=== PATIENT | male | born 1940 | race Caucasian/White ===

== ENCOUNTER 2017-12-23 20:45 | Inpatient (IN) | payer OTHER, MEDICARE ==
[~2017-12-23] VITALS: Ht 177.8 cm; Wt 87.2 kg
[~2017-12-23 20:45] MED LIST: ALL300 PO; ASPCH81X PO; LISI-461 PO; MULTCHW PO; OMEGCAP2 PO; PRLSR20 PO; TERA5CAP PO; TRAM-10 PO; [UNRECOGNIZED DRUG - CODE] PO
[2017-12-23] MEDS ORDERED: SODIUM CHLORIDE 0.9% 1000ML 1,000 ML IV STA ×2 (21:15→22:52)
[2017-12-23] MEDS ORDERED: ONDANSETRON INJ 2 MG/ML 2 ML VIAL IV STA (21:15)
[2017-12-23] MEDS ORDERED: ACETAMINOPHEN 500 MG TAB PO STA (21:15)
--- NOTE | 2017-12-23 21:26 | EMERGENCY ROOM VISIT NOTE ---
History Report prepared by Kalpana: Radha Berrios Under the Supervision of: Dr. Familia Giron M.D. First contact with patient: 21:09 Chief Complaint: ILLNESS Stated Complaint: LOSS OF APPETITE, EXTREME MUSCLE PAIN, JOINT PAIN History of Present Illness The patient is a 77 year old male who presents to the Emergency Room with complaints of constant generalized illness beginning six days ago. The patient reports muscle pain, fatigue, joint pain, decreased appetite, sorethroat, and diarrhea. The patient went to a walk in clinic and to Dr. Powers's office where he had a strep test which was negative. He denies having a flu swab. The patient did not get a flu shot this year. He denies any cough, shortness of breath, fever, nasal congestion, or abdominal pain. The patient states he has urinated on himself and lost control of his bowels yesterday. The patient states he has had no sick contacts. The patient states he had a dentist appointment two days before he got sick. He denies any cardiac history. Source of History: patient Onset: six days ago Position: other (generalized) Quality: other (illness) Timing: constant Associated Symptoms: + sorethroat, + diarrhea, No fevers, No cough, No SOB Review of Systems See HPI for pertinent positives & negatives. A total of 10 systems reviewed and were otherwise negative. Past Medical & Surgical Medical Problems: (1) GRISELDA (acute kidney injury) (2) Hyperkalemia (3) No Known Active Medical Problems Family History Patient reports no known family medical history. Social History Smoking Status: Never Smoker Marital Status: Housing Status: lives with significant other Occupation Status: employed Current/Historical Medications Scheduled Allopurinol (Allopurinol), 300 MG PO QAM Aspirin (Aspirin Chewable), 81 MG PO QAM Calcium Carbonate-Cholecalcife (Calcium 500-100 mg-Unit), 1 TAB PO QAM Krill Oil (Krill Oil), 1 CAP DAILY Lisinopril (Zestril), 20 MG PO DAILY Multiple Vitamins W/ Minerals (Centrum Silver), 1 TAB PO QAM Naproxen (Aleve), 440 MG PO prn ud Omeprazole (Prilosec), 20 MG PO QAM Terazosin Hcl (Hytrin), 5 MG PO HS Allergies Coded Allergies: No Known Allergies (Verified , 11/30/15) Physical Exam Vital Signs Date Time Temp Pulse Resp B/P (MAP) Pulse Ox O2 Delivery O2 Flow Rate FiO2 12/23/17 23:01 90 12/23/17 22:59 90 16 125/61 95 Room Air 12/23/17 20:49 36.9 87 20 127/67 93 Room Air Physical Exam GENERAL: Patient is in no acute distress. HEENT: No acute trauma, normocephalic atraumatic, mucous membranes dry, no nasal congestion, no scleral icterus, thrush-like patches on soft and hard palate. NECK: No stridor, no adenopathy, no meningismus, trachea is midline. LUNGS: Clear to auscultation bilaterally, no wheeze, no rhonchi, breath sounds equal. HEART: Without murmurs gallops or rubs, regular rate and rhythm. ABDOMEN: Soft, nontender, bowel sounds positive, no hernias, no peritonitis. EXTREMITIES: No cyanosis or edema, full range of motion of all the joints without pain or difficulty, no signs for acute trauma. NEUROLOGIC: Oriented x 3, no acute motor or sensory deficits, no focal weakness. SKIN: Flat, erythematous, blanching, patchy, rash noted about the body and extremities. Medical Decision & Procedures ER Provider Diagnostic Interpretation: Radiology results as stated below per my review and radiologist interpretation: CHEST ONE VIEW PORTABLE FINDINGS: Lung volumes are mildly diminished. Linear bibasilar opacities suggest atelectasis or scarring. There are few calcified granulomas. There is no evidence for pulmonary edema and there is no consolidation to suggest pneumonia. Mild cardiomegaly is noted. There is no pneumothorax or pleural effusion. Calcified mediastinal and bilateral hilar lymph nodes are noted. IMPRESSION: 1. No acute cardiopulmonary findings. 2. Linear bibasilar opacities suggestive of atelectasis or scarring. Electronically signed by: Joe Thompson M.D. CT ABDOMEN & PELVIS Without Contrast: Small bilateral pleural effusion with adjacent atelectasis and trace pericardial effusion. Calcified granulomata within liver and spleen. Question mild gallbladder wall thickening. Pancreas and adrenal glands are unremarkable. Probable cysts within both kidneys. No hydronephrosis. Bowel is unremarkable. Appendix is unremarkable. Degenerative changed of the osseous structures. Radiologist: Robin Lara MD Laboratory Results 12/23/17 21:50 Red Blood Count 3.93, Mean Corpuscular Volume 85.5, Mean Corpuscular Hemoglobin 29.8, Mean Corpuscular Hemoglobin Concent 34.8, Mean Platelet Volume 11.8, Neutrophils (%) (Auto) 80.1, Lymphocytes (%) (Auto) 13.2, Monocytes (%) (Auto) 4.8, Eosinophils (%) (Auto) 1.5, Basophils (%) (Auto) 0.2, Neutrophils # (Auto) 4.20, Lymphocytes # (Auto) 0.69, Monocytes # (Auto) 0.25, Eosinophils # (Auto) 0.08, Basophils # (Auto) 0.01 12/23/17 21:50 Test 12/23/17 21:40 12/23/17 21:50 12/23/17 23:30 Influenza Type A Antigen Neg for Influ A (NEG) Influenza Type B Antigen Neg for Influ B (NEG) White Blood Count 5.24 K/uL (4.8-10.8) Red Blood Count 3.93 M/uL (4.7-6.1) Hemoglobin 11.7 g/dL (14.0-18.0) Hematocrit 33.6 % (42-52) Mean Corpuscular Volume 85.5 fL (80-100) Mean Corpuscular Hemoglobin 29.8 pg (25-34) Mean Corpuscular Hemoglobin Concent 34.8 g/dl (32-36) Platelet Count 46 K/uL (130-400) Mean Platelet Volume 11.8 fL (7.4-10.4) Neutrophils (%) (Auto) 80.1 % Lymphocytes (%) (Auto) 13.2 % Monocytes (%) (Auto) 4.8 % Eosinophils (%) (Auto) 1.5 % Basophils (%) (Auto) 0.2 % Neutrophils # (Auto) 4.20 K/uL (1.4-6.5) Lymphocytes # (Auto) 0.69 K/uL (1.2-3.4) Monocytes # (Auto) 0.25 K/uL (0.11-0.59) Eosinophils # (Auto) 0.08 K/uL (0-0.5) Basophils # (Auto) 0.01 K/uL (0-0.2) RDW Standard Deviation 45.3 fL (36.4-46.3) RDW Coefficient of Variation 14.5 % (11.5-14.5) Immature Granulocyte % (Auto) 0.2 % Immature Granulocyte # (Auto) 0.01 K/uL (0.00-0.02) Dohle Bodies 1+ Platelet Estimate SIGNIFIC DECREASED Erythrocyte Sedimentation Rate > 90 mm/hr (0-14) Prothrombin Time 10.4 SECONDS (9.0-12.0) Prothromb Time International Ratio 1.0 (0.9-1.1) Activated Partial Thromboplast Time 29.4 SECONDS (21.0-31.0) Partial Thromboplastin Ratio 1.1 Anion Gap 16.0 mmol/L (3-11) Est Creatinine Clear Calc Drug Dose 6.8 ml/min Estimated GFR () 4.8 Estimated GFR (Non- 4.2 BUN/Creatinine Ratio 15.8 (10-20) Lactic Acid Level 0.9 mmol/L (0.4-2.0) Calcium Level 9.2 mg/dl (8.5-10.1) Magnesium Level 1.9 mg/dl (1.8-2.4) Total Bilirubin 1.1 mg/dl (0.2-1) Aspartate Amino Transf (AST/SGOT) 27 U/L (15-37) Alanine Aminotransferase (ALT/SGPT) 23 U/L (12-78) Alkaline Phosphatase 171 U/L (45-117) Total Creatine Kinase 19 U/L (39-308) Troponin I < 0.015 ng/ml (0-0.045) C-Reactive Protein 27.30 mg/dl (0-0.29) Total Protein 6.7 gm/dl (6.4-8.2) Albumin 2.4 gm/dl (3.4-5.0) Globulin 4.3 gm/dl (2.5-4.0) Albumin/Globulin Ratio 0.6 (0.9-2) Thyroid Stimulating Hormone (TSH) 1.630 uIu/ml (0.300-4.500) Lyme Disease IgG Antibody NEG (NEG) Lyme Disease IgM Antibody NEG (NEG) Monoscreen NEG (NEG) Laboratory results reviewed by me. Medications Administered Medications (Trade) Dose Ordered Sig/Nahomy Route Start Time Stop Time Status Last Admin Dose Admin Ondansetron HCl (Zofran Inj) 4 mg NOW STAT IV 12/23/17 21:15 12/23/17 21:19 DC 12/23/17 21:56 4 MG Sodium Chloride 1,000 ml @ 999 mls/hr Q1H1M STAT IV 12/23/17 21:15 12/23/17 22:15 DC 12/23/17 21:56 999 MLS/HR Acetaminophen (Tylenol Tab) 1,000 mg NOW STAT PO 12/23/17 21:15 12/23/17 21:19 DC 12/23/17 21:56 1,000 MG Ceftriaxone Sodium 2000 mg/ Dextrose 70 ml @ 100 mls/hr ONE STAT IV 12/23/17 22:51 12/23/17 23:32 DC 12/23/17 23:16 100 MLS/HR Sodium Chloride 1,000 ml @ 200 mls/hr Q5H STAT IV 12/23/17 22:52 12/24/17 03:51 12/23/17 23:01 200 MLS/HR ECG Indication: weakness Rate (beats per minute): 83 Rhythm: normal sinus Findings: no acute ischemic change, other (baseline artifact) Change: EKG interpreted by me. ED Course 2109: The patient was evaluated in room B2. A complete history and physical exam was performed. 2114: Ordered Acetaminophen 1000 mg PO, Sodium Chloride 1000 ml @ 999 mls/hr IV , Zofran Inj 4 mg IV. 2250: Ordered Ceftriaxone Sodium 2000 mg/Dextrose 70 ml @ 100 mls/hr IV, Sodium Chloride 1000 ml @ 200 mls/hr IV. 2: Ordered Sodium Chloride 1000 ml @ 200 mls/hr IV. 2253: I updated the patient on his test results. He is agreeable to a CT. 2301: Discussed the patient's case with Dr. Nevarez-[facility] [place] Resident. The patient will be evaluated for further management. Medical Decision Differential diagnoses: dehydration, endocarditis, sepsis, lyme's disease, UTI, pneumonia, rhabdomyolysis, viral illness, influenza, renal or liver failure. There is no leukocytosis. The patient is anemic and he has a low platelet count. Renal panel testing suggests some mild acidosis. There is acute renal failure with a creatinine of over 10. No hepatitis. The patient appears to be in a euthyroid state. Urinalysis result is pending although, the nursing staff felt the urine dip was fairly unremarkable. Chest film does not show pneumonia or CHF. EKG shows a normal sinus rhythm, no acute ischemia. Cardiac enzyme testing times one is not consistent with acute cardiac injury. Lactic acid level is not elevated making sepsis less likely. Blood cultures are pending. Abdominal and pelvis CT does not show hydronephrosis, no bowel obstruction. Sedimentation rate and CRP are markedly elevated. [place] testing, flu testing and Lyme disease testing is negative. The patient received IV saline, oral Tylenol, IV Zofran. He was given IV ceftriaxone. The patient is in need of a hospital stay. He is somewhat acidotic and in acute renal failure. He has a low platelet count and is anemic. I am concerned about the possibility of endocarditis/bacteremia, especially, given his recent dental cleaning. Further care in the hospital is warranted. I spoke to case management, I discussed all my results with the patient. The on- call hospitalist was consulted. Medication Reconcilliation Current Medication List: was personally reviewed by me Blood Pressure Screening Patient's blood pressure: Normal blood pressure Consults Time Called: 2257 Consulting Physician: Dr. Loyola Resident Returned Call: 2300 Discussed the patient's case with Dr. Loyola Resident. The patient will be evaluated for further management. Impression Primary Impression: Acute renal failure Additional Impressions: Thrombocytopenia Rash Dehydration Scribe Attestation The scribe's documentation has been prepared under my direction and personally reviewed by me in its entirety. I confirm that the note above accurately reflects all work, treatment, procedures, and medical decision making performed by me. Departure Information Dispostion Being Evaluated By Hospitalist Referrals No Doctor, Assigned (PCP) Patient Instructions My [facility] Problem Qualifiers
[2017-12-23] MEDS ORDERED: KRIL1000 (21:35)
[2017-12-23] MEDS ORDERED: LISI-725 PO (21:35)
[2017-12-23] MEDS ORDERED: NAPR1TAB9 PO (21:38)
--- NOTE | 2017-12-23 21:40 | DIAGNOSTIC IMAGING REPORT ---
CHEST ONE VIEW PORTABLE CLINICAL HISTORY: Altered mental status. Weakness. COMPARISON STUDY: Chest CT April 03, 2011. FINDINGS: Lung volumes are mildly diminished. Linear bibasilar opacities suggest atelectasis or scarring. There are few calcified granulomas. There is no evidence for pulmonary edema and there is no consolidation to suggest pneumonia. Mild cardiomegaly is noted. There is no pneumothorax or pleural effusion. Calcified mediastinal and bilateral hilar lymph nodes are noted. IMPRESSION: 1. No acute cardiopulmonary findings. 2. Linear bibasilar opacities suggestive of atelectasis or scarring. Electronically signed by: Joe Thompson M.D. 12/23/2017 9:39 PM Dictated Date/Time: 12/23/2017 9:37 PM
[2017-12-23 22:18] LABS: PTT PATIENT 29.4 SECONDS (21.0-31.0)
[2017-12-23 22:32] LABS: INFLUENZA B ANTIGEN Neg for Influ B (NEG)
[2017-12-23 22:36] LABS: BASO % 0.2 %; BASO ABS # 0.01 K/uL (0-0.2); EOS % 1.5 %; EOS ABS # 0.08 K/uL (0-0.5); HEMATOCRIT 33.6 % (42-52); HEMOGLOBIN 11.7 g/dL (14.0-18.0); IG# 0.01 K/uL (0.00-0.02); LYMPH % 13.2 %; LYMPH ABS # 0.69 K/uL (1.2-3.4); MEAN CELL VOLUME 85.5 fL (80-100); MEAN CORPUSCULAR HEMOGLOBIN 29.8 pg (25-34); MEAN CORPUSCULAR HGB CONC 34.8 g/dl (32-36); MEAN PLATELET VOLUME 11.8 fL (7.4-10.4); MONO % 4.8 %; MONO ABS # 0.25 K/uL (0.11-0.59); NEUT % 80.1 %; PLATELET COUNT 46 K/uL (130-400); RED CELL DISTRIBUTION WIDTH CV 14.5 % (11.5-14.5); RED CELL DISTRIBUTION WIDTH SD 45.3 fL (36.4-46.3); WHITE BLOOD COUNT 5.24 K/uL (4.8-10.8)
[2017-12-23 22:41] LABS: ALBUMIN 2.4 gm/dl (3.4-5.0); ALKALINE PHOSPHATASE 171 U/L (45-117); ALT/SGPT 23 U/L (12-78); AST/SGOT 27 U/L (15-37); BLOOD UREA NITROGEN 168 mg/dl (7-18); CALCIUM 9.2 mg/dl (8.5-10.1); CARBON DIOXIDE 18 mmol/L (21-32); GLUCOSE 84 mg/dl (70-99); POTASSIUM 5.2 mmol/L (3.5-5.1); SODIUM 133 mmol/L (136-145); TOTAL PROTEIN 6.7 gm/dl (6.4-8.2)
[2017-12-23] MEDS ORDERED: CEFTRIAXONE SOD INJ 2,000 MG in DEXTROSE 5% 50ML 50 ML IV STA (22:51)
--- NOTE | 2017-12-23 23:41 | History and Physical ---
History & Physical Date & Time of Service: Dec 23, 2017 at 23:41 Chief Complaint: Loss Of Appetite, Extreme Muscle Pain, Joint Pain Primary Care Physician: Stefano Powers M.D. History of Present Illness Source: patient, clinic records, hospital records This is a 77 yo m with a h/o htn, gout that is presenting to us with general malaise, myalgias, fatigue x 7 days. The patient states that 7 days ago he started to suffer from severe sore throat, myalgias, subjective fever and fatigue. He was seen in a walk in clinic on dec 18 the day the symptoms started and rapid strep negative so symptomatic treatment was recommended. He then returned on dec 222017 when he had ongoing symptoms and in fact worsening in his sore throat. He was assessed and started on Augmentin/ Doxy ( apparently only has three doses) and symptomatic treatment. No fever was measured on either of these visits. He came into the ED for further worsening of symptoms despite increasing fluid intake and taking abx. He was evaluated in the ED and found to have a Cr of 10, ESR > 90 and received 2L of NSS as well as 2 G of rocephin for concern for endocarditis as he had dental work (not cleaning) two days prior to the symptoms starting. No history of ESRD/ cysts in kidney in the family. Past Medical/Surgical History HTN Gout Hernia repair GERD Family History Patient reports no known family medical history. Social History Smoking Status: Never Smoker Smokeless Tobacco Use: No Alcohol Use: none Drug Use: none Marital Status: Occupational Status: employed Immunizations History of Influenza Vaccine: Unknown History of Tetanus Vaccine?: Unknown History of Pneumococcal: Unknown History of Hepatitis B Vaccine: Unknown Multi-Drug Resistant Organisms History of MDRO: No Allergies Coded Allergies: No Known Allergies (Verified , 11/30/15) Home Medications Scheduled Allopurinol (Allopurinol), 300 MG PO QAM Aspirin (Aspirin Chewable), 81 MG PO QAM Calcium Carbonate-Cholecalcife (Calcium 500-100 mg-Unit), 1 TAB PO QAM Krill Oil (Krill Oil), 1 CAP DAILY Lisinopril (Zestril), 20 MG PO DAILY Multiple Vitamins W/ Minerals (Centrum Silver), 1 TAB PO QAM Naproxen (Aleve), 440 MG PO prn ud Omeprazole (Prilosec), 20 MG PO QAM Terazosin Hcl (Hytrin), 5 MG PO HS Review of Systems Constitutional: + fever, + chills, + sweats, + weakness, + fatigue, No weight loss Eyes: No worsening of vision ENT: No hearing loss Respiratory: + cough (prior to onset of symptoms but have since resolved), No sputum, No wheezing, No shortness of breath, No dyspnea on exertion, No dyspnea at rest Cardiovascular: No chest pain, No palpitations Abdomen: No pain, No nausea, No vomiting, No diarrhea, No constipation Musculoskeletal: + joint pain, + muscle pain Genitourinary - Male: + problem reported (decreased U/O however no change in colour, no hematuria ), No hematuria, No dysuria Neurologic: + weakness, No numbness/tingling, No balance problems Psychiatric: No depression symptoms, No anxiety Endocrine: + fatigue Integumentary: + rash (new olman like rash noted by the ED physician) Physical Exam Vital Signs Date Time Temp Pulse Resp B/P (MAP) Pulse Ox O2 Delivery O2 Flow Rate FiO2 12/23/17 23:01 90 12/23/17 22:59 90 16 125/61 95 Room Air 12/23/17 20:49 36.9 87 20 127/67 93 Room Air General Appearance: + mild distress Head: normocephalic, atraumatic Eyes: normal inspection, + pertinent finding (slightly injected sclera) ENT: + pertinent finding (white patches on entire tongue, unable to remove, difficult to assess tonsils well , dry mucus membranes ) Neck: no JVD, trachea midline Respiratory/Chest: normal breath sounds, no respiratory distress, no accessory muscle use Cardiovascular: regular rate, rhythm, no murmur, normal peripheral pulses Abdomen/GI: normal bowel sounds, non tender, soft Back: normal inspection, no CVA tenderness, normal range of motion Extremities/Musculoskelatal: normal inspection, no calf tenderness, no pedal edema, normal range of motion Neurologic/Psych: alert, normal mood/affect, oriented x 3 Skin: + pertinent finding (diffuse olman/ erythematous rash, no utricaria, not raised; mostly on chest, back, neck and some extension to extremities) Lymphatic: + cervical node abnormality (ant cerv lymph) Diagnostics Laboratory Results Results Past 24 Hours Test 12/23/17 21:15 12/23/17 21:40 12/23/17 21:50 Range/Units Influenza Type A Antigen Neg for Influ A NEG Influenza Type B Antigen Neg for Influ B NEG White Blood Count 5.24 4.8-10.8 K/uL Red Blood Count 3.93 4.7-6.1 M/uL Hemoglobin 11.7 14.0-18.0 g/dL Hematocrit 33.6 42-52 % Mean Corpuscular Volume 85.5 80-100 fL Mean Corpuscular Hemoglobin 29.8 25-34 pg Mean Corpuscular Hemoglobin Concent 34.8 32-36 g/dl Platelet Count 46 130-400 K/uL Mean Platelet Volume 11.8 7.4-10.4 fL Neutrophils (%) (Auto) 80.1 % Lymphocytes (%) (Auto) 13.2 % Monocytes (%) (Auto) 4.8 % Eosinophils (%) (Auto) 1.5 % Basophils (%) (Auto) 0.2 % Neutrophils # (Auto) 4.20 1.4-6.5 K/uL Lymphocytes # (Auto) 0.69 1.2-3.4 K/uL Monocytes # (Auto) 0.25 0.11-0.59 K/uL Eosinophils # (Auto) 0.08 0-0.5 K/uL Basophils # (Auto) 0.01 0-0.2 K/uL RDW Standard Deviation 45.3 36.4-46.3 fL RDW Coefficient of Variation 14.5 11.5-14.5 % Immature Granulocyte % (Auto) 0.2 % Immature Granulocyte # (Auto) 0.01 0.00-0.02 K/uL Dohle Bodies 1+ Platelet Estimate SIGNIFIC DECREASED Erythrocyte Sedimentation Rate > 90 0-14 mm/hr Prothrombin Time 10.4 9.0-12.0 SECONDS Prothromb Time International Ratio 1.0 0.9-1.1 Activated Partial Thromboplast Time 29.4 21.0-31.0 SECONDS Partial Thromboplastin Ratio 1.1 Sodium Level 133 136-145 mmol/L Potassium Level 5.2 3.5-5.1 mmol/L Chloride Level 99 98-107 mmol/L Carbon Dioxide Level 18 21-32 mmol/L Anion Gap 16.0 3-11 mmol/L Blood Urea Nitrogen 168 7-18 mg/dl Creatinine 10.70 0.60-1.40 mg/dl Est Creatinine Clear Calc Drug Dose 6.8 ml/min Estimated GFR () 4.8 Estimated GFR (Non- 4.2 BUN/Creatinine Ratio 15.8 10-20 Random Glucose 84 70-99 mg/dl Lactic Acid Level 0.9 0.4-2.0 mmol/L Calcium Level 9.2 8.5-10.1 mg/dl Magnesium Level 1.9 1.8-2.4 mg/dl Total Bilirubin 1.1 0.2-1 mg/dl Aspartate Amino Transf (AST/SGOT) 27 15-37 U/L Alanine Aminotransferase (ALT/SGPT) 23 12-78 U/L Alkaline Phosphatase 171 45-117 U/L Total Creatine Kinase 19 39-308 U/L Troponin I < 0.015 0-0.045 ng/ml C-Reactive Protein 27.30 0-0.29 mg/dl Total Protein 6.7 6.4-8.2 gm/dl Albumin 2.4 3.4-5.0 gm/dl Globulin 4.3 2.5-4.0 gm/dl Albumin/Globulin Ratio 0.6 0.9-2 Thyroid Stimulating Hormone (TSH) 1.630 0.300-4.500 uIu/ml Lyme Disease IgG Antibody NEG NEG Lyme Disease IgM Antibody NEG NEG Monoscreen NEG NEG Microbiology Results 12/23/17 Blood Culture, Received Pending 12/23/17 Blood Culture, Received Pending Diagnostic Radiology [~ rep ct add3]] CHEST ONE VIEW PORTABLE CLINICAL HISTORY: Altered mental status. Weakness. COMPARISON STUDY: Chest CT April 03, 2011. FINDINGS: Lung volumes are mildly diminished. Linear bibasilar opacities suggest atelectasis or scarring. There are few calcified granulomas. There is no evidence for pulmonary edema and there is no consolidation to suggest pneumonia. Mild cardiomegaly is noted. There is no pneumothorax or pleural effusion. Calcified mediastinal and bilateral hilar lymph nodes are noted. IMPRESSION: 1. No acute cardiopulmonary findings. 2. Linear bibasilar opacities suggestive of atelectasis or scarring. CT abd- - per stat rad: - small bilat pleural effusions and atelectasis - possible thickening of gall bladder wall - probably cyts in bilat kidneys without hydronephrosis - appendix unremarkable EKG HR 83 Normal sinus rhythm Normal ECG When compared with ECG of 05-MAY-2015 07:24, No significant change was found Impression Assessment and Plan This is a 77 yo m presenting to us with severe GRISELDA possibly secondary to dehydration, viral process or bacterial infection. The patient was on both augmentin and doxy and in light of this viral exanthem type rash which started today there is question if this is secondary to EBV infection even though monospot screen is negative. The patient did have recent dental work however with no new murmur, no history of high risk valve abnormalities unlikely however will truly assess with echo and continue coverage with Rocephin 2 G daily ( cross reactivity to amoxil low so unlikely to result in a worsening rash ) with one dose of dapto ( vanco considered however deferred because of Cr level ). Peripheral smears and viral panels of possible viral sources ordered. GRISELDA secondary to dehydration on CKD III, reflective of prerenal - BL cr is approx 1.4-1.5 - 2 L NSS in ED and cont at 150cc/h - I&O and daily weight - Consult nephro- discussed case with swine extension field specialist and they are aware - repeat CMP in am Myalgias/ erythematous rash - as above will assess for EBV immunoglobulins as well as CMV and parvovirus - echo to assess for possible endocarditis - Rocephin 2 G IV daily cont - Dapto x 1 dose - consult ID - flu neg, lyme neg - peripheral smear - There is possible thickening of the gallbladder wall, no symptoms of gallbladder dysfunction and abd exam was benign; will wait for final read from [facility] radiologists and possible HIDA vs gall bladder USG can be at the discretion of the day team Thrombocytopenia - repeat in am, peripheral smear Hyperkalemia - no concerning changes on EKG - repeat in am - monitor on tele overnight and repeat BMP in am Hyponatremia - NSS @ 150 cc/h - recheck level in the am HTN - lisinopril held - terazosin cont - ASA held because of PLT Gout - allopurinol held because of Cr GERD cont PPI equiv to omeprazole 20 mg DVT Prophylaxis SCD - reassess plt in am and reassess for chemical prophylaxis Attending addendum: I have physically seen this patient, have supervised the medical residents activities, and agree with the H&P unless as otherwise noted. Assessment and Plan: Acute kidney failure/dehydration/prerenal state/history CKD stage 3/hypertension -- The patient will be admitted to telemetry for serial cardiac enzymes, serial EKG's, cardiac rhythm monitoring and a complete echocardiogram. Order renal ultrasound Follow urine culture and sensitivity Received 2 L normal saline in the ED, and continue 150 ML's per hour Hold lisinopril and aspirin Continue Terazosin Case has been discussed with nephrology, who will see the patient in a.m. Myalgias/rash-- Viral studies sent. Testing for influenza and Lyme are both negative Ceftriaxone 1 g IV daily Daptomycin 1 dose given Thrombocytopenia-- Viral studies pending Order peripheral smear Follow-up for developing ITP Level of Care Telemetry Advanced Directives Existing Advance Directive: No Existing Living Will: No Existing Power of Dry Cell Sealer: No Resuscitation Status FULL RESUSCITATION VTE Prophylaxis VTE Risk Assessment Done? Y/N: Yes Risk Level: Moderate Given or contraindicated: SCD's Social Service Consult None Apply Note Total Time: Critical Care 30 - 74 minutes Additional Copies To She Gallardo C.R.N.P. Baker, Jeffrey H., M.D.
[2017-12-23] MEDS ORDERED: ACETAMINOPHEN 325 MG TAB PO PRN (23:45)
[2017-12-24] VITALS (24 sets, daily range): BP systolic 90–134; BP diastolic 50–71; PULSE 7–86; TEMP 36.5–37; O2SAT 90–98; Ht 177.8 cm; Wt 87.2 kg
[2017-12-24] MEDS ORDERED: FLUCONAZOLE / NSS 200 MG in PREMIXED NSS 100 ML IV STA (00:28)
[2017-12-24] MEDS ORDERED: CLOTRIMAZOLE 10 MG TROCHE LOZ STA (00:29)
[2017-12-24] MEDS ORDERED: MoRPHine SULFATE 4 MG/ML 1 ML CARP\\VIAL IV PRN (00:30)
[2017-12-24] MEDS: MoRPHine SULFATE 2 MG/ML CARP IV PRN (00:31)
[2017-12-24] MEDS ORDERED: HYDROmorphone INJ 1 MG/ML SYR IV STA (01:40)
[2017-12-24] MEDS: SODIUM CHLORIDE 0.9% 1000ML 1,000 ML IV SCH ×2 (01:57→08:40)
[2017-12-24] MEDS ORDERED: DAPTOmycin IV 550 MG in SODIUM CHLORIDE 0.9% 50ML 50 ML IV SCH (02:15)
[2017-12-24] MEDS ORDERED: DAPTOmycin IV 550 MG in SYRINGE 0 ML IV SCH (02:30)
[2017-12-24] MEDS ORDERED: FLUCONAZOLE CONSULT ACTIVE PRN (05:00)
[2017-12-24 05:57] LABS: HEMATOCRIT 30.9 % (42-52); HEMOGLOBIN 10.8 g/dL (14.0-18.0); MEAN CELL VOLUME 86.1 fL (80-100); MEAN CORPUSCULAR HEMOGLOBIN 30.1 pg (25-34); RED CELL DISTRIBUTION WIDTH CV 14.5 % (11.5-14.5); WHITE BLOOD COUNT 4.93 K/uL (4.8-10.8)
[2017-12-24 05:59] LABS: MEAN PLATELET VOLUME 10.9 fL (7.4-10.4); PLATELET COUNT 41 K/uL (130-400)
[2017-12-24 06:34] LABS: BASO % 0.2 %; BASO ABS # 0.01 K/uL (0-0.2); EOS ABS # 0.05 K/uL (0-0.5); IG# 0.01 K/uL (0.00-0.02); LYMPH % 12.2 %; MONO ABS # 0.15 K/uL (0.11-0.59); NEUT % 83.4 %; NEUT ABS # 4.11 K/uL (1.4-6.5)
--- NOTE | 2017-12-24 06:45 | Family Medicine Progress Note ---
Progress Note Date of Service Dec 24, 2017. Subjective Pt evaluation today including: conversation w/ patient, conversation w/ family , physical exam, chart review, lab review, review of studies, conversation w/ regulatory affairs consultant, review of inpatient medication list Patient states that he is aching all over. He states that the pain started approximately 2 weeks ago around the same time that he started having shakes/ tremors and some nausea. His last blood work was 1-2 years ago he was never told of kidney issues at that time. Currently patient states that he is feeling "just terrible". He otherwise denies fevers/chills, headaches, CP, palpitations, dyspnea, abdominal pain, lower extremity swelling or rashes. He has diminished appetite. He denies issues with ambulation. He denies any urinary symptoms with pressure/stream, excessive nocturia, or dribbling or urinary retention. Stooling appropriately. ROS is unremarkable except as noted above. Objective Vital Signs Date Time Temp Pulse Resp B/P (MAP) Pulse Ox O2 Delivery O2 Flow Rate FiO2 12/24/17 05:20 99/51 (67) 12/24/17 04:00 Room Air 12/24/17 03:31 37.0 86 19 90/50 (63) 91 Nasal Cannula 12/24/17 01:17 36.7 86 16 117/60 98 Room Air 12/24/17 00:19 80 20 143/68 98 Room Air 12/23/17 23:01 90 12/23/17 22:59 90 16 125/61 95 Room Air 12/23/17 20:49 36.9 87 20 127/67 93 Room Air Physical Exam General Appearance: WD/WN, no apparent distress Eyes: normal inspection ENT: hearing grossly normal, + pertinent finding (Dry mucosal membrane) Neck: supple, no adenopathy Respiratory/Chest: lungs clear, normal breath sounds, no respiratory distress, no accessory muscle use Cardiovascular: regular rate, rhythm, no murmur Abdomen: normal bowel sounds, non tender, soft Extremities: non-tender, normal inspection, no pedal edema, no calf tenderness Neurologic/Psychiatric: alert, normal mood/affect, oriented x 3 Skin: normal color, warm/dry, no rash Laboratory Results Results Past 24 Hours Test 12/24/17 07:31 12/24/17 10:15 12/24/17 11:43 12/24/17 16:49 Range/Units Prostate Specific Antigen 5.900 0.000-4.000 ng/ml Anti-Streptolysin O Antibody Screen NEG <200 IU IU/ml Hepatitis A IgM Antibody NON-REACTIVE NON-REACTIVE Hepatitis B Surface Antigen NEG NEG Hepatitis B Core IgM Antibody NON-REACTIVE NON-REACTIVE Hepatitis C Antibody NEG NEG Phosphorus Level 4.7 2.5-4.9 mg/dl Magnesium Level 1.9 1.8-2.4 mg/dl Iron Level 12 35-175 mcg/dl Total Iron Binding Capacity 155 250-450 mcg/dl Transferrin 133 200-360 mg/dl Transferrin % Saturation 6 20-50 % Ferritin 563.3 8.0-388.0 ng/ml 25-Hydroxy Vitamin D Total 31.3 30-100 ng/ml Parathyroid Hormone (Intact) 84.9 18.4-80.1 pg/mL Hepatitis B Surface Antibody NEG Test 12/24/17 20:35 12/25/17 04:59 Range/Units Urine Random Creatinine 199.0 mg/dl Urine Random Sodium 48 mEq/L Assessment and Plan 77 yo M presenting to us with severe GRISELDA possibly secondary to dehydration, viral process or bacterial infection. The patient was on both augmentin and doxy and in light of this viral exanthem type rash which started today there is question if this is secondary to EBV infection even though monospot screen is negative. The patient did have recent dental work however with no new murmur, no history of high risk valve abnormalities unlikely however will truly assess with echo and continue coverage with Rocephin 2 G daily (cross reactivity to amoxil low so unlikely to result in a worsening rash) with one dose of dapto ( vanco considered however deferred because of Cr level). Peripheral smears and viral panels of possible viral sources ordered. GRISELDA - secondary to dehydration on CKD III, reflective of prerenal and some degree of post-renal from prostatomegaly. Baseline Cr is approx 1.4-1.5. IVF with NSS initially. Nephrology consulted, rec appreciated. s/p emergent permcath insertion for uremic symptoms - For dialysis tonight - Renal U/S ordered - Urine Na and urine Cr orderd - Multiple Myeloma and rheumatology labs ordered and pending - I&O and daily weight - Trend BMP Myalgias/ erythematous rash - ID consulted, recs appreciated. Flu neg, lyme neg - EBV immunoglobulins as well as CMV and parvovirus pending - Echo to assess for possible endocarditis. Consider ongoing need for daptomycin - Continue Rocephin 2 G IV daily, Trace blood and urine cultures. Evidence of inflammation - ESR >90, CRP ~27 - Trend ESR/CRP - Rheumatology labs ordered and pending (concern for ANCA disease) Thrombocytopenia - possibly secondary to uremia - Trend CBC - ASA held because of low platelets Hyperkalemia - no concerning changes on EKG, and - Trend BMP Hyponatremia - resolved with IVF - Trend BMP HTN - Lisinopril held - Continue terazosin Gout - Allopurinol held because of Cr GERD - Omeprazole 20 mg DVT Prophylaxis SCD - Trend plt and reassess for chemical prophylaxis Resident Physician Supervision Note: I interviewed and examined the patient. Discussed with Dr. Vazquez and agree with findings and plan as documented in the note. Any exceptions or clarifications are listed here: None Documented By: Robin Salas hurting all over no significant LUTS other than 1x nocturia vitals noted fatigued somewhat shaky ARF - ?etiology - due to uremia and acid-base balance dialysis acutely. bland sediment but without clear etiology agree sending serologic w/u; ?BPH related but no clear hx c/w obstructive uropathy otherwise as above Resident Tracking Resident Involvement: Resident Care Provided Care Provided: Adult Hospital Medicine
[2017-12-24 06:54] LABS: ALBUMIN 1.9 gm/dl (3.4-5.0); CALCIUM 8.4 mg/dl (8.5-10.1); CREATININE 10.4 mg/dl (0.60-1.40); POTASSIUM 4.5 mmol/L (3.5-5.1); TOTAL PROTEIN 5.7 gm/dl (6.4-8.2)
--- NOTE | 2017-12-24 06:55 | DIAGNOSTIC IMAGING REPORT ---
ABD/PELVIS WITHOUT FOR STONE HISTORY: 77 years-old Male EVALUATE FLANK PAIN/HEMATURIA acute bilateral flank pain with hematuria COMPARISON: CT abdomen and pelvis 05/16/2011 TECHNIQUE: Multiple axial CT images of the abdomen and pelvis were obtained without contrast. A dose lowering technique was used consistent with the principals of OSCAR. FINDINGS: Trace bilateral pleural effusions with subsegmental bibasilar groundglass and linear consolidative opacities suggesting atelectasis or scarring. Respiratory motion limits evaluation of the lung bases. Calcified granulomas of the lung bases are noted in addition to multiple calcified shah limit of the liver and spleen. No pneumatosis or pneumoperitoneum identified. Inferior cardiac chambers are mildly enlarged with trace pericardial effusion. Coronary arterial disease. Hepatic steatosis. Unchanged 8 mm low attenuating lesion of the right hepatic lobe is again seen suggesting hepatic cyst. Spleen is enlarged, 15 cm. Pancreas and adrenal glands are unremarkable. There is suggestion of mild pericholecystic edema which is difficult to visualize secondary to moderate patient motion which limits the study. Moderate nonspecific bilateral perinephric stranding. Low attenuating lesions of the kidneys are again seen bilaterally which are not completely characterized on this noncontrast study, largest of which measures 2.3 cm within the superior pole right kidney suggesting renal cyst. 1.5 cm lesion of the anterior interpolar left kidney also suggests renal cyst. No renal calculi or obstructive uropathy. Prostate is enlarged with mass effect upon the bladder base. Mild bladder wall thickening with partial distention. Moderate atherosclerosis of the aorta. No bulky adenopathy. No bowel obstruction. Indeterminate 6 mm nodular density involve the left lower quadrant adjacent to the descending colon sigmoid junction as seen on image 324 series 3 however suggests benign etiology secondary to unchanged size and appearance from comparison study 05/16/2011. High attenuating material within the appendix may reflect appendicolith. Appendix is not appear to be inflamed. No definite bowel wall thickening. Mild diastases recti. Soft tissues are unremarkable. The bones appear intact. Degenerative changes are seen within the spine. Chondrocalcinosis of the bilateral hips. IMPRESSION: 1. Prostatomegaly with moderate circumferential wall thickening of the bladder suggesting sequela of chronic bladder outlet obstruction. Considering history of hematuria, correlate with urinalysis to exclude cystitis. 2. No renal calculi or obstructive uropathy. 3. Trace bilateral pleural effusions with bibasilar subsegmental atelectasis. 4. Prior granulomatous disease. 5. Splenomegaly. 6. Hepatic steatosis. 7. Cardiomegaly with trace pericardial effusion. The above report was generated using voice recognition software. It may contain grammatical, syntax or spelling errors. Electronically signed by: Brandon Wen M.D. 12/24/2017 6:53 AM Dictated Date/Time: 12/24/2017 6:43 AM
[2017-12-24] MEDS: CLOTRIMAZOLE 10 MG TROCHE LOZ SCH ×5 (07:00→23:00)
[2017-12-24 07:19] LABS: HEMOGLOBIN A1C 5.4 % (4.5-5.6)
[2017-12-24] MEDS: HYDROmorphone INJ 1 MG/ML SYR IV PRN ×3 (07:35→20:40)
[2017-12-24] MEDS: CALCIUM 600MG + VIT D 400 IU TAB PO SCH (07:40)
[2017-12-24] MEDS: PANTOprazole SOD 40 MG TAB PO SCH (07:40)
[2017-12-24] MEDS: CEROVITE ADV FORMULA TAB PO SCH (07:40)
[2017-12-24] MEDS ORDERED: NON-FORMULARY MEDICATION (Krill Oil 1 CAP) SCH (09:00)
[2017-12-24] MEDS ORDERED: FLUCONAZOLE / NSS 200 MG in PREMIXED NSS 100 ML IV SCH (09:00)
--- NOTE | 2017-12-24 09:06 | ECHOCARDIOGRAM REPORT ---
*NOTICE TO RECEIVING DEMOCRAT AGENCY This information is strictly Confidential and protected under [place] law. [place] law prohibits you from making any further disclosure of this information unless further disclosure is expressly permitted by the written consent of the person to whom it pertains or is authorized by law. A general authorization for the release of medical or other information is not sufficient for this purpose. Hospital accepts no responsibility if the information is made available to any other person, INCLUDING THE PATIENT. Interpretation Summary * Name: CLEVELAND GONZALEZ Study Date: 12/24/2017 06:32 AM BP: 99/51 mmHg * Patient Location: C.2E\S\E203\S\1 HR: 86 * : 1940 (M/d/yyyy) Gender: Male Height: 70 in * Age: 77 yrs Ethnicity: CA Weight: 201 lb * Ordering Physician: Nhung Tate * Referring Physician: Self, Referred * Performed By: Jean Claude Wilkinson RCS * * Reason For Study: Endocarditis * BSA: 2.1 m2 * -- Conclusions -- * Left ventricular systolic function is normal. * Grade I diastolic dysfunction, (abnormal relaxation pattern). * Borderline left atrial enlargement. * Right ventricular systolic pressure is normal. * The inferior vena cava is mildly dilated. * There are no obvious valvular lesions suggestive of endocarditis, but image quality was suboptimal. Procedure Details * A complete two-dimensional transthoracic echocardiogram was performed (2D, M-mode, Doppler and color flow Doppler). Left Ventricle * The left ventricle is normal in size. * There is normal left ventricular wall thickness. * Left ventricular systolic function is normal. * Ejection Fraction = 55-60%. * Grade I diastolic dysfunction, (abnormal relaxation pattern). * The left ventricular wall motion is normal. Right Ventricle * The right ventricle is normal in size and function. Atria * Borderline left atrial enlargement. * Right atrial size is normal. Mitral Valve * The mitral valve is grossly normal. * Significant mitral regurgitation is absent. Tricuspid Valve * The tricuspid valve is not well visualized, but is grossly normal. * There is trace tricuspid regurgitation. * Right ventricular systolic pressure is normal. Aortic Valve * The aortic valve is normal in structure and function. * No hemodynamically significant valvular aortic stenosis. * There is no significant aortic regurgitation. Pulmonic Valve * The pulmonic valve is not well visualized. Great Vessels * The aortic root is normal size. Pericardium/Pleural * There is no pericardial effusion. Great Vessels * The inferior vena cava is mildly dilated. MMode 2D Measurements and Calculations IVSd 1.1 cm IVSs 1.4 cm LVIDd 4.3 cm LVIDs 2.9 cm LVPWd 1.0 cm LVPWs 1.3 cm IVS/LVPW 1.0 FS 33.8 % EDV(Teich) 83.7 ml ESV(Teich) 31.0 ml EF(Teich) 62.9 % EDV(cubed) 80.3 ml ESV(cubed) 23.3 ml EF(cubed) 71.0 % % IVS thick 34.7 % % LVPW thick 30.7 % LV mass(C)d 151.4 grams LV mass(C)dI 72.4 grams/m\S\2 LV mass(C)s 128.7 grams LV mass(C)sI 61.5 grams/m\S\2 SV(Teich) 52.7 ml SI(Teich) 25.2 ml/m\S\2 SV(cubed) 57.0 ml SI(cubed) 27.3 ml/m\S\2 Ao root diam 3.2 cm Ao root area 7.9 cm\S\2 ACS 1.7 cm LA dimension 4.1 cm LA/Ao 1.3 EDV(sp4-el) 117.0 ml ESV(sp4-el) 47.0 ml EF(sp4-el) 59.8 % EDV(sp2-el) 87.0 ml ESV(sp2-el) 38.0 ml EF(sp2-el) 56.3 % SV(sp4-el) 70.0 ml SI(sp4-el) 33.5 ml/m\S\2 SV(sp2-el) 49.0 ml SI(sp2-el) 23.4 ml/m\S\2 Doppler Measurements and Calculations MV E max rakel 85.2 cm/sec MV A max rakel 94.9 cm/sec MV E/A 0.90 MV P1/2t max rakel 100.3 cm/sec MV P1/2t 72.6 msec MVA(P1/2t) 3.0 cm\S\2 MV dec slope 404.4 cm/sec\S\2 MV dec time 0.28 sec Ao V2 max 176.7 cm/sec Ao max PG 12.5 mmHg Ao max PG (full) 5.8 mmHg LV V1 max PG 6.7 mmHg LV V1 max 129.0 cm/sec PA V2 max 105.3 cm/sec PA max PG 4.4 mmHg TR max rakel 215.1 cm/sec
--- NOTE | 2017-12-24 10:44 | Nephrology Consultation ---
Nephrology Consultation Date & Providers Date of Consultation: Dec 24, 2017. Primary Care Provider: Stefano Powers M.D. Referring Provider: Reason for Consultation Evaluation management for acute kidney injury, hyperkalemia and metabolic acidosis. History of Present Illness Isaak is a 77-year-old gentlemen has been otherwise healthy with past medical history only significant for well-controlled hypertension and gout, admit to the hospital with acute kidney injury. Nephrology consult was requested to manage acute kidney injury, hyperkalemia and metabolic acidosis. Electronic medical records including labs and imaging are reviewed in detail during patient 's visit. Isaak was otherwise doing well until a week ago when he started feeling poorly. He had sore throat and was evaluated at urgent care, rapid strep throat was negative and manage conservatively. As sore throat did not improve he went to urgent care again on 12/22/2017 when he was started on Augmentin. However, he continued to feel poorly and presented to the emergency room yesterday for further evaluation. He reports poor p.o. intake for last almost a week. Urine output has been minimum and he reports urinating barely for last 7 days. He denies having fever or chills. Denies any recent change in his weight. He has chronic pain, has been taking naproxen 400 mg twice a day for many years. He was also on lisinopril 20 mg daily and omeprazole. On admission creatinine was 10.8, potassium 5.2 and bicarbonate was 18. Prior creatinine from 2014 was 1.4. Urine output has been minimum since admission. Blood pressure was stable. Urinalysis with trace proteinuria but no hematuria, has granular cast and calcium oxalate crystal. CT abdomen pelvis without contrast on admission was negative for hydronephrosis, has bilateral renal cyst , has evidence of chronic bladder outlet obstruction. Has been on lisinopril 20 mg daily, blood pressure has been well controlled. No history of diabetes, proteinuria coronary artery disease. Never smoked, no known family history of chronic kidney disease or end-stage renal disease. Currently feeling " terrible", but denies any specific symptoms, denies shortness of breath or chest pain. P.o. intake almost none. Remain oligo anuric. Allergies Coded Allergies: No Known Allergies (Verified , 11/30/15) Inpatient Medications Current Inpatient Medications Medications (Trade) Dose Ordered Sig/Nahomy Route Start Time Stop Time Status Last Admin Dose Admin Acetaminophen (Tylenol Tab) 650 mg Q4H PRN PO 12/23/17 23:45 01/22/18 23:44 Morphine Sulfate (MoRPHine SULFATE INJ) 2 mg Q2H PRN IV 12/24/17 00:30 01/07/18 00:29 12/24/17 00:31 2 MG Morphine Sulfate (MoRPHine SULFATE INJ) 4 mg Q2H PRN IV 12/24/17 00:30 01/07/18 00:29 Clotrimazole (Mycelex 10MG Itzel) 1 itzel [id number] SUMAN 12/24/17 07:00 01/03/18 06:59 12/24/17 07:00 1 ITZEL Ceftriaxone Sodium 2000 mg/ Dextrose 70 ml @ 100 mls/hr Q24H IV 12/24/17 23:00 12/24/17 23:41 Sodium Chloride 1,000 ml @ 150 mls/hr Q6H40M IV 12/24/17 02:00 01/23/18 01:59 12/24/17 08:40 150 MLS/HR Hydromorphone HCl (Dilaudid Inj) 1 mg Q3H PRN IV 12/24/17 01:45 01/07/18 01:44 12/24/17 07:35 1 MG Terazosin HCl (Hytrin Cap) 5 mg HS PO 12/24/17 21:00 01/23/18 20:59 Calcium/Vitamin D (Caltrate Plus Tab) 1 tab QAM PO 12/24/17 09:00 01/23/18 08:59 12/24/17 07:40 1 TAB Multivitamins/ Minerals (Multivitamin W/ Minerals Tab) 1 tab QAM PO 12/24/17 09:00 01/23/18 08:59 12/24/17 07:40 1 TAB Pantoprazole Sodium (Protonix Tab) 40 mg QAM PO 12/24/17 09:00 01/23/18 08:59 12/24/17 07:40 40 MG Fluconazole (Consult) 1 ea UD PRN N/A 12/24/17 05:00 01/23/18 04:59 Tamsulosin HCl (Flomax Cap) 0.4 mg HS PO 12/24/17 21:00 01/23/18 20:59 Fluconazole/ Sodium Chloride 100 mg/Prmx 50 ml @ 100 mls/hr Q24H IV 12/24/17 23:00 01/03/18 22:59 Family History Patient reports no known family medical history. Patient could not remember much detail but denied any family history of chronic kidney disease or end-stage renal disease. Social History Smoking Status: Never Smoker Smokeless Tobacco Use: No Alcohol Use: none Drug Use: none Marital Status: Occupation: employed Review of Systems A complete review of systems was performed. Pertinent positives are noted above. All other systems are negative. Physical Exam Date Time Temp Pulse Resp B/P (MAP) Pulse Ox O2 Delivery O2 Flow Rate FiO2 12/24/17 08:00 36.9 86 20 103/52 (69) 91 Room Air 12/24/17 08:00 Room Air 12/24/17 05:20 99/51 (67) 12/24/17 04:00 Room Air 12/24/17 03:31 37.0 86 19 90/50 (63) 91 Nasal Cannula 12/24/17 01:17 36.7 86 16 117/60 98 Room Air 12/24/17 00:19 80 20 143/68 98 Room Air 12/23/17 23:01 90 12/23/17 22:59 90 16 125/61 95 Room Air 12/23/17 20:49 36.9 87 20 127/67 93 Room Air GENERAL: Elderly male, AAA x 3, ill-appearing, lethargic, falls asleep easily. HEENT: Atraumatic, normocephalic. NECK: Supple, no JVD, no carotid bruit appreciated. ENT: No sinus tenderness MOUTH and THROAT: dry oral mucosa, no oral ulcer or pharyngeal erythema RESPIRATORY: Normal breathing efforts, no accessory muscle use, clear to auscultation bilaterally, no wheezes or rales. CARDIOVASCULAR: S1, S2 normal, rate rhythm regular. ABDOMEN: Soft, nontender, positive bowel sound. MUSCULOSKELETAL: No CVA tenderness. No joint swelling, erythema or tenderness. Normal range of motion. SKIN: No skin rash EXTREMITY: No lower extremity edema. Tremor in hands. NEURO: No gross focal neurological deficit, speech fluent. PSYCHIATRY: Normal mood and judgment Laboratory Results Last 24 Hours Test 12/23/17 21:40 12/23/17 21:50 12/23/17 23:30 12/24/17 05:26 Influenza Type A Antigen Neg for Influ A Influenza Type B Antigen Neg for Influ B White Blood Count 5.24 K/uL 4.93 K/uL Red Blood Count 3.93 M/uL 3.59 M/uL Hemoglobin 11.7 g/dL 10.8 g/dL Hematocrit 33.6 % 30.9 % Mean Corpuscular Volume 85.5 fL 86.1 fL Mean Corpuscular Hemoglobin 29.8 pg 30.1 pg Mean Corpuscular Hemoglobin Concent 34.8 g/dl 35.0 g/dl Platelet Count 46 K/uL 41 K/uL Mean Platelet Volume 11.8 fL 10.9 fL Neutrophils (%) (Auto) 80.1 % 83.4 % Lymphocytes (%) (Auto) 13.2 % 12.2 % Monocytes (%) (Auto) 4.8 % 3.0 % Eosinophils (%) (Auto) 1.5 % 1.0 % Basophils (%) (Auto) 0.2 % 0.2 % Neutrophils # (Auto) 4.20 K/uL 4.11 K/uL Lymphocytes # (Auto) 0.69 K/uL 0.60 K/uL Monocytes # (Auto) 0.25 K/uL 0.15 K/uL Eosinophils # (Auto) 0.08 K/uL 0.05 K/uL Basophils # (Auto) 0.01 K/uL 0.01 K/uL RDW Standard Deviation 45.3 fL 46.0 fL RDW Coefficient of Variation 14.5 % 14.5 % Immature Granulocyte % (Auto) 0.2 % 0.2 % Immature Granulocyte # (Auto) 0.01 K/uL 0.01 K/uL Nucleated RBC Absolute Count (auto) 0.00 K/uL Nucleated Red Blood Cells % 0.0 % Dohle Bodies 1+ 2+ Platelet Estimate SIGNIFIC DECREASED Erythrocyte Sedimentation Rate > 90 mm/hr Prothrombin Time 10.4 SECONDS Prothromb Time International Ratio 1.0 Activated Partial Thromboplast Time 29.4 SECONDS Partial Thromboplastin Ratio 1.1 Sodium Level 133 mmol/L 136 mmol/L Potassium Level 5.2 mmol/L 4.5 mmol/L Chloride Level 99 mmol/L 102 mmol/L Carbon Dioxide Level 18 mmol/L 16 mmol/L Anion Gap 16.0 mmol/L 17.0 mmol/L Blood Urea Nitrogen 168 mg/dl 153 mg/dl Creatinine 10.70 mg/dl 10.40 mg/dl Est Creatinine Clear Calc Drug Dose 6.8 ml/min 7.0 ml/min Estimated GFR () 4.8 5.0 Estimated GFR (Non- 4.2 4.3 BUN/Creatinine Ratio 15.8 14.8 Random Glucose 84 mg/dl 76 mg/dl Lactic Acid Level 0.9 mmol/L Calcium Level 9.2 mg/dl 8.4 mg/dl Magnesium Level 1.9 mg/dl Total Bilirubin 1.1 mg/dl 0.8 mg/dl Aspartate Amino Transf (AST/SGOT) 27 U/L 25 U/L Alanine Aminotransferase (ALT/SGPT) 23 U/L 21 U/L Alkaline Phosphatase 171 U/L 146 U/L Total Creatine Kinase 19 U/L Troponin I < 0.015 ng/ml C-Reactive Protein 27.30 mg/dl Total Protein 6.7 gm/dl 5.7 gm/dl Albumin 2.4 gm/dl 1.9 gm/dl Globulin 4.3 gm/dl 3.8 gm/dl Albumin/Globulin Ratio 0.6 0.5 Thyroid Stimulating Hormone (TSH) 1.630 uIu/ml Lyme Disease IgG Antibody NEG Lyme Disease IgM Antibody NEG Monoscreen NEG Urine Color DK YELLOW Urine Appearance CLOUDY Urine pH 5.0 Urine Specific [place] 1.023 Urine Protein TRACE Urine Glucose (UA) NEG Urine Ketones TRACE Urine Occult Blood NEG Urine Nitrite NEG Urine Bilirubin NEG Urine Urobilinogen NEG Urine Leukocyte Esterase NEG Urine WBC (Auto) 1-5 /hpf Urine RBC (Auto) 0-4 /hpf Urine Hyaline Casts (Auto) 5-10 /lpf Urine Epithelial Cells (Auto) >30 /lpf Urine Bacteria (Auto) NEG Urine Crystals See comments Urine Pathogenic Casts 0-3 GRANULAR CASTS /lpf Urine Yeast (Auto) Toxic Granulation 1+ Echinocytes 1+ Estimated Average Glucose 108 mg/dl Hemoglobin A1c 5.4 % Test 12/24/17 07:31 Prostate Specific Antigen 5.900 ng/ml Anti-Streptolysin O Antibody Screen NEG IU/ml Impression (1) GRISELDA (acute kidney injury) (2) Anemia (3) Thrombocytopenia (4) Hyperkalemia (5) Metabolic acidosis Isaak Is a 77-year-old gentlemen the with history of hypertension, gout and chronic NSAID use admitted to the hospital with 1 week history of fatigue, feeling unwell, decreased p.o. intake and oliguria. On admission he was found to be in acute kidney injury, creatinine was 10.8, BUN 163 with prior creatinine from 2015 1.5. He also had hyperkalemia and metabolic acidosis. On admission he was found to be volume depleted, started with fluid resuscitation, so far received at least 3 liters of normal saline. He remain oligo anuric. There has not been any change in renal function or electrolyte abnormality. Has history of chronic NSAID use for many years. His clearly uremic with significantly elevated BUN and creatinine. Has history of hypertension seems to be well controlled at home he was on lisinopril 20 milligram daily only. Was on allopurinol for gout. No history of diabetes or coronary artery disease. Unclear etiology for GRISELDA, differentials include ATN, NSAID induced nephropathy , progressive loss of renal function from chronic bladder outlet obstruction. Unlikely acute GN. Recommendations --Consulted vascular surgery for urgent placement tunneled dialysis catheter to start on dialysis to improve uremic symptom and electrolyte abnormality. Plan for 2 hours dialysis this afternoon with low blood flow --place garcia catheter and monitor intake and output --will discontinue IV fluid when start on dialysis --check PTH, iron study, phosphate --continue to hold lisinopril, avoid other nephrotoxic medications --dose medications for GFR less than 10 --offered to explain patient's current clinical condition to his and other family members but patient would like to take care of that on his own Thank you for allowing me to participate in your patient's care. It was a pleasure to see Isaak
--- NOTE | 2017-12-24 11:50 | Progress Note ---
Progress Note Date of Service Dec 24, 2017. Progress Note ID Consult Dictated #[id number] A/P: 1. Elevated Inflammatory markers -Doubt related to infection, but will continue abx for 1-2 days pending cultures -thank you
--- NOTE | 2017-12-24 11:55 | INFECT. DISEASE CONSULTATION ---
DATE OF CONSULTATION: 12/24/2017 HISTORY OF PRESENT ILLNESS: This is a 77-year-old gentleman with a history of gout and hypertension who was admitted to the hospital with malaise and general fatigue for the past week. He was seen in an urgent care center and had a negative strep. However, his symptoms did not resolve and he represented and was placed on a course of Augmentin and doxycycline. He did not have any improving symptoms and therefore came to the Emergency Room. In the ER, he was found to have an elevated creatinine of 10. He denies any history of kidney disease. He also was hyperkalemic. A CAT scan of the abdomen and pelvis showed renal cyst and an enlarged prostate with likely bladder outlet obstruction. A Ahn was attempted to be placed prior to my examination, but could not be passed. He did have a flu swab, a Lyme titer and an ASO titer, all of which were negative. His PSA is elevated at 5.9. His UA was negative. His sed rate and CRP were elevated. Therefore, infectious diseases was consulted. He was started empirically on Rocephin and remains on this. He denies any fevers currently. He denies any cough, shortness of breath, chest pain, nausea, vomiting or diarrhea. He denies any urinary symptoms at home and states he was able to urinate without difficulty. He denies any hematuria. He states he did have a Ahn only once before, but he has not had any urology followup. He does not have a leukocytosis. Urine and blood cultures are pending. His remaining review of systems is unremarkable. PAST MEDICAL AND SURGICAL HISTORY: Significant for hypertension, gout, GERD and hernia repair. FAMILY HISTORY: Noncontributory. SOCIAL HISTORY: Negative for tobacco use, alcohol use or drug use. ALLERGIES: He has no known drug allergies. CURRENT MEDICATIONS: Include Rocephin, fluconazole, Hytrin, Flomax, Caltrate, multivitamins, Protonix, Mycelex, Dilaudid, morphine and Tylenol. PHYSICAL EXAMINATION: VITAL SIGNS: He is afebrile, pulse 86, respiratory rate is 20, blood pressure is 103/52 and oxygen saturation is 91%-98% on room air. GENERAL: He is awake, alert and oriented x3. He is in no acute distress. HEENT: Mucous membranes are moist. Extraocular muscles are intact. HEART: Regular. LUNGS: Clear. ABDOMEN: Soft, nontender, and nondistended. There is no lower extremity edema. SKIN: Without rash. LABORATORY STUDIES: CBC today reveals a white blood cell count of 4.9, hemoglobin 10.8 and platelets 141. Chemistry panel reveals a sodium of 136, potassium 4.5, chloride 102, bicarbonate 16, BUN 153, creatinine is 10.4, glucose is 108. LFTs are within normal limits. TSH is normal. CRP was elevated at 27. UA is negative. Serologies are as above. Micro is pending. IMAGING: As above. ASSESSMENT AND PLAN: Elevated inflammatory markers. I do not see any infectious etiology at this time; however, he can be continued on antibiotics for an additional 24 hours pending the results of his blood and urine cultures.
[2017-12-24 12:00] LABS: HEP C IGG 13 YRS+OLDER_RFLX NEG (NEG)
[2017-12-24 12:35] LABS: PHOSPHORUS 4.7 mg/dl (2.5-4.9)
--- NOTE | 2017-12-24 12:38 | Surgery Consultation ---
Consultation Date of Service Dec 24, 2017. (oSnja Church, ANA) Chief Complaint GRISELDA, need permcath (Sonja Church PA-C) History of Present Illness The patient is a 77 year old male with PMH of gout and HTN, admitted d/t severe generalized illness and GRISELDA noted on labs, seen in consultation today for TDC insertion for HD. Currently undergoing workup for viral and bacterial etiologies. Pt somewhat lethargic today, but does rouse easily to voice. Denies prior HD, fever, chills, chest pain, SOB, abd pain, N/V, rest pain, claudication, other complaints. (Sonja Church, ANA) Vitals Vital Signs Past 12 Hours Date Time Temp Pulse Resp B/P (MAP) Pulse Ox O2 Delivery O2 Flow Rate FiO2 12/24/17 12:00 Room Air 12/24/17 12:00 36.9 86 20 107/59 (75) 91 Room Air 12/24/17 08:00 36.9 86 20 103/52 (69) 91 Room Air 12/24/17 08:00 Room Air 12/24/17 05:20 99/51 (67) 12/24/17 04:00 Room Air 12/24/17 03:31 37.0 86 19 90/50 (63) 91 Nasal Cannula 12/24/17 01:17 36.7 86 16 117/60 98 Room Air (Sonja Church, ANA) Allergies Coded Allergies: No Known Allergies (Verified , 11/30/15) Home Medications Scheduled Allopurinol (Allopurinol), 300 MG PO QAM Aspirin (Aspirin Chewable), 81 MG PO QAM Calcium Carbonate-Cholecalcife (Calcium 500-100 mg-Unit), 1 TAB PO QAM Krill Oil (Krill Oil), 1 CAP DAILY Lisinopril (Zestril), 20 MG PO DAILY Multiple Vitamins W/ Minerals (Centrum Silver), 1 TAB PO QAM Naproxen (Aleve), 440 MG PO prn ud Omeprazole (Prilosec), 20 MG PO QAM Terazosin Hcl (Hytrin), 5 MG PO HS Problem List Medical Problems: (1) GRISELDA (acute kidney injury) (2) Anemia (3) Hyperkalemia (4) Metabolic acidosis (5) No Known Active Medical Problems (Sonja Church, ANA) Surgical / Medical History Hx Cardiac Surgery: No Hx Abdominal Surgery: Yes (UMBILICAL HERNIA REPAIR) Hx Cancer Surgery: No Hx Thoracic Surgery: No Hx Orthopedic: Yes (LEFT LEG RECONSTRUCTION FROM FALL, LEFT ANKLE FUSION, LEFT ARM ORIF) Hx Urinary Tract Surgery: No Past Medical/Surgical History: Hypertension (Sonja Church PA-C) Family History Patient reports no known family medical history. (Sonja Church, ANA) Patient reports no known family medical history. (Harshad Cobian M.D.) Social History Smoking Status: Never Smoker Hx Tobacco Use In Past Year?: No Hx Alcohol Use - Type & Amnt: No Hx Substance Use -Type & Amnt: No (Sonja Church, ANA) Review of Systems Constitutional: + malaise, No chills, No fever Skin: No change in color Eyes: No visual changes ENMT: + sore throat Respiratory: No cough, No MILLER, No hemoptysis, No short of breath Cardiovascular: No chest pain, No palpitations, No syncope, No edema, No intermittent claudication Gastrointestinal: + appetite changes, No abdominal pain, No nausea, No vomiting Musculoskeletal: + joint pain, + muscle pain Neurologic: + weakness, + headache, + lethargy, No dizziness, No numbness, No tingling (Sonja Church, ANA) Physical Exam Constitutional: General Apperance: well-nourished, well-developed Level of Distress: NAD, acutely ill Psychiatric: Mental Status: active & alert, normal mood, normal affect Orientation: oriented except where noted, to time, to place, to person Memory: recent memory normal, remote memory normal Head: normocephalic, atraumatic Eyes: EOM: EOMI ENMT: hearing grossly normal Neck: trachea midline Lungs: Respiratory effort: no dyspnea Auscultation: no wheezing, no rales/crackles, no rhonchi, decreased breath sounds Cardiovascular: Apical Impulse: not displaced Heart Auscultation: RRR, no murmurs, no rubs, no gallops Peripheral Pulses: Pulses: full and equal, in all extremities except if noted Bruits: none appreciated Carotid Pulse: normal on the left, normal on the right Brachial Pulses: normal on the left, normal on the right Radial Pulse: normal on the left, normal on the right Femoral Pulse: normal on the left, normal on the right Posterior Tibialis Pulse: decreased on the left, decreased on the right Dorsalis Pedis Pulse: decreased on the left, decreased on the right Abdomen: Bowel Sounds: normal Inspection & Palpation: soft, non-distended, no tenderness, guarding & rebound Musculoskeletal: normal strength (5/5 throughout), normal tone Extremities: Upper Right: no cyanosis, no edema, no varicosities Upper Left: no cyanosis, no edema, no varicosities Lower Right: no cyanosis, no edema, no varicosities Lower Left: no cyanosis, no edema, no varicosities Neurologic: Cranial Nerves: grossly intact (Sonja Church, PA-C) Assessment and Plan ASSESSMENT and PLAN: GRISELDA thrombocytopenia Pt for TDC insertion today by Dr Cobian. Upon review of labs, significant thrombocytopenia noted with platelet count of 41. Will administer platelets potline monitor to OR in preop area to minimize risk of bleeding. (Sonja Church, PA-C) Patient was seen, examined, and chart reviewed. Agree with exam and treatment plan of the Vascular PA. (Harshad Cobian M.D.)
[2017-12-24] MEDS ORDERED: FENTANYL CITRATE INJ 50 MCG/1 ML 2 ML VIAL ONE (13:06)
[2017-12-24] MEDS ORDERED: MIDAZOLAM HCL 1 MG/ML 2ML VIAL ONE (13:06)
[2017-12-24] MEDS ORDERED: HEPARIN SOD (PORCINE) 5000 UNIT/ML 1 ML VIAL ONE (13:06)
--- NOTE | 2017-12-24 13:20 | Progress Note ---
Progress Note Date of Service Dec 24, 2017. Progress Note Patient for insertion of permcath. I have discussed the risks options and benefits of the procedure with the patient. The patient understands the risks options and benefits and agrees to the procedure.
--- NOTE | 2017-12-24 13:49 | Pre Sedation Assessment ---
Pre Sedation Assessment General Date of Sedation: Dec 24, 2017. Vital Signs Past 12 Hours Date Time Temp Pulse Resp B/P (MAP) Pulse Ox O2 Delivery O2 Flow Rate FiO2 12/24/17 12:00 Room Air 12/24/17 12:00 36.9 86 20 107/59 (75) 91 Room Air 12/24/17 08:00 36.9 86 20 103/52 (69) 91 Room Air 12/24/17 08:00 Room Air 12/24/17 05:20 99/51 (67) 12/24/17 04:00 Room Air 12/24/17 03:31 37.0 86 19 90/50 (63) 91 Nasal Cannula Review Cardiovascular: regular rate, rhythm Lungs: lungs clear Pre-Sedation Airway Assessment Smoking Status: Never Smoker Short Thick Neck: Yes Thyro-mental Distance: > 3 Finger Breadths Oral Cavity: WNL Mallampati Classification: Class IV ASA Classification: Class IV NPO Status Date of Last Intake of Fluids: Dec 24, 2017 Time of Last Intake of Fluids: 08:00 (coffee black) Date of Last Intake of Solids: Dec 23, 2017 Time of Last Intake of Solids: 00:00 Procedure Planning Current Medications Reviewed: Yes Notes The planned sedation has been discussed with the patient. Informed Consent was obtained. I have identified the patient, determined the appropriateness of sedation and have assessed the patient immediately prior to the procedure. All medicine(s) and interventions are by my order.
[2017-12-24] MEDS ORDERED: MIDAZOLAM HCL 1 MG/ML 2ML VIAL IV ONE (14:15)
[2017-12-24] MEDS ORDERED: FENTANYL CITRATE INJ 50 MCG/1 ML 2 ML VIAL IV ONE (14:15)
[2017-12-24] MEDS ORDERED: LIDOCAINE HCL 1% 20 ML VIAL INJ ONE (14:15)
[2017-12-24] MEDS ORDERED: HEPARIN SOD (PORCINE) 5000 UNIT/ML 1 ML VIAL IV ONE (14:27)
--- NOTE | 2017-12-24 14:30 | [facility] Operative Report ---
Operative Report Operative Date Dec 24, 2017. Pre-Operative Diagnosis Acute kidney injury Post-Operative Diagnosis Same Procedure(s) Performed Insertion of right internal jugular vein permcath Usn localization of right internal jugular vein Fluoro for postioning Surgeon Aranza Product Controller Surgeon(s) none Estimated Blood Loss 5cc Findings tip in distal SVC Specimens none Anesthesia Local with sedation Complication(s) None Disposition Indications This is a 77-year-old male with acute kidney injury. He is in need of dialysis. PermCath insertion was recommended. I have discussed the risks options and benefits of the procedure with the patient. The patient understands the risks options and benefits and agrees to the procedure. Description of Procedure Patient was takent to the angio suite and placed in the supine position. The right side of the neck and chest wall were prepped and draped in a sterile manner. Local anesthesia was then administered to the appropriate areas of the neck and chest wall. Ultrasound was then used to locate the right internal jugular vein. The vein compressed easily, had no filing defects, and was patent. The vein was then punctured under direct ultrasound imaging. A guidewire was then passed centrally under fluoroscopic imaging. A stab wound was then made in the anterior chest wall and a 19 cm permcath was passed from the stab wound on the chest wall to the puncture site on the neck. The puncture site was then dilated till the 14Fr peel away sheath was inserted. The permcath was then inserted through the sheath to a central position in the distal superior vena cava. The peel away sheath was then removed. The catheter was then sutured in place using nylon sutures. The puncture was then closed using a 4-0 Vicryl subcuticular suture. Dermabond was used for a dressing on the puncture site. Both ports aspirated and flushed easily and were then packed with heparin. A sterile dressing was applied to the catheter. The patient left the angio suite in good condition and tolerated the procedure well. I attest to the content of the Intraoperative Record and any orders documented therein. Any exceptions are noted below.
--- NOTE | 2017-12-24 14:48 | Post Sedation Assessment ---
Post Sedation Assessment General Date of Sedation Dec 24, 2017. Vital Signs: Vital Signs Past 12 Hours Date Time Temp Pulse Resp B/P (MAP) Pulse Ox O2 Delivery O2 Flow Rate FiO2 12/24/17 14:30 81 18 119/64 95 Room Air 12/24/17 14:25 80 18 99 Mask 4 12/24/17 14:20 80 18 140/66 99 Mask 4 12/24/17 14:10 12/24/17 13:35 36.5 80 20 124/59 90 12/24/17 12:00 Room Air 12/24/17 12:00 36.9 86 20 107/59 (75) 91 Room Air 12/24/17 08:00 36.9 86 20 103/52 (69) 91 Room Air 12/24/17 08:00 Room Air 12/24/17 05:20 99/51 (67) 12/24/17 04:00 Room Air 12/24/17 03:31 37.0 86 19 90/50 (63) 91 Nasal Cannula Post Procedure Recovery Score Activity: (2) Moves 4 extremities * Respiration: (2) Deep breath/cough Circulation: (2) +/-20% PreAnes Value Consciousness: (2) Fully Awake Oxygen Saturation: (1) O2 needed for >90% Post Anesthesia Score: 9 Discharge Sedation Level of Care: Fast Track Phase II Post Sedation Plan On clinical assessment, the patient appears to have tolerated the sedation without complications. Patient is recovering as anticipated. Patient will continue to be monitored by nursing and may be discharged when sedation discharge criteria are met per below protocol. Upon Completions of procedure and additional 15 minutes continue every 5 minute vital signs and the P.A.R. score; then discharge to a Phase I or Fast Track to Phase II per the following guidelines: * Discharge Patient to appropriate Phase II area if PAR is 8 or greater or return to pre- procedure baseline. The post - procedure orders will be as directed. * If PAR score is less than 8 or not return to pre-procedure baseline then patient will follow Phase I monitoring till PAR is reached for Phase II. The Phase I may be done in procedure room or may call to secure a Phase I area. * If naloxone or flumazenil are used for reversal, hold in Phase I for an additional 60 -120 minutes before discharge to Phase II. Please call the Sedation Physician to re-evaluate and complete post-note for discharge to Phase II area. Do NOT discharge from procedure sedation or Phase 1 until post- sedation evaluation note is complete by procedure /sedation MD Sedation Discharge Instructions to be given to the patient at discharge to home.
[2017-12-24] MEDS ORDERED: NURSING DECISION MEDICATION ORDER SCH (15:45)
--- NOTE | 2017-12-24 16:58 | Urology Consultation ---
History General Date of Service: Dec 24, 2017. Chief Complaint: renal failure, large prostate Primary Care Physician: Stefano Powers M.D. Pt seen a urologist before?: No History of Present Illness I am asked by Dr Cramer to evaluate patient for large prostate and renal failure. He has been feeling poorly for one week. he has total body pain. He says every muscle hurts. He has not had any bothersome urinary symptoms. His ct shows an age appropriate prostate and the bladder dose not look inflamed or distended. He has no pelvic lymphadenopathy or sclerotic lesions to suggest an advanced prostate cancer. Similarly his psa is normal (age adjusted). He is in oliguric renal failure. Dialysis is to start today. Imaging Imaging: CT Laboratory Results Past 24 Hours Test 12/23/17 21:40 12/23/17 21:50 12/23/17 23:30 12/24/17 05:26 Range/Units Influenza Type A Antigen Neg for Influ A NEG Influenza Type B Antigen Neg for Influ B NEG White Blood Count 5.24 4.93 4.8-10.8 K/uL Red Blood Count 3.93 3.59 4.7-6.1 M/uL Hemoglobin 11.7 10.8 14.0-18.0 g/dL Hematocrit 33.6 30.9 42-52 % Mean Corpuscular Volume 85.5 86.1 80-100 fL Mean Corpuscular Hemoglobin 29.8 30.1 25-34 pg Mean Corpuscular Hemoglobin Concent 34.8 35.0 32-36 g/dl Platelet Count 46 41 130-400 K/uL Mean Platelet Volume 11.8 10.9 7.4-10.4 fL Neutrophils (%) (Auto) 80.1 83.4 % Lymphocytes (%) (Auto) 13.2 12.2 % Monocytes (%) (Auto) 4.8 3.0 % Eosinophils (%) (Auto) 1.5 1.0 % Basophils (%) (Auto) 0.2 0.2 % Neutrophils # (Auto) 4.20 4.11 1.4-6.5 K/uL Lymphocytes # (Auto) 0.69 0.60 1.2-3.4 K/uL Monocytes # (Auto) 0.25 0.15 0.11-0.59 K/uL Eosinophils # (Auto) 0.08 0.05 0-0.5 K/uL Basophils # (Auto) 0.01 0.01 0-0.2 K/uL RDW Standard Deviation 45.3 46.0 36.4-46.3 fL RDW Coefficient of Variation 14.5 14.5 11.5-14.5 % Immature Granulocyte % (Auto) 0.2 0.2 % Immature Granulocyte # (Auto) 0.01 0.01 0.00-0.02 K/uL Nucleated RBC Absolute Count (auto) 0.00 0-0 K/uL Nucleated Red Blood Cells % 0.0 % Dohle Bodies 1+ 2+ Platelet Estimate SIGNIFIC DECREASED Peripheral Blood Smear Path Consult Erythrocyte Sedimentation Rate > 90 0-14 mm/hr Prothrombin Time 10.4 9.0-12.0 SECONDS Prothromb Time International Ratio 1.0 0.9-1.1 Activated Partial Thromboplast Time 29.4 21.0-31.0 SECONDS Partial Thromboplastin Ratio 1.1 Sodium Level 133 136 136-145 mmol/L Potassium Level 5.2 4.5 3.5-5.1 mmol/L Chloride Level 99 102 98-107 mmol/L Carbon Dioxide Level 18 16 21-32 mmol/L Anion Gap 16.0 17.0 3-11 mmol/L Blood Urea Nitrogen 168 153 7-18 mg/dl Creatinine 10.70 10.40 0.60-1.40 mg/dl Est Creatinine Clear Calc Drug Dose 6.8 7.0 ml/min Estimated GFR () 4.8 5.0 Estimated GFR (Non- 4.2 4.3 BUN/Creatinine Ratio 15.8 14.8 10-20 Random Glucose 84 76 70-99 mg/dl Lactic Acid Level 0.9 0.4-2.0 mmol/L Calcium Level 9.2 8.4 8.5-10.1 mg/dl Magnesium Level 1.9 1.8-2.4 mg/dl Total Bilirubin 1.1 0.8 0.2-1 mg/dl Aspartate Amino Transf (AST/SGOT) 27 25 15-37 U/L Alanine Aminotransferase (ALT/SGPT) 23 21 12-78 U/L Alkaline Phosphatase 171 146 45-117 U/L Total Creatine Kinase 19 39-308 U/L Troponin I < 0.015 0-0.045 ng/ml C-Reactive Protein 27.30 0-0.29 mg/dl Total Protein 6.7 5.7 6.4-8.2 gm/dl Albumin 2.4 1.9 3.4-5.0 gm/dl Globulin 4.3 3.8 2.5-4.0 gm/dl Albumin/Globulin Ratio 0.6 0.5 0.9-2 Thyroid Stimulating Hormone (TSH) 1.630 0.300-4.500 uIu/ml Lyme Disease IgG Antibody NEG NEG Lyme Disease IgM Antibody NEG NEG Monoscreen NEG NEG Urine Color DK YELLOW Urine Appearance CLOUDY CLEAR Urine pH 5.0 4.5-7.5 Urine Specific [place] 1.023 1.000-1.030 Urine Protein TRACE NEG Urine Glucose (UA) NEG NEG Urine Ketones TRACE NEG Urine Occult Blood NEG NEG Urine Nitrite NEG NEG Urine Bilirubin NEG NEG Urine Urobilinogen NEG NEG Urine Leukocyte Esterase NEG NEG Urine WBC (Auto) 1-5 0-5 /hpf Urine RBC (Auto) 0-4 0-4 /hpf Urine Hyaline Casts (Auto) 5-10 0-5 /lpf Urine Epithelial Cells (Auto) >30 0-5 /lpf Urine Bacteria (Auto) NEG NEG Urine Crystals See comments NONE PRSENT Urine Pathogenic Casts 0-3 GRANULAR CASTS 0 /lpf Urine Yeast (Auto) NONE PRSENT Toxic Granulation 1+ Echinocytes 1+ Estimated Average Glucose 108 mg/dl Hemoglobin A1c 5.4 4.5-5.6 % Test 12/24/17 07:31 12/24/17 10:15 12/24/17 11:43 12/24/17 16:49 Range/Units Prostate Specific Antigen 5.900 0.000-4.000 ng/ml Anti-Streptolysin O Antibody Screen NEG <200 IU IU/ml Hepatitis B Surface Antigen NEG NEG Hepatitis C Antibody NEG NEG Phosphorus Level 4.7 2.5-4.9 mg/dl Magnesium Level 1.9 1.8-2.4 mg/dl Iron Level 12 35-175 mcg/dl Total Iron Binding Capacity 155 250-450 mcg/dl Transferrin 133 200-360 mg/dl Transferrin % Saturation 6 20-50 % Ferritin 563.3 8.0-388.0 ng/ml 25-Hydroxy Vitamin D Total 31.3 30-100 ng/ml Parathyroid Hormone (Intact) 84.9 18.4-80.1 pg/mL Hepatitis B Surface Antibody NEG Microbiology Results 12/23/17 Blood Culture, Received Pending 12/23/17 Blood Culture, Received Pending 12/23/17 Urine Culture, Received Pending Labs were reviewed and are within normal limits unless listed below. Labs are available in the chart and at [facility] Problem List Medical Problems: (1) Acute renal failure Status: Acute (2) Dehydration Status: Acute (3) Rash Status: Acute (4) Thrombocytopenia Status: Acute Past History gout, hypertension Family History Patient reports no known family medical history. not contributory at his age Social History Hx Tobacco Use In Past Year?: No Smoking: non-smoker Alcohol: never Marital status: Housing status: lives with family Occupation status: employed History of MDRO No Allergies Coded Allergies: No Known Allergies (Verified , 11/30/15) Medications Home Medications: Home Meds and Scripts Medications Dose Route/Sig Max Daily Dose Days Date Category Aleve (Naproxen) 220 Mg Tab 440 Mg PO PRN UD 12/23/17 Reported Krill Oil 1 Cap Cap 1 Cap DAILY 12/23/17 Reported Zestril (Lisinopril) 20 Mg Tab 20 Mg PO DAILY 12/23/17 Reported Calcium 500-100 mg-Unit (Calcium Carbonate-Cholecalcife) 1 Chw Chw 1 Tab PO QAM 11/09/15 Reported Centrum Silver (Multiple Vitamins W/ Minerals) 1 Chw Chw 1 Tab PO QAM 11/09/15 Reported Prilosec (Omeprazole) 20 Mg Capcr 20 Mg PO QAM 11/09/15 Reported Aspirin Chewable (Aspirin) 81 Mg Chew 81 Mg PO QAM 11/09/15 Reported Hytrin (Terazosin Hcl) 5 Mg Cap 5 Mg PO HS 04/28/15 Reported Allopurinol 300 Mg Tab 300 Mg PO QAM 04/28/15 Reported Inpatient Medications: Current Inpatient Medications Medications (Trade) Dose Ordered Sig/Nahomy Route Start Time Stop Time Status Last Admin Dose Admin Acetaminophen (Tylenol Tab) 650 mg Q4H PRN PO 12/23/17 23:45 01/22/18 23:44 Morphine Sulfate (MoRPHine SULFATE INJ) 2 mg Q2H PRN IV 12/24/17 00:30 01/07/18 00:29 12/24/17 00:31 2 MG Morphine Sulfate (MoRPHine SULFATE INJ) 4 mg Q2H PRN IV 12/24/17 00:30 01/07/18 00:29 Clotrimazole (Mycelex 10MG Itzel) 1 itzel [id number] SUMAN 12/24/17 07:00 01/03/18 06:59 12/24/17 16:34 1 ITZEL Ceftriaxone Sodium 2000 mg/ Dextrose 70 ml @ 100 mls/hr Q24H IV 12/24/17 23:00 12/24/17 23:41 Hydromorphone HCl (Dilaudid Inj) 1 mg Q3H PRN IV 12/24/17 01:45 01/07/18 01:44 12/24/17 10:51 1 MG Terazosin HCl (Hytrin Cap) 5 mg HS PO 12/24/17 21:00 01/23/18 20:59 Calcium/Vitamin D (Caltrate Plus Tab) 1 tab QAM PO 12/24/17 09:00 01/23/18 08:59 12/24/17 07:40 1 TAB Multivitamins/ Minerals (Multivitamin W/ Minerals Tab) 1 tab QAM PO 12/24/17 09:00 01/23/18 08:59 12/24/17 07:40 1 TAB Pantoprazole Sodium (Protonix Tab) 40 mg QAM PO 12/24/17 09:00 01/23/18 08:59 12/24/17 07:40 40 MG Fluconazole (Consult) 1 ea UD PRN N/A 12/24/17 05:00 01/23/18 04:59 Tamsulosin HCl (Flomax Cap) 0.4 mg HS PO 12/24/17 21:00 01/23/18 20:59 Fluconazole/ Sodium Chloride 100 mg/Prmx 50 ml @ 100 mls/hr Q24H IV 12/24/17 23:00 01/03/18 22:59 Review of Systems Review of Systems Constitutional: + fever, + chills, + frequent headaches Endocrine: + tired/sluggish Gastrointestinal: + abdominal pain, + diarrhea, No nausea, No vomiting, No constipation Cardiovascular: No chest pain, No palpitations, No swelling ankles/feet Respiratory: No shortness of breath, No chronic cough Musculoskeletal: + joint pain, + neck pain, + back pain Male : + nocturia more than once/night, No frequent urination, No painful urination, No urinary retention, No blood in urine, No infections, No kidney stones Physical Exam Vital Signs: Vital Signs Past 12 Hours Date Time Temp Pulse Resp B/P (MAP) Pulse Ox O2 Delivery O2 Flow Rate FiO2 12/24/17 15:11 36.9 78 16 123/65 (84) 95 Nasal Cannula 2.0 12/24/17 14:45 92 Nasal Cannula 2 12/24/17 14:40 92 Nasal Cannula 2 12/24/17 14:35 92 Nasal Cannula 2 12/24/17 14:35 81 18 139/57 88 Room Air 12/24/17 14:30 81 18 119/64 95 Room Air 12/24/17 14:25 80 18 99 Mask 4 12/24/17 14:20 80 18 140/66 99 Mask 4 12/24/17 14:10 12/24/17 13:35 36.5 80 20 124/59 90 12/24/17 12:00 Room Air 12/24/17 12:00 36.9 86 20 107/59 (75) 91 Room Air 12/24/17 08:00 36.9 86 20 103/52 (69) 91 Room Air 12/24/17 08:00 Room Air 12/24/17 05:20 99/51 (67) Physical Exam: General Appearance: WD/WN, + moderate distress, + thin Eyes: bilateral eyes normal inspection ENT: hearing grossly normal Neck: no adenopathy, no JVD, trachea midline Respiratory/Chest: no respiratory distress, no accessory muscle use Gastrointestinal: Abdomen: normal abdomen Bladder: normal bladder Renal: normal renal Hernia: absent hernia Liver: normal liver Spleen: normal spleen Genitourinary - Male: Penis: normal penis, circumcised Urethral Meatus: normal urethral meatus Testes: normal testes Extremities: non-tender, normal inspection, no pedal edema, no calf tenderness , normal capillary refill Neurologic/Psychiatric: alert, normal mood/affect, oriented x 3 Skin: normal color, warm/dry, no rash Lymphatic: no adenopathy Assessment & Plan Assessment & Plan renal failure of unknown origin I see no evidence on ct or bladder scan to suggest urinary retention is the cause I recommend avoiding a garcia catheter as patient is able to void and so I's and O's can be monitored by voiding and bladder scan. A garcia was attempted earlier today and was aborted as patient found it too painful.
[2017-12-24] MEDS: TAMSULOSIN HCL 0.4 MG CAP PO SCH (20:39)
[2017-12-24] MEDS ORDERED: CEFTRIAXONE SOD INJ 2,000 MG in DEXTROSE 5% 50ML 50 ML IV SCH (23:00)
[2017-12-24] MEDS: FLUCONAZOLE 100MG / NSS IV SCH (23:37)
[2017-12-25] VITALS (20 sets, daily range): BP systolic 119–150; BP diastolic 63–89; PULSE 68–81; TEMP 36.9–37.2; O2SAT 92–94
[2017-12-25 05:32] LABS: HEPATITIS A IGM TC 51813E NON-REACTIVE (NON-REACTIVE); HEPATITIS B CORE IGM TC51854R NON-REACTIVE (NON-REACTIVE)
[2017-12-25 05:49] LABS: HEMOGLOBIN 10.1 g/dL (14.0-18.0); MEAN CELL VOLUME 85.7 fL (80-100); MEAN CORPUSCULAR HEMOGLOBIN 28.9 pg (25-34); MEAN CORPUSCULAR HGB CONC 33.7 g/dl (32-36); MEAN PLATELET VOLUME 11.3 fL (7.4-10.4); PLATELET COUNT 73 K/uL (130-400); RED CELL DISTRIBUTION WIDTH CV 14.8 % (11.5-14.5); RED CELL DISTRIBUTION WIDTH SD 46.5 fL (36.4-46.3); WHITE BLOOD COUNT 6.98 K/uL (4.8-10.8)
[2017-12-25 06:29] LABS: CALCIUM 7.5 mg/dl (8.5-10.1); CREATININE 8.87 mg/dl (0.60-1.40)
--- NOTE | 2017-12-25 06:36 | DIAGNOSTIC IMAGING REPORT ---
(RENAL)RETROPERITON COMP HISTORY: Renal insufficiency ARF, ?CKD COMPARISON: None. FINDINGS: Right kidney: Maximum dimension 12.3 cm. No evidence for hydronephrosis. 3 cm upper pole cyst. Normal corticomedullary differentiation and cortical thickness. Left kidney: Maximum dimension 10.9 cm. No evidence for hydronephrosis. 1.2 cm lower pole cyst. Normal corticomedullary differentiation and cortical thickness. Bladder: No bladder wall thickening. The bilateral ureteral jets were identified. IMPRESSION: 1. No evidence for hydronephrosis. 2. Bilateral renal cysts. 3. note is made of enlarged spleen with a maximum linear dimension of 16 cm. The above report was generated using voice recognition software. It may contain grammatical, syntax or spelling errors. Electronically signed by: Bang Olivier M.D. 12/25/2017 6:35 AM Dictated Date/Time: 12/25/2017 6:33 AM
[2017-12-25 06:52] LABS: BASO % 0.1 %; BASO ABS # 0.01 K/uL (0-0.2); EOS % 0.9 %; EOS ABS # 0.06 K/uL (0-0.5); IG# 0.06 K/uL (0.00-0.02); LYMPH % 8.9 %; LYMPH ABS # 0.62 K/uL (1.2-3.4); MONO % 5.6 %; MONO ABS # 0.39 K/uL (0.11-0.59); NEUT % 83.6 %; NEUT ABS # 5.84 K/uL (1.4-6.5)
--- NOTE | 2017-12-25 06:58 | Family Medicine Progress Note ---
Progress Note Date of Service Dec 25, 2017. Subjective Pt evaluation today including: conversation w/ patient, physical exam, chart review, lab review, review of studies, conversation w/ institutional nutrition consultant, review of inpatient medication list Patient states that he had an uneventful night. He states that his aching has improved somewhat since dialysis yesterday. He did have have a bowel of oatmeal this AM, but is feeling extremely nauseous since. He otherwise denies fevers/ chills, headaches, CP, palpitations, dyspnea, abdominal pain, lower extremity swelling or rashes. He denies issues with ambulation. He is voiding and stooling appropriately. ROS is unremarkable except as noted above. Objective Vital Signs Date Time Temp Pulse Resp B/P (MAP) Pulse Ox O2 Delivery O2 Flow Rate FiO2 12/25/17 04:00 Nasal Cannula 2.0 12/25/17 03:22 37.0 78 16 133/63 (86) 92 Nasal Cannula 2.0 12/25/17 00:00 Nasal Cannula 2.0 12/24/17 23:29 36.9 84 18 112/57 (75) 93 Nasal Cannula 2.0 12/24/17 21:30 36.9 78 123/67 (85) 12/24/17 20:00 Nasal Cannula 2.0 12/24/17 20:00 36.9 86 20 133/67 (89) 96 Nasal Cannula 2.0 12/24/17 18:45 79 112/65 12/24/17 18:30 75 108/60 12/24/17 18:15 77 106/64 12/24/17 17:45 75 99/67 12/24/17 17:30 72 109/60 12/24/17 17:23 37.0 70 127/71 (89) 12/24/17 17:15 72 120/63 12/24/17 17:00 72 134/63 12/24/17 16:55 72 12/24/17 16:30 7 18 127/71 (89) 96 Nasal Cannula 2.0 12/24/17 16:15 77 18 127/65 (85) 96 Nasal Cannula 2.0 12/24/17 16:00 Nasal Cannula 2.0 12/24/17 16:00 78 18 132/67 (88) 96 Nasal Cannula 2.0 12/24/17 15:45 77 18 123/65 (84) 95 Nasal Cannula 2.0 12/24/17 15:30 78 18 132/64 (86) 95 Nasal Cannula 2.0 12/24/17 15:11 36.9 78 16 123/65 (84) 95 Nasal Cannula 2.0 12/24/17 14:45 92 Nasal Cannula 2 12/24/17 14:40 92 Nasal Cannula 2 12/24/17 14:35 92 Nasal Cannula 2 12/24/17 14:35 81 18 139/57 88 Room Air 12/24/17 14:30 81 18 119/64 95 Room Air 12/24/17 14:25 80 18 99 Mask 4 12/24/17 14:20 80 18 140/66 99 Mask 4 12/24/17 14:10 12/24/17 13:35 36.5 80 20 124/59 90 12/24/17 12:00 Room Air 12/24/17 12:00 36.9 86 20 107/59 (75) 91 Room Air 12/24/17 08:00 36.9 86 20 103/52 (69) 91 Room Air 12/24/17 08:00 Room Air Physical Exam Notes: General Appearance: WD/WN, no apparent distress, + pertinent finding (More lucid and conversive today) Eyes: normal inspection ENT: hearing grossly normal, + pertinent finding (Dry mucosal membrane) Neck: supple, no adenopathy Respiratory/Chest: lungs clear, normal breath sounds, no respiratory distress, no accessory muscle use Cardiovascular: regular rate, rhythm, no murmur Abdomen: normal bowel sounds, non tender, soft Extremities: non-tender, normal inspection, no pedal edema, no calf tenderness Neurologic/Psychiatric: alert, normal mood/affect, oriented x 3 Skin: normal color, warm/dry, no rash Laboratory Results Results Past 24 Hours Test 12/24/17 20:35 12/25/17 04:59 Range/Units Urine Random Creatinine 199.0 mg/dl Urine Random Sodium 48 mEq/L White Blood Count 6.98 4.8-10.8 K/uL Red Blood Count 3.50 4.7-6.1 M/uL Hemoglobin 10.1 14.0-18.0 g/dL Hematocrit 30.0 42-52 % Mean Corpuscular Volume 85.7 80-100 fL Mean Corpuscular Hemoglobin 28.9 25-34 pg Mean Corpuscular Hemoglobin Concent 33.7 32-36 g/dl Platelet Count 73 130-400 K/uL Mean Platelet Volume 11.3 7.4-10.4 fL Neutrophils (%) (Auto) 83.6 % Lymphocytes (%) (Auto) 8.9 % Monocytes (%) (Auto) 5.6 % Eosinophils (%) (Auto) 0.9 % Basophils (%) (Auto) 0.1 % Neutrophils # (Auto) 5.84 1.4-6.5 K/uL Lymphocytes # (Auto) 0.62 1.2-3.4 K/uL Monocytes # (Auto) 0.39 0.11-0.59 K/uL Eosinophils # (Auto) 0.06 0-0.5 K/uL Basophils # (Auto) 0.01 0-0.2 K/uL RDW Standard Deviation 46.5 36.4-46.3 fL RDW Coefficient of Variation 14.8 11.5-14.5 % Immature Granulocyte % (Auto) 0.9 % Immature Granulocyte # (Auto) 0.06 0.00-0.02 K/uL Dohle Bodies 1+ Erythrocyte Sedimentation Rate 73 0-14 mm/hr Sodium Level 136 136-145 mmol/L Potassium Level 4.0 3.5-5.1 mmol/L Chloride Level 101 98-107 mmol/L Carbon Dioxide Level 22 21-32 mmol/L Anion Gap 13.0 3-11 mmol/L Blood Urea Nitrogen 129 7-18 mg/dl Creatinine 8.87 0.60-1.40 mg/dl Est Creatinine Clear Calc Drug Dose 8.3 ml/min Estimated GFR () 6.1 Estimated GFR (Non- 5.2 BUN/Creatinine Ratio 14.6 10-20 Random Glucose 90 70-99 mg/dl Calcium Level 7.5 8.5-10.1 mg/dl Total Bilirubin 0.6 0.2-1 mg/dl Aspartate Amino Transf (AST/SGOT) 30 15-37 U/L Alanine Aminotransferase (ALT/SGPT) 27 12-78 U/L Alkaline Phosphatase 142 45-117 U/L C-Reactive Protein 23.00 0-0.29 mg/dl Total Protein 6.0 6.4-8.2 gm/dl Albumin 2.0 3.4-5.0 gm/dl Globulin 4.0 2.5-4.0 gm/dl Albumin/Globulin Ratio 0.5 0.9-2 Assessment and Plan 77 yo M presenting to us with severe renal failure possibly secondary to dehydration, viral process or bacterial infection, or an autoimmune process. GRISELDA - secondary to dehydration on CKD III, reflective of prerenal and some degree of post-renal from prostatomegaly. Baseline Cr is approx 1.4-1.5. IVF with NSS initially. Nephrology consulted, rec appreciated. s/p emergent permcath insertion for uremic symptoms. Renal U/S: No hydronephrosis. Bilateral renal cysts. FeNa 1.6% (ATN/intrinsic) - Has dialysis again today - Multiple Myeloma and rheumatology labs ordered and pending - Arranging transfer to [place] for procedure only - renal biopsy to be done by interventional radiology. Feel this could be helpful in diagnosis. Faxed request , will follow up to confirm scheduling ([phone]) - I&O and daily weight - Trend BMP Myalgias/ erythematous rash - ID consulted, recs appreciated. Flu neg, lyme neg. Echo: LV systolic function is normal. Grade I diastolic dysfunction. Borderline left atrial enlargement. Inferior vena cava is mildly dilated. No obvious valvular lesions suggestive of endocarditis - EBV immunoglobulins as well as CMV and parvovirus pending - Continue Rocephin 2 G IV daily, Prelim blood and urine cultures negative Evidence of inflammation - ESR >90, CRP ~27 - Trend ESR/CRP - Rheumatology labs ordered and pending (concern for ANCA disease) Thrombocytopenia - possibly secondary to uremia - Trend CBC - ASA held because of low platelets Hyperkalemia - no concerning changes on EKG, and resolved with IVF - Trend BMP Hyponatremia - resolved with IVF - Trend BMP HTN - Lisinopril held - Continue terazosin Gout - Allopurinol held because of Cr GERD - Omeprazole 20 mg DVT Prophylaxis - SCD - Trend plt and reassess for chemical prophylaxis Resident Physician Supervision Note: I interviewed and examined the patient. Discussed with Dr. Vazquez and agree with findings and plan as documented in the note. Any exceptions or clarifications are listed here: None Documented By: Robin Salas feeling better but still not great d/w dr avery - ?also ddx of NSAID/ACEi? -- we both agree w broad ddx and few diagnostic leads, renal bx should be immensely helpful vitals noted nad breathing unlabored no pallor or icterus ARF - ongoing dialysis due to uremia/acid base issues but feeling better. for biopsy - trying to facilitate w C to do so lesa thrmobocytopenia - improved post transfusion - obviously makes renal bx timing less than ideal, but without clear etiology hard to gauge acuity and need for more specific treatment Resident Tracking Resident Involvement: Resident Care Provided Care Provided: [facility]
[2017-12-25] MEDS: CLOTRIMAZOLE 10 MG TROCHE LOZ SCH ×5 (08:03→22:32)
[2017-12-25] MEDS: CEROVITE ADV FORMULA TAB PO SCH (08:03)
[2017-12-25] MEDS: CALCIUM 600MG + VIT D 400 IU TAB PO SCH (08:03)
[2017-12-25] MEDS: PANTOprazole SOD 40 MG TAB PO SCH (08:04)
[2017-12-25] MEDS ORDERED: ONDANSETRON INJ 2 MG/ML 2 ML VIAL ONE (08:44)
[2017-12-25] MEDS ORDERED: PROMETHAZINE HCL INJ 25 MG/ML 1 ML VIAL IM PRN ×2 (10:00→13:30)
--- NOTE | 2017-12-25 10:05 | Progress Note ---
Subjective Date of Service: Dec 25, 2017. Subjective currently off of abx. s/p permacath. creat 8 today. no fevers overnight. esr improved to 73 today. blood cultures remain negative. Problem List Medical Problems: (1) Acute renal failure Status: Acute (2) Dehydration Status: Acute (3) Rash Status: Acute (4) Thrombocytopenia Status: Acute Objective Vital Signs Date Time Temp Pulse Resp B/P (MAP) Pulse Ox O2 Delivery O2 Flow Rate FiO2 12/25/17 08:15 36.9 81 16 147/67 (93) 92 Room Air 12/25/17 08:14 36.9 80 22 150/71 (97) 93 Nasal Cannula 2.0 12/25/17 08:10 92 Room Air 12/25/17 08:00 Nasal Cannula 2.0 12/25/17 04:00 Nasal Cannula 2.0 12/25/17 03:22 37.0 78 16 133/63 (86) 92 Nasal Cannula 2.0 12/25/17 00:00 Nasal Cannula 2.0 12/24/17 23:29 36.9 84 18 112/57 (75) 93 Nasal Cannula 2.0 12/24/17 21:30 36.9 78 123/67 (85) 12/24/17 20:00 Nasal Cannula 2.0 12/24/17 20:00 36.9 86 20 133/67 (89) 96 Nasal Cannula 2.0 12/24/17 18:45 79 112/65 12/24/17 18:30 75 108/60 12/24/17 18:15 77 106/64 12/24/17 17:45 75 99/67 12/24/17 17:30 72 109/60 12/24/17 17:23 37.0 70 127/71 (89) 12/24/17 17:15 72 120/63 12/24/17 17:00 72 134/63 12/24/17 16:55 72 12/24/17 16:30 7 18 127/71 (89) 96 Nasal Cannula 2.0 12/24/17 16:15 77 18 127/65 (85) 96 Nasal Cannula 2.0 12/24/17 16:00 Nasal Cannula 2.0 12/24/17 16:00 78 18 132/67 (88) 96 Nasal Cannula 2.0 12/24/17 15:45 77 18 123/65 (84) 95 Nasal Cannula 2.0 12/24/17 15:30 78 18 132/64 (86) 95 Nasal Cannula 2.0 12/24/17 15:11 36.9 78 16 123/65 (84) 95 Nasal Cannula 2.0 12/24/17 14:45 92 Nasal Cannula 2 12/24/17 14:40 92 Nasal Cannula 2 12/24/17 14:35 92 Nasal Cannula 2 12/24/17 14:35 81 18 139/57 88 Room Air 12/24/17 14:30 81 18 119/64 95 Room Air 12/24/17 14:25 80 18 99 Mask 4 12/24/17 14:20 80 18 140/66 99 Mask 4 12/24/17 14:10 12/24/17 13:35 36.5 80 20 124/59 90 12/24/17 12:00 Room Air 12/24/17 12:00 36.9 86 20 107/59 (75) 91 Room Air Laboratory Results Item Value Date Time Blood Culture - Preliminary Resulted 12/23/172150 Blood NO GROWTH TO DATE. Blood Culture - Preliminary Resulted 12/23/170 Blood NO GROWTH TO DATE. Last 24 Hours Test 12/24/17 10:15 12/24/17 11:43 12/24/17 16:49 12/24/17 20:35 Hepatitis A IgM Antibody NON-REACTIVE Hepatitis B Surface Antigen NEG Hepatitis B Core IgM Antibody NON-REACTIVE Hepatitis C Antibody NEG Phosphorus Level 4.7 mg/dl Magnesium Level 1.9 mg/dl Iron Level 12 mcg/dl Total Iron Binding Capacity 155 mcg/dl Transferrin 133 mg/dl Transferrin % Saturation 6 % Ferritin 563.3 ng/ml 25-Hydroxy Vitamin D Total 31.3 ng/ml Parathyroid Hormone (Intact) 84.9 pg/mL Hepatitis B Surface Antibody NEG Urine Random Creatinine 199.0 mg/dl Urine Random Sodium 48 mEq/L Test 12/25/17 04:59 White Blood Count 6.98 K/uL Red Blood Count 3.50 M/uL Hemoglobin 10.1 g/dL Hematocrit 30.0 % Mean Corpuscular Volume 85.7 fL Mean Corpuscular Hemoglobin 28.9 pg Mean Corpuscular Hemoglobin Concent 33.7 g/dl Platelet Count 73 K/uL Mean Platelet Volume 11.3 fL Neutrophils (%) (Auto) 83.6 % Lymphocytes (%) (Auto) 8.9 % Monocytes (%) (Auto) 5.6 % Eosinophils (%) (Auto) 0.9 % Basophils (%) (Auto) 0.1 % Neutrophils # (Auto) 5.84 K/uL Lymphocytes # (Auto) 0.62 K/uL Monocytes # (Auto) 0.39 K/uL Eosinophils # (Auto) 0.06 K/uL Basophils # (Auto) 0.01 K/uL RDW Standard Deviation 46.5 fL RDW Coefficient of Variation 14.8 % Immature Granulocyte % (Auto) 0.9 % Immature Granulocyte # (Auto) 0.06 K/uL Dohle Bodies 1+ Erythrocyte Sedimentation Rate 73 mm/hr Sodium Level 136 mmol/L Potassium Level 4.0 mmol/L Chloride Level 101 mmol/L Carbon Dioxide Level 22 mmol/L Anion Gap 13.0 mmol/L Blood Urea Nitrogen 129 mg/dl Creatinine 8.87 mg/dl Est Creatinine Clear Calc Drug Dose 8.3 ml/min Estimated GFR () 6.1 Estimated GFR (Non- 5.2 BUN/Creatinine Ratio 14.6 Random Glucose 90 mg/dl Calcium Level 7.5 mg/dl Total Bilirubin 0.6 mg/dl Aspartate Amino Transf (AST/SGOT) 30 U/L Alanine Aminotransferase (ALT/SGPT) 27 U/L Alkaline Phosphatase 142 U/L C-Reactive Protein 23.00 mg/dl Total Protein 6.0 gm/dl Albumin 2.0 gm/dl Globulin 4.0 gm/dl Albumin/Globulin Ratio 0.5 Assessment and Plan (1) Elevated erythrocyte sedimentation rate Assessment & Plan: suspect non infectious, follow off of abx.
--- NOTE | 2017-12-25 10:07 | Nephrology Progress Note ---
Nephrology Progress Note Date of Service Dec 25, 2017. Chief Complaint Follow-up for acute kidney injury, hyperkalemia and metabolic acidosis. Subjective Isaak Was seen examined in his room this morning. Was sitting in chair and reports feeling slightly better compared to yesterday. Denies any shortness of breath however mention he is having upset in his stomach. Reports normal voiding. Blood pressure has been stable. Electrolyte acceptable this morning. Review of Systems A complete review of systems was performed. Pertinent positives are noted above. All other systems are negative. Vital Signs Last 8 Hrs Date Time Temp Pulse Resp B/P (MAP) Pulse Ox O2 Delivery O2 Flow Rate FiO2 12/25/17 08:15 36.9 81 16 147/67 (93) 92 Room Air 12/25/17 08:14 36.9 80 22 150/71 (97) 93 Nasal Cannula 2.0 12/25/17 08:10 92 Room Air 12/25/17 08:00 Nasal Cannula 2.0 12/25/17 04:00 Nasal Cannula 2.0 12/25/17 03:22 37.0 78 16 133/63 (86) 92 Nasal Cannula 2.0 Last Recorded Weight Weight (Kilograms): 94.000 Physical Exam GENERAL: Elderly male, AAA x 3, ill-appearing, not in any distress. NECK: Supple, no JVD., Rt IJ TDC RESPIRATORY: Normal breathing efforts, no accessory muscle use, clear to auscultation bilaterally, no wheezes or rales. CARDIOVASCULAR: S1, S2 normal, rate rhythm regular. EXTREMITY: No lower extremity edema NEURO: speech fluent. PSYCHIATRY: Normal mood and judgment Family History Patient reports no known family medical history. Patient could not remember much detail but denied any family history of chronic kidney disease or end-stage renal disease. Social History Smokeless Tobacco Use: No Alcohol Use: none Drug Use: none Marital Status: Housing Status: lives with family Occupation: employed Laboratory Results Past 24 Hours 12/25/17 04:59 Red Blood Count 3.50, Mean Corpuscular Volume 85.7, Mean Corpuscular Hemoglobin 28.9, Mean Corpuscular Hemoglobin Concent 33.7, Mean Platelet Volume 11.3, Neutrophils (%) (Auto) 83.6, Lymphocytes (%) (Auto) 8.9, Monocytes (%) (Auto) 5.6, Eosinophils (%) (Auto) 0.9, Basophils (%) (Auto) 0.1, Neutrophils # (Auto) 5.84, Lymphocytes # (Auto) 0.62, Monocytes # (Auto) 0.39, Eosinophils # (Auto) 0.06, Basophils # (Auto) 0.01 12/25/17 04:59 Test 12/24/17 10:15 12/24/17 11:43 12/24/17 16:49 12/24/17 20:35 Hepatitis A IgM Antibody NON-REACTIVE (NON-REACTIVE) Hepatitis B Surface Antigen NEG (NEG) Hepatitis B Core IgM Antibody NON-REACTIVE (NON-REACTIVE) Hepatitis C Antibody NEG (NEG) Phosphorus Level 4.7 mg/dl (2.5-4.9) Magnesium Level 1.9 mg/dl (1.8-2.4) Iron Level 12 mcg/dl (35-175) Total Iron Binding Capacity 155 mcg/dl (250-450) Transferrin 133 mg/dl (200-360) Transferrin % Saturation 6 % (20-50) Ferritin 563.3 ng/ml (8.0-388.0) 25-Hydroxy Vitamin D Total 31.3 ng/ml (30-100) Parathyroid Hormone (Intact) 84.9 pg/mL (18.4-80.1) Hepatitis B Surface Antibody NEG Urine Random Creatinine 199.0 mg/dl Urine Random Sodium 48 mEq/L Test 12/25/17 04:59 White Blood Count 6.98 K/uL (4.8-10.8) Red Blood Count 3.50 M/uL (4.7-6.1) Hemoglobin 10.1 g/dL (14.0-18.0) Hematocrit 30.0 % (42-52) Mean Corpuscular Volume 85.7 fL (80-100) Mean Corpuscular Hemoglobin 28.9 pg (25-34) Mean Corpuscular Hemoglobin Concent 33.7 g/dl (32-36) Platelet Count 73 K/uL (130-400) Mean Platelet Volume 11.3 fL (7.4-10.4) Neutrophils (%) (Auto) 83.6 % Lymphocytes (%) (Auto) 8.9 % Monocytes (%) (Auto) 5.6 % Eosinophils (%) (Auto) 0.9 % Basophils (%) (Auto) 0.1 % Neutrophils # (Auto) 5.84 K/uL (1.4-6.5) Lymphocytes # (Auto) 0.62 K/uL (1.2-3.4) Monocytes # (Auto) 0.39 K/uL (0.11-0.59) Eosinophils # (Auto) 0.06 K/uL (0-0.5) Basophils # (Auto) 0.01 K/uL (0-0.2) RDW Standard Deviation 46.5 fL (36.4-46.3) RDW Coefficient of Variation 14.8 % (11.5-14.5) Immature Granulocyte % (Auto) 0.9 % Immature Granulocyte # (Auto) 0.06 K/uL (0.00-0.02) Dohle Bodies 1+ Erythrocyte Sedimentation Rate 73 mm/hr (0-14) Anion Gap 13.0 mmol/L (3-11) Est Creatinine Clear Calc Drug Dose 8.3 ml/min Estimated GFR () 6.1 Estimated GFR (Non- 5.2 BUN/Creatinine Ratio 14.6 (10-20) Calcium Level 7.5 mg/dl (8.5-10.1) Total Bilirubin 0.6 mg/dl (0.2-1) Aspartate Amino Transf (AST/SGOT) 30 U/L (15-37) Alanine Aminotransferase (ALT/SGPT) 27 U/L (12-78) Alkaline Phosphatase 142 U/L (45-117) C-Reactive Protein 23.00 mg/dl (0-0.29) Total Protein 6.0 gm/dl (6.4-8.2) Albumin 2.0 gm/dl (3.4-5.0) Globulin 4.0 gm/dl (2.5-4.0) Albumin/Globulin Ratio 0.5 (0.9-2) Allergies Coded Allergies: No Known Allergies (Verified , 11/30/15) Medications Current Inpatient Medications Medications (Trade) Dose Ordered Sig/Nahomy Route Start Time Stop Time Status Last Admin Dose Admin Acetaminophen (Tylenol Tab) 650 mg Q4H PRN PO 12/23/17 23:45 01/22/18 23:44 Morphine Sulfate (MoRPHine SULFATE INJ) 2 mg Q2H PRN IV 12/24/17 00:30 01/07/18 00:29 12/24/17 00:31 2 MG Morphine Sulfate (MoRPHine SULFATE INJ) 4 mg Q2H PRN IV 12/24/17 00:30 01/07/18 00:29 Clotrimazole (Mycelex 10MG Itzel) 1 itzel 5XDQ4H SUMAN 12/24/17 07:00 01/03/18 06:59 12/25/17 08:03 1 ITZEL Hydromorphone HCl (Dilaudid Inj) 1 mg Q3H PRN IV 12/24/17 01:45 01/07/18 01:44 12/24/17 20:40 1 MG Terazosin HCl (Hytrin Cap) 5 mg HS PO 12/24/17 21:00 01/23/18 20:59 12/24/17 20:39 5 MG Calcium/Vitamin D (Caltrate Plus Tab) 1 tab QAM PO 12/24/17 09:00 01/23/18 08:59 12/25/17 08:03 1 TAB Multivitamins/ Minerals (Multivitamin W/ Minerals Tab) 1 tab QAM PO 12/24/17 09:00 01/23/18 08:59 12/25/17 08:03 1 TAB Pantoprazole Sodium (Protonix Tab) 40 mg QAM PO 12/24/17 09:00 01/23/18 08:59 12/25/17 08:04 40 MG Fluconazole (Consult) 1 ea UD PRN N/A 12/24/17 05:00 01/23/18 04:59 Tamsulosin HCl (Flomax Cap) 0.4 mg HS PO 12/24/17 21:00 01/23/18 20:59 12/24/17 20:39 0.4 MG Fluconazole/ Sodium Chloride 100 mg/Prmx 50 ml @ 100 mls/hr Q24H IV 12/24/17 23:00 01/03/18 22:59 12/24/17 23:37 100 MLS/HR Promethazine HCl (Phenergan Inj) 25 mg Q6 PRN IM 12/25/17 10:00 01/24/18 09:59 Ondansetron HCl (Zofran Inj) 4 mg Q4H PRN IV 12/25/17 10:00 01/24/18 09:59 UNV Impression (1) GRISELDA (acute kidney injury) (2) Anemia (3) Thrombocytopenia (4) Hyperkalemia (5) Metabolic acidosis Isaak Is a 77-year-old gentlemen the with history of hypertension, gout and chronic NSAID use admitted to the hospital with 1 week history of fatigue, feeling unwell, decreased p.o. intake and oliguria. On admission he was found to be in acute kidney injury, creatinine was 10.8, BUN 163 with prior creatinine from 2015 1.5. He also had hyperkalemia and metabolic acidosis. On admission he was found to be volume depleted, started with fluid resuscitation, so far received at least 3 liters of normal saline. He remain oligo anuric. There has not been any change in renal function or electrolyte abnormality. Has history of chronic NSAID use for many years. His clearly uremic with significantly elevated BUN and creatinine. Has history of hypertension seems to be well controlled at home he was on lisinopril 20 milligram daily only. Was on allopurinol for gout. No history of diabetes or coronary artery disease. Unclear etiology for GRISELDA, differentials include ATN, NSAID induced nephropathy , progressive loss of renal function from chronic bladder outlet obstruction. Unlikely acute GN. Recommendations --plan for 2.5 hours dialysis with low blood flow, aim for 1 liter UF --monitor intake and output --start on Venofer 20 milligram every other day for total 5 dose. --continue to hold lisinopril, avoid other nephrotoxic medications --dose medications for GFR less than 10 --as the diagnosis is not really clear at this point, discussed with the patient about potential need for biopsy for definitive diagnosis, patient is agreeable. Will follow
[2017-12-25] MEDS: TAMSULOSIN HCL 0.4 MG CAP PO SCH (20:05)
[2017-12-25] MEDS: FLUCONAZOLE 100MG / NSS IV SCH (22:32)
[2017-12-26] VITALS (17 sets, daily range): BP systolic 125–163; BP diastolic 67–84; PULSE 59–71; TEMP 36.8–37.4; O2SAT 90–93
[2017-12-26 07:36] LABS: CALCIUM 7.9 mg/dl (8.5-10.1); CREATININE 7.25 mg/dl (0.60-1.40); POTASSIUM 3.9 mmol/L (3.5-5.1)
--- NOTE | 2017-12-26 08:03 | Family Medicine Progress Note ---
Progress Note Date of Service Dec 26, 2017. Subjective Pt evaluation today including: conversation w/ patient, physical exam, chart review, lab review, review of studies, conversation w/ care consultant, review of inpatient medication list Patient states that he had an uneventful night. He states that his aching and nausea has improved. His appetite is improved. He otherwise denies fevers/chills , headaches, CP, palpitations, dyspnea, abdominal pain, lower extremity swelling or rashes. He denies issues with ambulation. He is voiding and stooling appropriately. ROS is unremarkable except as noted above. Objective Vital Signs Date Time Temp Pulse Resp B/P (MAP) Pulse Ox O2 Delivery O2 Flow Rate FiO2 12/26/17 07:54 36.8 66 17 150/77 (101) 91 Room Air 12/26/17 02:00 Room Air 12/25/17 21:54 36.9 80 18 148/89 (108) 92 Room Air 12/25/17 20:57 37.1 80 18 94 12/25/17 20:00 94 Room Air 12/25/17 19:42 37.2 74 17 133/75 (94) 92 Room Air 12/25/17 16:00 94 Room Air 12/25/17 16:00 37.1 80 18 143/68 (93) 94 Room Air 12/25/17 12:08 93 Room Air 12/25/17 12:05 37.0 75 16 119/71 (87) 93 Room Air 12/25/17 12:00 Nasal Cannula 2.0 12/25/17 11:45 70 119/70 12/25/17 11:33 68 124/73 12/25/17 11:15 76 132/75 12/25/17 11:00 70 122/67 12/25/17 10:45 73 131/71 12/25/17 10:32 37.0 76 132/74 (93) 12/25/17 10:30 74 133/70 12/25/17 10:15 74 133/70 12/25/17 10:00 74 135/73 12/25/17 08:15 36.9 81 16 147/67 (93) 92 Room Air 12/25/17 08:14 36.9 80 22 150/71 (97) 93 Nasal Cannula 2.0 12/25/17 08:10 92 Room Air 12/25/17 08:00 Nasal Cannula 2.0 Physical Exam Notes: General Appearance: WD/WN, no apparent distress, + pertinent finding (More lucid and conversive today) Eyes: normal inspection ENT: hearing grossly normal, + pertinent finding (Dry mucosal membrane) Neck: supple, no adenopathy Respiratory/Chest: lungs clear, normal breath sounds, no respiratory distress, no accessory muscle use Cardiovascular: regular rate, rhythm, no murmur Abdomen: normal bowel sounds, non tender, soft Extremities: non-tender, normal inspection, no pedal edema, no calf tenderness Neurologic/Psychiatric: alert, normal mood/affect, oriented x 3 Skin: normal color, warm/dry, no rash Laboratory Results Results Past 24 Hours Test 12/26/17 06:02 Range/Units Sodium Level 137 136-145 mmol/L Potassium Level 3.9 3.5-5.1 mmol/L Chloride Level 102 98-107 mmol/L Carbon Dioxide Level 25 21-32 mmol/L Anion Gap 10.0 3-11 mmol/L Blood Urea Nitrogen 102 7-18 mg/dl Creatinine 7.25 0.60-1.40 mg/dl Est Creatinine Clear Calc Drug Dose 10.1 ml/min Estimated GFR () 7.7 Estimated GFR (Non- 6.7 BUN/Creatinine Ratio 14.2 10-20 Random Glucose 95 70-99 mg/dl Calcium Level 7.9 8.5-10.1 mg/dl Assessment and Plan 77 yo M presenting to us with severe renal failure possibly secondary to dehydration, viral process or bacterial infection, or an autoimmune process. GRISELDA - secondary to dehydration on CKD III, reflective of prerenal and some degree of post-renal from prostatomegaly. Baseline Cr is approx 1.4-1.5. IVF with NSS initially. Nephrology consulted, rec appreciated. s/p emergent permcath insertion for uremic symptoms. Renal U/S: No hydronephrosis. Bilateral renal cysts. FeNa 1.6% (ATN/intrinsic) - Has dialysis again today - Multiple Myeloma and rheumatology labs ordered and pending - Arranging transfer to [facility] for procedure only - renal biopsy to be done by interventional radiology as it is felt this could be helpful in diagnosis and management. After >120min of phone calls and other correspondence, finally scheduled for 9: 00am on 12/29/17. Needs to arrive in [facility] at 7:00am, and will return to [facility] around noon, unless a complication arises from procedure , in which case patient will be admitted to [facility] under Dr. Redmond's service. Contact: Anay [phone] x. [phone] for questions. Coordination re: transport pending from our side. Will need to be NPO prior to procedure, no blood thinners /anticoagulants, send patient with most recent labs (need plt >50 [consider transfusion if necessary], INR <1.5, and most recent Cr) and a CD of all imaging performed in this admission. May be worth sending patient with script for procedure (in case they didn't get the one I faxed over) - I&O and daily weight - Trend BMP Myalgias/ erythematous rash - ID consulted, recs appreciated. Flu neg, lyme neg. Echo: LV systolic function is normal. Grade I diastolic dysfunction. Borderline left atrial enlargement. Inferior vena cava is mildly dilated. No obvious valvular lesions suggestive of endocarditis - EBV immunoglobulins as well as CMV and parvovirus pending - Continue Rocephin 2 G IV daily, Prelim blood and urine cultures negative Evidence of inflammation - ESR >90, CRP ~27 - Trend ESR/CRP - Rheumatology labs ordered and pending (concern for ANCA disease) Thrombocytopenia - possibly secondary to uremia - Trend CBC - ASA held because of low platelets Hyperkalemia and hyponatremia - no concerning changes on EKG, and resolved with IVF - Trend BMP HTN - Lisinopril held - Continue terazosin Gout - Allopurinol held because of Cr GERD - Omeprazole 20 mg DVT Prophylaxis - SCD - Trend plt and reassess for chemical prophylaxis Resident Physician Supervision Note: I interviewed and examined the patient. Discussed with Dr. Vazquez and agree with findings and plan as documented in the note. Any exceptions or clarifications are listed here: None Documented By: Robin Salas pain and nausea better after dialysis trying to facilitate [facility] and return here since the rest of managemetn appears safe/appropriate for this level of care - running into many roadblocks. might be facilitated for friday morning, not clera vitals notd nad breathing unlabored no pallor or icterus ARF - ?etiology - await seriologies, continue HD, sx have improved w HD suggesting acute deterioration was uremia. hopefully bx friday will have to continue to work to facilitate since meeting so many roadblocks, R2's efforts ( and HOURS on the phone) greatly appreciated. Continued [facility] stay due to: other Resident Tracking Resident Involvement: Resident Care Provided Care Provided: Adult Hospital Medicine
[2017-12-26] MEDS: CALCIUM 600MG + VIT D 400 IU TAB PO SCH (08:12)
[2017-12-26] MEDS: PANTOprazole SOD 40 MG TAB PO SCH (08:12)
[2017-12-26] MEDS: CEROVITE ADV FORMULA TAB PO SCH (08:13)
[2017-12-26] MEDS: CLOTRIMAZOLE 10 MG TROCHE LOZ SCH ×5 (08:14→22:34)
--- NOTE | 2017-12-26 14:14 | Nephrology Progress Note ---
Nephrology Progress Note Date of Service Dec 26, 2017. Chief Complaint Follow-up for acute kidney injury, hyperkalemia and metabolic acidosis. Subjective Isaak was seen and examined in his room this morning overall he is feeling a lot better, denies any specific symptom. Abdominal discomfort seems to have resolved appetite improved. Had 2 dialysis treatment tolerated well. Remain oliguric. Review of Systems A complete review of systems was performed. Pertinent positives are noted above. All other systems are negative. Vital Signs Last 8 Hrs Date Time Temp Pulse Resp B/P (MAP) Pulse Ox O2 Delivery O2 Flow Rate FiO2 12/26/17 07:54 36.8 66 17 150/77 (101) 91 Room Air 12/26/17 02:00 Room Air Last Recorded Weight Weight (Kilograms): 93.200 Physical Exam GENERAL: Elderly male , AAA x 3, pleasant, ill -appearing, not in any distress. NECK: Supple, no JVD. RESPIRATORY: Normal breathing efforts, no accessory muscle use, clear to auscultation bilaterally, no wheezes or rales. CARDIOVASCULAR: S1, S2 normal, rate rhythm regular. EXTREMITY: No lower extremity edema NEURO: speech fluent. PSYCHIATRY: Normal mood and judgment Family History Patient reports no known family medical history. Patient could not remember much detail but denied any family history of chronic kidney disease or end-stage renal disease. Social History Smokeless Tobacco Use: No Alcohol Use: none Drug Use: none Marital Status: Housing Status: lives with family Occupation: employed Laboratory Results Past 24 Hours 12/26/17 06:02 Test 12/26/17 06:02 Anion Gap 10.0 mmol/L (3-11) Est Creatinine Clear Calc Drug Dose 10.1 ml/min Estimated GFR () 7.7 Estimated GFR (Non- 6.7 BUN/Creatinine Ratio 14.2 (10-20) Calcium Level 7.9 mg/dl (8.5-10.1) Allergies Coded Allergies: No Known Allergies (Verified , 11/30/15) Medications Current Inpatient Medications Medications (Trade) Dose Ordered Sig/Nahomy Route Start Time Stop Time Status Last Admin Dose Admin Acetaminophen (Tylenol Tab) 650 mg Q4H PRN PO 12/23/17 23:45 01/22/18 23:44 Morphine Sulfate (MoRPHine SULFATE INJ) 2 mg Q2H PRN IV 12/24/17 00:30 01/07/18 00:29 12/24/17 00:31 2 MG Morphine Sulfate (MoRPHine SULFATE INJ) 4 mg Q2H PRN IV 12/24/17 00:30 01/07/18 00:29 Clotrimazole (Mycelex 10MG Itzel) 1 itzel [id number] SUMAN 12/24/17 07:00 01/03/18 06:59 12/26/17 08:14 1 ITZEL Hydromorphone HCl (Dilaudid Inj) 1 mg Q3H PRN IV 12/24/17 01:45 01/07/18 01:44 12/24/17 20:40 1 MG Terazosin HCl (Hytrin Cap) 5 mg HS PO 12/24/17 21:00 01/23/18 20:59 12/25/17 20:05 5 MG Calcium/Vitamin D (Caltrate Plus Tab) 1 tab QAM PO 12/24/17 09:00 01/23/18 08:59 12/26/17 08:12 1 TAB Multivitamins/ Minerals (Multivitamin W/ Minerals Tab) 1 tab QAM PO 12/24/17 09:00 01/23/18 08:59 12/26/17 08:13 1 TAB Pantoprazole Sodium (Protonix Tab) 40 mg QAM PO 12/24/17 09:00 01/23/18 08:59 12/26/17 08:12 40 MG Fluconazole (Consult) 1 ea UD PRN N/A 12/24/17 05:00 01/23/18 04:59 Tamsulosin HCl (Flomax Cap) 0.4 mg HS PO 12/24/17 21:00 01/23/18 20:59 12/25/17 20:05 0.4 MG Fluconazole/ Sodium Chloride 100 mg/Prmx 50 ml @ 100 mls/hr Q24H IV 12/24/17 23:00 01/03/18 22:59 12/25/17 22:32 100 MLS/HR Ondansetron HCl (Zofran Inj) 4 mg Q4H PRN IV 12/25/17 10:00 01/24/18 09:59 Promethazine HCl (Phenergan Inj) 12.5 mg Q6 PRN IM 12/25/17 13:30 01/24/18 09:59 Impression (1) GRISELDA (acute kidney injury) (2) Anemia (3) Thrombocytopenia (4) Hyperkalemia (5) Metabolic acidosis Isaak Is a 77-year-old gentlemen the with history of hypertension, gout and chronic NSAID use admitted to the hospital with 1 week history of fatigue, feeling unwell, decreased p.o. intake and oliguria. On admission he was found to be in acute kidney injury, creatinine was 10.8, BUN 163 with prior creatinine from 2015 1.5. He also had hyperkalemia and metabolic acidosis. On admission he was found to be volume depleted, started with fluid resuscitation, so far received at least 3 liters of normal saline. He remain oligo anuric. There has not been any change in renal function or electrolyte abnormality. Has history of chronic NSAID use for many years. His clearly uremic with significantly elevated BUN and creatinine. Has history of hypertension seems to be well controlled at home he was on lisinopril 20 milligram daily only. Was on allopurinol for gout. No history of diabetes or coronary artery disease. Unclear etiology for GRISELDA, differentials include ATN, NSAID induced nephropathy , progressive loss of renal function from chronic bladder outlet obstruction. Unlikely acute GN. Recommendations --plan for 23 hours dialysis today aim for 1 liter UF --monitor intake and output --continue on Venofer 20 milligram every other day for total 5 dose. --continue to hold lisinopril, avoid other nephrotoxic medications --dose medications for GFR less than 10 --possible transfer to [facility] for renal biopsy Will follow
[2017-12-26] MEDS: FLUCONAZOLE 100 MG TAB PO SCH (20:56)
[2017-12-26] MEDS: TAMSULOSIN HCL 0.4 MG CAP PO SCH (20:56)
[2017-12-26 23:29] LABS: PARVOVIRUS IgM INDEX 0.1 (<0.9)
[2017-12-27] VITALS (22 sets, daily range): BP systolic 127–164; BP diastolic 57–82; PULSE 58–84; TEMP 36.4–37.1; O2SAT 92–94
[2017-12-27 05:53] LABS: HEMATOCRIT 31.1 % (42-52); HEMOGLOBIN 10.5 g/dL (14.0-18.0); MEAN CELL VOLUME 87.6 fL (80-100); MEAN CORPUSCULAR HEMOGLOBIN 29.6 pg (25-34); MEAN CORPUSCULAR HGB CONC 33.8 g/dl (32-36); MEAN PLATELET VOLUME 9.8 fL (7.4-10.4); PLATELET COUNT 111 K/uL (130-400); RED CELL DISTRIBUTION WIDTH CV 14.3 % (11.5-14.5); WHITE BLOOD COUNT 5.17 K/uL (4.8-10.8)
[2017-12-27] MEDS: CLOTRIMAZOLE 10 MG TROCHE LOZ SCH ×6 (05:55→22:05)
[2017-12-27 06:35] LABS: CALCIUM 7.8 mg/dl (8.5-10.1); CREATININE 6.16 mg/dl (0.60-1.40); POTASSIUM 4.4 mmol/L (3.5-5.1)
[2017-12-27] MEDS: ONDANSETRON INJ 2 MG/ML 2 ML VIAL IV PRN ×2 (07:37→21:31)
[2017-12-27] MEDS: CALCIUM 600MG + VIT D 400 IU TAB PO SCH (08:06)
[2017-12-27] MEDS: CEROVITE ADV FORMULA TAB PO SCH (08:06)
[2017-12-27] MEDS: PANTOprazole SOD 40 MG TAB PO SCH (08:06)
--- NOTE | 2017-12-27 10:29 | Nephrology Progress Note ---
Nephrology Progress Note Date of Service Dec 27, 2017. Chief Complaint Follow-up for acute kidney injury, hyperkalemia and metabolic acidosis. Yen Mulligan was seen and examined in his room this morning. Has been feeling stuffy and congested this morning with occasional feeling of shortness of breath. Appetite remains poor. Had 2 dialysis treatment tolerated well. Remain oliguric. Had 3 hours dialysis yesterday. Review of Systems A complete review of systems was performed. Pertinent positives are noted above. All other systems are negative. Vital Signs Last 8 Hrs Date Time Temp Pulse Resp B/P (MAP) Pulse Ox O2 Delivery O2 Flow Rate FiO2 12/27/17 08:13 36.4 58 18 164/78 (106) 94 Room Air 12/27/17 08:00 Room Air 12/27/17 01:49 36.6 Last Recorded Weight Weight (Kilograms): 91.400 Physical Exam GENERAL: Elderly male , AAA x 3, pleasant, ill -appearing, not in any distress. NECK: Supple, no JVD. RESPIRATORY: Normal breathing efforts, no accessory muscle use, clear to auscultation bilaterally, no wheezes or rales. CARDIOVASCULAR: S1, S2 normal, rate rhythm regular. EXTREMITY: No lower extremity edema NEURO: speech fluent. PSYCHIATRY: Normal mood and judgment Family History Patient reports no known family medical history. Patient could not remember much detail but denied any family history of chronic kidney disease or end-stage renal disease. Social History Smokeless Tobacco Use: No Alcohol Use: none Drug Use: none Marital Status: Housing Status: lives with family Occupation: employed Laboratory Results Past 24 Hours 12/27/17 05:30 12/27/17 05:30 Test 12/27/17 05:30 Red Blood Count 3.55 M/uL (4.7-6.1) Mean Corpuscular Volume 87.6 fL (80-100) Mean Corpuscular Hemoglobin 29.6 pg (25-34) Mean Corpuscular Hemoglobin Concent 33.8 g/dl (32-36) RDW Standard Deviation 46.0 fL (36.4-46.3) RDW Coefficient of Variation 14.3 % (11.5-14.5) Mean Platelet Volume 9.8 fL (7.4-10.4) Prothrombin Time 10.6 SECONDS (9.0-12.0) Prothromb Time International Ratio 1.0 (0.9-1.1) Anion Gap 7.0 mmol/L (3-11) Est Creatinine Clear Calc Drug Dose 11.8 ml/min Estimated GFR () 9.4 Estimated GFR (Non- 8.1 BUN/Creatinine Ratio 12.2 (10-20) Calcium Level 7.8 mg/dl (8.5-10.1) Allergies Coded Allergies: No Known Allergies (Verified , 11/30/15) Medications Current Inpatient Medications Medications (Trade) Dose Ordered Sig/Nahomy Route Start Time Stop Time Status Last Admin Dose Admin Acetaminophen (Tylenol Tab) 650 mg Q4H PRN PO 12/23/17 23:45 01/22/18 23:44 12/26/17 23:45 650 MG Morphine Sulfate (MoRPHine SULFATE INJ) 2 mg Q2H PRN IV 12/24/17 00:30 01/07/18 00:29 12/24/17 00:31 2 MG Morphine Sulfate (MoRPHine SULFATE INJ) 4 mg Q2H PRN IV 12/24/17 00:30 01/07/18 00:29 Clotrimazole (Mycelex 10MG Itzel) 1 itzel 5XDQ4H SUMAN 12/24/17 07:00 01/03/18 06:59 12/27/17 05:55 1 ITZEL Hydromorphone HCl (Dilaudid Inj) 1 mg Q3H PRN IV 12/24/17 01:45 01/07/18 01:44 12/24/17 20:40 1 MG Terazosin HCl (Hytrin Cap) 5 mg HS PO 12/24/17 21:00 01/23/18 20:59 12/26/17 20:57 5 MG Calcium/Vitamin D (Caltrate Plus Tab) 1 tab QAM PO 12/24/17 09:00 01/23/18 08:59 12/27/17 08:06 1 TAB Multivitamins/ Minerals (Multivitamin W/ Minerals Tab) 1 tab QAM PO 12/24/17 09:00 01/23/18 08:59 12/27/17 08:06 1 TAB Pantoprazole Sodium (Protonix Tab) 40 mg QAM PO 12/24/17 09:00 01/23/18 08:59 12/27/17 08:06 40 MG Fluconazole (Consult) 1 ea UD PRN N/A 1/24/18 05:00 01/23/18 04:59 Tamsulosin HCl (Flomax Cap) 0.4 mg HS PO 12/24/17 21:00 01/23/18 20:59 12/26/17 20:56 0.4 MG Ondansetron HCl (Zofran Inj) 4 mg Q4H PRN IV 12/25/17 10:00 01/24/18 09:59 12/27/17 07:37 4 MG Promethazine HCl (Phenergan Inj) 12.5 mg Q6 PRN IM 12/25/17 13:30 01/24/18 09:59 Fluconazole (Diflucan Tab) 100 mg DAILY@2100 PO 12/26/17 21:00 01/01/18 21:01 12/26/17 20:56 100 MG Impression (1) GRISELDA (acute kidney injury) (2) Anemia (3) Thrombocytopenia (4) Hyperkalemia (5) Metabolic acidosis Isaak Is a 77-year-old gentlemen the with history of hypertension, gout and chronic NSAID use admitted to the hospital with 1 week history of fatigue, feeling unwell, decreased p.o. intake and oliguria. On admission he was found to be in acute kidney injury, creatinine was 10.8, BUN 163 with prior creatinine from 2015 1.5. He also had hyperkalemia and metabolic acidosis. On admission he was found to be volume depleted, started with fluid resuscitation, so far received at least 3 liters of normal saline. He remain oligo anuric. There has not been any change in renal function or electrolyte abnormality. Has history of chronic NSAID use for many years. His clearly uremic with significantly elevated BUN and creatinine. Has history of hypertension seems to be well controlled at home he was on lisinopril 20 milligram daily only. Was on allopurinol for gout. No history of diabetes or coronary artery disease. Unclear etiology for RGISELDA, differentials include ATN, NSAID induced nephropathy , progressive loss of renal function from chronic bladder outlet obstruction. Unlikely acute GN. Recommendations --plan for dialysis today aim for 1 liter UF --monitor intake and output --continue on Venofer 20 milligram every other day for total 5 dose. --continue to hold lisinopril, avoid other nephrotoxic medications --dose medications for GFR less than 10 --plan for transport to [place] for IR guided renal biopsy --after dialysis today, will be monitor urine output, electrolyte and renal function and assess for dialysis on Friday. Will follow
[2017-12-27] MEDS ORDERED: POLYETHYLENE (MIRALAX) 17 GM PACK PO PRN (19:15)
--- NOTE | 2017-12-27 19:45 | Family Medicine Progress Note ---
Progress Note Date of Service Dec 27, 2017. Subjective Pt evaluation today including: conversation w/ patient, chart review, lab review Pain: c/o abdominal discomfort PO Intake: adequate Spoke at length with pt while he was receiving inpt dialysis - explained moving forward with [facility] kidney biopsy on Friday, waiting to hear from case mgmt re : transport early Friday morning. Pt c/o some abdominal pain, states he has not had a BM in a few days. Feels nauseous. ROS otherwise unremarkable. Medications Current Inpatient Medications Medications (Trade) Dose Ordered Sig/Nahomy Route Start Time Stop Time Status Last Admin Dose Admin Acetaminophen (Tylenol Tab) 650 mg Q4H PRN PO 12/23/17 23:45 01/22/18 23:44 12/26/17 23:45 650 MG Morphine Sulfate (MoRPHine SULFATE INJ) 2 mg Q2H PRN IV 12/24/17 00:30 01/07/18 00:29 12/24/17 00:31 2 MG Morphine Sulfate (MoRPHine SULFATE INJ) 4 mg Q2H PRN IV 12/24/17 00:30 01/07/18 00:29 Clotrimazole (Mycelex 10MG Itzel) 1 itzel 5XDQ4H SUMAN 12/24/17 07:00 01/03/18 06:59 12/27/17 18:17 1 ITZEL Hydromorphone HCl (Dilaudid Inj) 1 mg Q3H PRN IV 12/24/17 01:45 01/07/18 01:44 12/24/17 20:40 1 MG Terazosin HCl (Hytrin Cap) 5 mg HS PO 12/24/17 21:00 01/23/18 20:59 12/26/17 20:57 5 MG Calcium/Vitamin D (Caltrate Plus Tab) 1 tab QAM PO 12/24/17 09:00 01/23/18 08:59 12/27/17 08:06 1 TAB Multivitamins/ Minerals (Multivitamin W/ Minerals Tab) 1 tab QAM PO 12/24/17 09:00 01/23/18 08:59 12/27/17 08:06 1 TAB Pantoprazole Sodium (Protonix Tab) 40 mg QAM PO 12/24/17 09:00 01/23/18 08:59 12/27/17 08:06 40 MG Fluconazole (Consult) 1 ea UD PRN N/A 12/24/17 05:00 01/23/18 04:59 Tamsulosin HCl (Flomax Cap) 0.4 mg HS PO 12/24/17 21:00 01/23/18 20:59 12/26/17 20:56 0.4 MG Ondansetron HCl (Zofran Inj) 4 mg Q4H PRN IV 12/25/17 10:00 01/24/18 09:59 12/27/17 07:37 4 MG Promethazine HCl (Phenergan Inj) 12.5 mg Q6 PRN IM 12/25/17 13:30 01/24/18 09:59 Fluconazole (Diflucan Tab) 100 mg DAILY@2100 PO 12/26/17 21:00 01/01/18 21:01 12/26/17 20:56 100 MG Objective Physical Exam General Appearance: WD/WN, no apparent distress Eyes: normal inspection, EOMI ENT: hearing grossly normal Respiratory/Chest: no respiratory distress Abdomen: soft, + distended (moderately distended) Neurologic/Psychiatric: alert, normal mood/affect Skin: normal color, warm/dry Laboratory Results 12/27/17 05:30 12/27/17 05:30 Test 12/27/17 05:30 Red Blood Count 3.55 M/uL (4.7-6.1) Mean Corpuscular Volume 87.6 fL (80-100) Mean Corpuscular Hemoglobin 29.6 pg (25-34) Mean Corpuscular Hemoglobin Concent 33.8 g/dl (32-36) RDW Standard Deviation 46.0 fL (36.4-46.3) RDW Coefficient of Variation 14.3 % (11.5-14.5) Mean Platelet Volume 9.8 fL (7.4-10.4) Prothrombin Time 10.6 SECONDS (9.0-12.0) Prothromb Time International Ratio 1.0 (0.9-1.1) Anion Gap 7.0 mmol/L (3-11) Est Creatinine Clear Calc Drug Dose 11.8 ml/min Estimated GFR () 9.4 Estimated GFR (Non- 8.1 BUN/Creatinine Ratio 12.2 (10-20) Calcium Level 7.8 mg/dl (8.5-10.1) Assessment and Plan 77 yo M presenting to us with severe renal failure possibly secondary to dehydration, viral process or bacterial infection, or an autoimmune process. GRISELDA - secondary to dehydration on CKD III, reflective of prerenal and some degree of post-renal from prostatomegaly. Baseline Cr is approx 1.4-1.5. IVF with NSS initially. Nephrology consulted, rec appreciated. s/p emergent permcath insertion for uremic symptoms. Renal U/S: No hydronephrosis. Bilateral renal cysts. FeNa 1.6% (ATN/intrinsic) - Has dialysis again today - Multiple Myeloma and rheumatology labs ordered and pending - Arranging transfer to [place] for procedure only - renal biopsy to be done by interventional radiology as it is felt this could be helpful in diagnosis and management. After >120min of phone calls and other correspondence, finally scheduled for 9: 00am on 12/29/17. Needs to arrive in [facility] at 7:00am, and will return to [facility] around noon, unless a complication arises from procedure , in which case patient will be admitted to [facility] under Dr. Redmond's service. Contact: Anay [phone] x. [phone] for questions. Coordination re: transport pending from our side. Will need to be NPO prior to procedure, no blood thinners /anticoagulants, send patient with most recent labs (need plt >50 [consider transfusion if necessary], INR <1.5, and most recent Cr) and a CD of all imaging performed in this admission. May be worth sending patient with script for procedure (in case they didn't get the one I faxed over) - I&O and daily weight - Trend BMP Myalgias/ erythematous rash - ID consulted, recs appreciated. Flu neg, lyme neg. Echo: LV systolic function is normal. Grade I diastolic dysfunction. Borderline left atrial enlargement. Inferior vena cava is mildly dilated. No obvious valvular lesions suggestive of endocarditis - EBV immunoglobulins as well as CMV and parvovirus pending - Continue Rocephin 2 G IV daily, Prelim blood and urine cultures negative Evidence of inflammation - ESR >90, CRP ~27 - Trend ESR/CRP - Rheumatology labs ordered and pending (concern for ANCA disease) Thrombocytopenia - possibly secondary to uremia - Trend CBC - ASA held because of low platelets Hyperkalemia and hyponatremia - no concerning changes on EKG, and resolved with IVF - Trend BMP HTN - Lisinopril held - Continue terazosin Gout - Allopurinol held because of Cr GERD - Omeprazole 20 mg DVT Prophylaxis - SCD - Trend plt and reassess for chemical prophylaxis Resident Physician Supervision Note: I interviewed and examined the patient. Discussed with Dr. Rojas and agree with findings and plan as documented in the note. Any exceptions or clarifications are listed here: None Documented By: Robin Salas doing better feeling better overall. some nausea, but notes no BM for days appreciates efforts to do the bulk of his care here. understands risks/ benefits and rationale for bx vitals noted nad abd mild distention mild diffuse tenderness no guarding no rebound c/w constipation ARF - ?etiology - await seriologies, continue HD, sx have improved w HD suggesting acute deterioration was uremia. Bx friday now scheduled, question is if transportation is arranged, will ask case management to investigate, but seems most appropriate given his desire to have care here and ongoing care outside of renal bx able to be done at this level of care. otherwise as above. Resident Tracking Resident Involvement: Resident Care Provided Care Provided: Adult Hospital Medicine
[2017-12-27] MEDS: FLUCONAZOLE 100 MG TAB PO SCH (21:00)
[2017-12-27] MEDS: TAMSULOSIN HCL 0.4 MG CAP PO SCH (21:00)
[2017-12-27] MEDS: MoRPHine SULFATE 2 MG/ML CARP IV PRN (21:31)
[2017-12-28] MEDS: DOCUSATE SODIUM 100 MG CAP PO SCH ×3 (02:00→19:43)
[2017-12-28 06:08] LABS: BASO % 0.2 %; BASO ABS # 0.01 K/uL (0-0.2); EOS % 0.9 %; EOS ABS # 0.05 K/uL (0-0.5); HEMATOCRIT 33.2 % (42-52); HEMOGLOBIN 11.1 g/dL (14.0-18.0); IG# 0.05 K/uL (0.00-0.02); LYMPH ABS # 1.04 K/uL (1.2-3.4); MEAN CELL VOLUME 88.3 fL (80-100); MEAN CORPUSCULAR HEMOGLOBIN 29.5 pg (25-34); MEAN CORPUSCULAR HGB CONC 33.4 g/dl (32-36); MEAN PLATELET VOLUME 9.9 fL (7.4-10.4); MONO % 7.5 %; MONO ABS # 0.41 K/uL (0.11-0.59); NEUT % 71.5 %; PLATELET COUNT 149 K/uL (130-400); RED CELL DISTRIBUTION WIDTH SD 45.6 fL (36.4-46.3); WHITE BLOOD COUNT 5.46 K/uL (4.8-10.8)
[2017-12-28 06:54] LABS: ALBUMIN 2.3 gm/dl (3.4-5.0); CREATININE 4.81 mg/dl (0.60-1.40); POTASSIUM 4.7 mmol/L (3.5-5.1); TOTAL PROTEIN 6.7 gm/dl (6.4-8.2)
[2017-12-28] MEDS: PANTOprazole SOD 40 MG TAB PO SCH (07:13)
[2017-12-28] MEDS: CEROVITE ADV FORMULA TAB PO SCH (07:14)
[2017-12-28] MEDS: CALCIUM 600MG + VIT D 400 IU TAB PO SCH (07:14)
[2017-12-28 07:44] VITALS: BP 159/86; PULSE 76; TEMP 36.7; O2SAT 92
--- NOTE | 2017-12-28 08:57 | Family Medicine Progress Note ---
Progress Note Date of Service Dec 28, 2017. Subjective Pt evaluation today including: conversation w/ patient, physical exam, chart review, lab review Pain: controlled PO Intake: adequate Pt reports he has not had a BM since Friday (6 days) and normally takes colace BID at home. Had nausea last night, unable to take PO meds. Able to take colace this morning, tolerating. Denies vomiting. Also states that he has anxiety and restlessness after his night time morphine dose for 2 nights now. Would like a different pain med. Has questions about what the plan is for tomorrow to [place]. Objective Physical Exam General Appearance: WD/WN, no apparent distress (sitting up in bed, eating breakfast) Eyes: normal inspection, EOMI Respiratory/Chest: lungs clear, normal breath sounds, no respiratory distress Cardiovascular: regular rate, rhythm, no gallop Abdomen: normal bowel sounds, soft Neurologic/Psychiatric: alert, normal mood/affect Skin: normal color, warm/dry, + pertinent finding (port dialysis in tact chest) Laboratory Results 12/28/17 05:37 Red Blood Count 3.76, Mean Corpuscular Volume 88.3, Mean Corpuscular Hemoglobin 29.5, Mean Corpuscular Hemoglobin Concent 33.4, Mean Platelet Volume 9.9, Neutrophils (%) (Auto) 71.5, Lymphocytes (%) (Auto) 19.0, Monocytes (%) (Auto) 7.5, Eosinophils (%) (Auto) 0.9, Basophils (%) (Auto) 0.2, Neutrophils # (Auto) 3.90, Lymphocytes # (Auto) 1.04, Monocytes # (Auto) 0.41, Eosinophils # (Auto) 0.05, Basophils # (Auto) 0.01 12/28/17 05:37 Test 12/28/17 05:37 White Blood Count 5.46 K/uL (4.8-10.8) Red Blood Count 3.76 M/uL (4.7-6.1) Hemoglobin 11.1 g/dL (14.0-18.0) Hematocrit 33.2 % (42-52) Mean Corpuscular Volume 88.3 fL (80-100) Mean Corpuscular Hemoglobin 29.5 pg (25-34) Mean Corpuscular Hemoglobin Concent 33.4 g/dl (32-36) Platelet Count 149 K/uL (130-400) Mean Platelet Volume 9.9 fL (7.4-10.4) Neutrophils (%) (Auto) 71.5 % Lymphocytes (%) (Auto) 19.0 % Monocytes (%) (Auto) 7.5 % Eosinophils (%) (Auto) 0.9 % Basophils (%) (Auto) 0.2 % Neutrophils # (Auto) 3.90 K/uL (1.4-6.5) Lymphocytes # (Auto) 1.04 K/uL (1.2-3.4) Monocytes # (Auto) 0.41 K/uL (0.11-0.59) Eosinophils # (Auto) 0.05 K/uL (0-0.5) Basophils # (Auto) 0.01 K/uL (0-0.2) RDW Standard Deviation 45.6 fL (36.4-46.3) RDW Coefficient of Variation 14.0 % (11.5-14.5) Immature Granulocyte % (Auto) 0.9 % Immature Granulocyte # (Auto) 0.05 K/uL (0.00-0.02) Prothrombin Time 11.0 SECONDS (9.0-12.0) Prothromb Time International Ratio 1.0 (0.9-1.1) Anion Gap 6.0 mmol/L (3-11) Est Creatinine Clear Calc Drug Dose 14.9 ml/min Estimated GFR () 12.7 Estimated GFR (Non- 11.0 BUN/Creatinine Ratio 9.3 (10-20) Calcium Level 8.0 mg/dl (8.5-10.1) Total Bilirubin 0.7 mg/dl (0.2-1) Aspartate Amino Transf (AST/SGOT) 44 U/L (15-37) Alanine Aminotransferase (ALT/SGPT) 35 U/L (12-78) Alkaline Phosphatase 197 U/L (45-117) Total Protein 6.7 gm/dl (6.4-8.2) Albumin 2.3 gm/dl (3.4-5.0) Globulin 4.4 gm/dl (2.5-4.0) Albumin/Globulin Ratio 0.5 (0.9-2) Assessment and Plan 77 yo M presenting to us with severe renal failure possibly secondary to dehydration, viral process or bacterial infection, or an autoimmune process. GRISELDA - secondary to dehydration on CKD III, reflective of prerenal and some degree of post-renal from prostatomegaly. Baseline Cr is approx 1.4-1.5. IVF with NSS initially. Nephrology consulted, rec appreciated. s/p emergent permcath insertion for uremic symptoms. Renal U/S: No hydronephrosis. Bilateral renal cysts. FeNa 1.6% (ATN/intrinsic) - Multiple Myeloma and rheumatology labs ordered and pending - Arranging transfer to [place] for procedure only - renal biopsy to be done by interventional radiology as it is felt this could be helpful in diagnosis and management. After >120min of phone calls and other correspondence, finally scheduled for 9: 00am on 12/29/17. Needs to arrive in [facility] [facility] at 7:00am, and will return to [facility] around noon, unless a complication arises from procedure , in which case patient will be admitted to [place] under Dr. Redmond's service. Contact: Anay [phone] x. [phone] for questions. Coordination re: transport pending from our side. Will need to be NPO prior to procedure, no blood thinners /anticoagulants, send patient with most recent labs (need plt >50 [consider transfusion if necessary], INR <1.5, and most recent Cr) and a CD of all imaging performed in this admission. May be worth sending patient with script for procedure (in case they didn't get the one I faxed over) - I&O and daily weight - Trend BMP Myalgias/ erythematous rash - ID consulted, recs appreciated. Flu neg, lyme neg. Echo: LV systolic function is normal. Grade I diastolic dysfunction. Borderline left atrial enlargement. Inferior vena cava is mildly dilated. No obvious valvular lesions suggestive of endocarditis - EBV IgG high, otherwise other immunoglobulins as well as CMV and parvovirus WNL. - Given Rocephin 2 G IV daily x2, blood and urine cultures negative - pain seems improved, will de-escalate morphine Evidence of inflammation - ESR >90, CRP ~27 - Trend ESR/CRP - Rheumatology labs ordered and pending (concern for ANCA disease) Thrombocytopenia - possibly secondary to uremia - Trend CBC - ASA held because of low platelets Hyperkalemia and hyponatremia - no concerning changes on EKG, and resolved with IVF - Trend BMP HTN - Lisinopril held - Continue terazosin Gout - Allopurinol held because of Cr GERD - Omeprazole 20 mg Constipation - ordered miralax, colace, prune juice. Follow. DVT Prophylaxis - SCD - Trend plt and reassess for chemical prophylaxis Resident Physician Supervision Note: I interviewed and examined the patient. Discussed with Dr. Rojas and agree with findings and plan as documented in the note. Any exceptions or clarifications are listed here: None Documented By: Robin Salas feeling better in general for bx tomorrow - ensured coordination with [facility] d[facility]w [facility] who also dw IR doc - kat at 715a is OK they'll either be able to see him at his 915 slot, work him in between cases, or at the latest bx at 2p informed pt and of all this - expressed understanding vitals noted nad breathing unlabored no pallor or icterus ARF - uncertain etiology. -despite BPH, he lacks general milieu of LUTS and renal US without hydronephrosis -despite longstanding naproxen and ACEi, renal US does not show cortical scarring to corroborate this as culprit (and he notes actually [place] checks labs once a year and never informed him of renal problems) -sx of feeling fine, then abruptly not, also begs acute situation. urine sediment, however, without much of a lead -serologies pending -because of possible reversibility should an acute process be identified, all in agreement (including pt) that renal biopsy is necessary acutely -arrangements made for bx tomorrow AM at [facility] - then return after procedure thrombocytopenia resolved otherwise as above Resident Tracking Resident Involvement: Resident Care Provided Care Provided: Adult Hospital Medicine
[2017-12-28] MEDS ORDERED: TRAMADOL HCL 50 MG TAB PO PRN (10:45)
[2017-12-28] MEDS: AMLODIPINE BESYLATE 5 MG TAB PO SCH (10:47)
[2017-12-28] MEDS: CLOTRIMAZOLE 10 MG TROCHE LOZ SCH ×4 (10:48→23:00)
--- NOTE | 2017-12-28 10:49 | Nephrology Progress Note ---
Nephrology Progress Note Date of Service Dec 28, 2017. Chief Complaint Follow-up for acute kidney injury, hyperkalemia and metabolic acidosis. Yen Mulligan was seen and examined in his room this morning. Appetite remains poor and has occasional nausea. Had 3 dialysis treatment tolerated well. Remain oliguric. Had 4 hours dialysis yesterday. BP running high Review of Systems A complete review of systems was performed. Pertinent positives are noted above. All other systems are negative. Vital Signs Last 8 Hrs Date Time Temp Pulse Resp B/P (MAP) Pulse Ox O2 Delivery O2 Flow Rate FiO2 12/28/17 07:44 36.7 76 17 159/86 (110) 92 Room Air 12/28/17 07:23 Room Air Last Recorded Weight Weight (Kilograms): 88.800 Physical Exam GENERAL: Elderly male , AAA x 3, pleasant, ill -appearing, not in any distress. NECK: Supple, no JVD. RESPIRATORY: Normal breathing efforts, no accessory muscle use, clear to auscultation bilaterally, no wheezes or rales. CARDIOVASCULAR: S1, S2 normal, rate rhythm regular. EXTREMITY: No lower extremity edema NEURO: speech fluent. PSYCHIATRY: Normal mood and judgment Family History Patient reports no known family medical history. Patient could not remember much detail but denied any family history of chronic kidney disease or end-stage renal disease. Social History Smokeless Tobacco Use: No Alcohol Use: none Drug Use: none Marital Status: Housing Status: lives with family Occupation: employed Laboratory Results Past 24 Hours 12/28/17 05:37 Red Blood Count 3.76, Mean Corpuscular Volume 88.3, Mean Corpuscular Hemoglobin 29.5, Mean Corpuscular Hemoglobin Concent 33.4, Mean Platelet Volume 9.9, Neutrophils (%) (Auto) 71.5, Lymphocytes (%) (Auto) 19.0, Monocytes (%) (Auto) 7.5, Eosinophils (%) (Auto) 0.9, Basophils (%) (Auto) 0.2, Neutrophils # (Auto) 3.90, Lymphocytes # (Auto) 1.04, Monocytes # (Auto) 0.41, Eosinophils # (Auto) 0.05, Basophils # (Auto) 0.01 12/28/17 05:37 Test 12/28/17 05:37 White Blood Count 5.46 K/uL (4.8-10.8) Red Blood Count 3.76 M/uL (4.7-6.1) Hemoglobin 11.1 g/dL (14.0-18.0) Hematocrit 33.2 % (42-52) Mean Corpuscular Volume 88.3 fL (80-100) Mean Corpuscular Hemoglobin 29.5 pg (25-34) Mean Corpuscular Hemoglobin Concent 33.4 g/dl (32-36) Platelet Count 149 K/uL (130-400) Mean Platelet Volume 9.9 fL (7.4-10.4) Neutrophils (%) (Auto) 71.5 % Lymphocytes (%) (Auto) 19.0 % Monocytes (%) (Auto) 7.5 % Eosinophils (%) (Auto) 0.9 % Basophils (%) (Auto) 0.2 % Neutrophils # (Auto) 3.90 K/uL (1.4-6.5) Lymphocytes # (Auto) 1.04 K/uL (1.2-3.4) Monocytes # (Auto) 0.41 K/uL (0.11-0.59) Eosinophils # (Auto) 0.05 K/uL (0-0.5) Basophils # (Auto) 0.01 K/uL (0-0.2) RDW Standard Deviation 45.6 fL (36.4-46.3) RDW Coefficient of Variation 14.0 % (11.5-14.5) Immature Granulocyte % (Auto) 0.9 % Immature Granulocyte # (Auto) 0.05 K/uL (0.00-0.02) Prothrombin Time 11.0 SECONDS (9.0-12.0) Prothromb Time International Ratio 1.0 (0.9-1.1) Anion Gap 6.0 mmol/L (3-11) Est Creatinine Clear Calc Drug Dose 14.9 ml/min Estimated GFR () 12.7 Estimated GFR (Non- 11.0 BUN/Creatinine Ratio 9.3 (10-20) Calcium Level 8.0 mg/dl (8.5-10.1) Total Bilirubin 0.7 mg/dl (0.2-1) Aspartate Amino Transf (AST/SGOT) 44 U/L (15-37) Alanine Aminotransferase (ALT/SGPT) 35 U/L (12-78) Alkaline Phosphatase 197 U/L (45-117) Total Protein 6.7 gm/dl (6.4-8.2) Albumin 2.3 gm/dl (3.4-5.0) Globulin 4.4 gm/dl (2.5-4.0) Albumin/Globulin Ratio 0.5 (0.9-2) Allergies Coded Allergies: No Known Allergies (Verified , 11/30/15) Medications Current Inpatient Medications Medications (Trade) Dose Ordered Sig/Nahomy Route Start Time Stop Time Status Last Admin Dose Admin Acetaminophen (Tylenol Tab) 650 mg Q4H PRN PO 12/23/17 23:45 01/22/18 23:44 12/26/17 23:45 650 MG Clotrimazole (Mycelex 10MG Itzel) 1 itzel 5XDQ4H SUMAN 12/24/17 07:00 01/03/18 06:59 12/27/17 18:17 1 ITZEL Hydromorphone HCl (Dilaudid Inj) 1 mg Q3H PRN IV 12/24/17 01:45 01/07/18 01:44 12/24/17 20:40 1 MG Terazosin HCl (Hytrin Cap) 5 mg HS PO 12/24/17 21:00 01/23/18 20:59 12/26/17 20:57 5 MG Calcium/Vitamin D (Caltrate Plus Tab) 1 tab QAM PO 12/24/17 09:00 01/23/18 08:59 12/28/17 07:14 1 TAB Multivitamins/ Minerals (Multivitamin W/ Minerals Tab) 1 tab QAM PO 12/24/17 09:00 01/23/18 08:59 12/28/17 07:14 1 TAB Pantoprazole Sodium (Protonix Tab) 40 mg QAM PO 12/24/17 09:00 01/23/18 08:59 12/28/17 07:13 40 MG Fluconazole (Consult) 1 ea UD PRN N/A 12/24/17 05:00 01/23/18 04:59 Tamsulosin HCl (Flomax Cap) 0.4 mg HS PO 12/24/17 21:00 01/23/18 20:59 12/26/17 20:56 0.4 MG Ondansetron HCl (Zofran Inj) 4 mg Q4H PRN IV 12/25/17 10:00 01/24/18 09:59 12/27/17 21:31 4 MG Promethazine HCl (Phenergan Inj) 12.5 mg Q6 PRN IM 12/25/17 13:30 01/24/18 09:59 Fluconazole (Diflucan Tab) 100 mg DAILY@2100 PO 12/26/17 21:00 01/01/18 21:01 12/26/17 20:56 100 MG Docusate Sodium (coLACE CAP) 100 mg BID PO 12/27/17 20:00 01/26/18 19:59 12/28/17 07:14 100 MG Polyethylene (Miralax Powder Packet) 17 gm DAILY PRN PO 12/27/17 19:15 01/26/18 19:14 Impression (1) GRISELDA (acute kidney injury) (2) Anemia (3) Thrombocytopenia (4) Hyperkalemia (5) Metabolic acidosis Isaak Is a 77-year-old gentlemen the with history of hypertension, gout and chronic NSAID use admitted to the hospital with 1 week history of fatigue, feeling unwell, decreased p.o. intake and oliguria. On admission he was found to be in acute kidney injury, creatinine was 10.8, BUN 163 with prior creatinine from 2015 1.5. He also had hyperkalemia and metabolic acidosis. On admission he was found to be volume depleted, started with fluid resuscitation, so far received at least 3 liters of normal saline. He remain oligo anuric. There has not been any change in renal function or electrolyte abnormality. Has history of chronic NSAID use for many years. His clearly uremic with significantly elevated BUN and creatinine. Has history of hypertension seems to be well controlled at home he was on lisinopril 20 milligram daily only. Was on allopurinol for gout. No history of diabetes or coronary artery disease. Unclear etiology for GRISELDA, differentials include ATN, NSAID induced nephropathy , progressive loss of renal function from chronic bladder outlet obstruction. Unlikely acute GN. Started on HD on 12/24/17 as pt was oliguric and significantly uremic. Recommendations --as BP running high and patient is scheduled to have biopsy by IR at [facility] tomorrow, will start on amlodipine 5 milligrams p.o. daily --Plt improved to 154 --continue to monitor renal function and urine output, will decide about next dialysis depending on renal function, urine output and volume status on Friday. If no meaningful renal recovery will need to set up for outpatient dialysis at [facility]. If renal function starts to improve and patient can be off of dialysis, can be discharged with outpatient follow-up and review of biopsy result in a week after discharge --monitor intake and output --continue on Venofer 20 milligram every other day for total 5 dose. --continue to hold lisinopril, avoid other nephrotoxic medications --dose medications for GFR less than 10 Will follow
[2017-12-28 15:08] VITALS: BP 157/86; PULSE 78; TEMP 36.6; O2SAT 94
[2017-12-28] MEDS: ONDANSETRON INJ 2 MG/ML 2 ML VIAL IV PRN (19:46)
[2017-12-28] MEDS: FLUCONAZOLE 100 MG TAB PO SCH (19:49)
[2017-12-28] MEDS: TAMSULOSIN HCL 0.4 MG CAP PO SCH (19:49)
[2017-12-28 19:52] VITALS: BP 150/81; PULSE 70; O2SAT 94
[2017-12-28 20:00] VITALS: O2SAT 94
[2017-12-28 23:10] VITALS: BP 136/73; PULSE 66; TEMP 36.7; O2SAT 92
[2017-12-29] VITALS (8 sets, daily range): BP systolic 144–162; BP diastolic 73–86; PULSE 68–84; TEMP 36.5–36.9; O2SAT 94–96
[2017-12-29] MEDS: CLOTRIMAZOLE 10 MG TROCHE LOZ SCH ×5 (05:29→23:58)
[2017-12-29 06:02] LABS: BASO % 0.2 %; BASO ABS # 0.01 K/uL (0-0.2); EOS % 1.8 %; EOS ABS # 0.09 K/uL (0-0.5); HEMATOCRIT 33.6 % (42-52); HEMOGLOBIN 11.1 g/dL (14.0-18.0); IG# 0.05 K/uL (0.00-0.02); LYMPH % 25.4 %; MEAN CELL VOLUME 87.7 fL (80-100); MONO ABS # 0.41 K/uL (0.11-0.59); NEUT % 63.6 %; NEUT ABS # 3.25 K/uL (1.4-6.5); PLATELET COUNT 178 K/uL (130-400); RED CELL DISTRIBUTION WIDTH CV 13.8 % (11.5-14.5); RED CELL DISTRIBUTION WIDTH SD 44.4 fL (36.4-46.3); WHITE BLOOD COUNT 5.11 K/uL (4.8-10.8)
[2017-12-29 06:10] LABS: INR 1.1 (0.9-1.1)
--- NOTE | 2017-12-29 06:42 | Family Medicine Progress Note ---
Progress Note Date of Service Dec 29, 2017. Subjective Pt evaluation today including: conversation w/ patient, physical exam, conversation w/ design and sales consultant, review of inpatient medication list Pain: none Voiding: no voiding problems Patient went for biopsy at [place] this morning Is feeling much better and is no longer nauseated Still has a decreased appetite as food does not taste good Has had good amount of urine output today Constitutional: No fever, No chills, No sweats Respiratory: No cough, No sputum, No shortness of breath Cardiovascular: No chest pain, No claudication, No palpitations Abdomen: No pain, No nausea, No vomiting, No diarrhea Musculoskeletal: No joint pain, No muscle pain Male : No dysuria, No hematuria Skin: No rash, No itch Medications Current Inpatient Medications Medications (Trade) Dose Ordered Sig/Nahomy Route Start Time Stop Time Status Last Admin Dose Admin Acetaminophen (Tylenol Tab) 650 mg Q4H PRN PO 12/23/17 23:45 01/22/18 23:44 12/26/17 23:45 650 MG Clotrimazole (Mycelex 10MG Itzel) 1 itzel 5XDQ4H SMUAN 12/24/17 07:00 01/03/18 06:59 12/28/17 18:39 1 ITZEL Terazosin HCl (Hytrin Cap) 5 mg HS PO 12/24/17 21:00 01/23/18 20:59 12/28/17 19:49 5 MG Calcium/Vitamin D (Caltrate Plus Tab) 1 tab QAM PO 12/24/17 09:00 01/23/18 08:59 12/28/17 07:14 1 TAB Multivitamins/ Minerals (Multivitamin W/ Minerals Tab) 1 tab QAM PO 12/24/17 09:00 01/23/18 08:59 12/28/17 07:14 1 TAB Pantoprazole Sodium (Protonix Tab) 40 mg QAM PO 12/24/17 09:00 01/23/18 08:59 12/28/17 07:13 40 MG Fluconazole (Consult) 1 ea UD PRN N/A 12/24/17 05:00 01/23/18 04:59 Tamsulosin HCl (Flomax Cap) 0.4 mg HS PO 12/24/17 21:00 01/23/18 20:59 1/28/18 19:49 0.4 MG Ondansetron HCl (Zofran Inj) 4 mg Q4H PRN IV 12/25/17 10:00 01/24/18 09:59 12/29/17 07:25 4 MG Promethazine HCl (Phenergan Inj) 12.5 mg Q6 PRN IM 12/25/17 13:30 01/24/18 09:59 Fluconazole (Diflucan Tab) 100 mg DAILY@2100 PO 12/26/17 21:00 01/01/18 21:01 12/28/17 19:49 100 MG Docusate Sodium (coLACE CAP) 100 mg BID PO 12/27/17 20:00 01/26/18 19:59 12/28/17 07:14 100 MG Polyethylene (Miralax Powder Packet) 17 gm DAILY PRN PO 12/27/17 19:15 01/26/18 19:14 Amlodipine Besylate (Norvasc Tab) 5 mg QAM PO 12/28/17 10:00 01/27/18 09:59 12/28/17 10:47 5 MG Tramadol HCl (Ultram Tab) 50 mg Q4H PRN PO 12/28/17 10:45 01/27/18 10:44 Objective Vital Signs Date Time Temp Pulse Resp B/P (MAP) Pulse Ox O2 Delivery O2 Flow Rate FiO2 12/29/17 16:00 36.6 78 20 149/79 (102) 95 Room Air 12/29/17 07:30 Room Air 12/29/17 00:00 94 Room Air 12/28/17 23:10 36.7 66 20 136/73 (94) 92 Room Air 12/28/17 20:00 94 Room Air 12/28/17 19:52 70 22 150/81 (104) 94 Room Air Physical Exam General Appearance: WD/WN, no apparent distress ENT: hearing grossly normal, pharynx normal Neck: supple, no carotid bruits, trachea midline Respiratory/Chest: lungs clear, no respiratory distress, no accessory muscle use, + pertinent finding (Dialysis port underneath R clavicle, without any surrounding erythema) Cardiovascular: regular rate, rhythm, no edema, no murmur Abdomen: normal bowel sounds, soft, + tenderness (mild epigastric tenderness) Extremities: non-tender, no pedal edema, no calf tenderness Neurologic/Psychiatric: alert, normal mood/affect, oriented x 3 Skin: normal color, warm/dry, no rash Laboratory Results Results Past 24 Hours Test 12/29/17 05:34 Range/Units White Blood Count 5.11 4.8-10.8 K/uL Red Blood Count 3.83 4.7-6.1 M/uL Hemoglobin 11.1 14.0-18.0 g/dL Hematocrit 33.6 42-52 % Mean Corpuscular Volume 87.7 80-100 fL Mean Corpuscular Hemoglobin 29.0 25-34 pg Mean Corpuscular Hemoglobin Concent 33.0 32-36 g/dl Platelet Count 178 130-400 K/uL Mean Platelet Volume 10.0 7.4-10.4 fL Neutrophils (%) (Auto) 63.6 % Lymphocytes (%) (Auto) 25.4 % Monocytes (%) (Auto) 8.0 % Eosinophils (%) (Auto) 1.8 % Basophils (%) (Auto) 0.2 % Neutrophils # (Auto) 3.25 1.4-6.5 K/uL Lymphocytes # (Auto) 1.30 1.2-3.4 K/uL Monocytes # (Auto) 0.41 0.11-0.59 K/uL Eosinophils # (Auto) 0.09 0-0.5 K/uL Basophils # (Auto) 0.01 0-0.2 K/uL RDW Standard Deviation 44.4 36.4-46.3 fL RDW Coefficient of Variation 13.8 11.5-14.5 % Immature Granulocyte % (Auto) 1.0 % Immature Granulocyte # (Auto) 0.05 0.00-0.02 K/uL Prothrombin Time 11.9 9.0-12.0 SECONDS Prothromb Time International Ratio 1.1 0.9-1.1 Sodium Level 137 136-145 mmol/L Potassium Level 4.6 3.5-5.1 mmol/L Chloride Level 102 98-107 mmol/L Carbon Dioxide Level 27 21-32 mmol/L Anion Gap 8.0 3-11 mmol/L Blood Urea Nitrogen 59 7-18 mg/dl Creatinine 5.29 0.60-1.40 mg/dl Est Creatinine Clear Calc Drug Dose 13.5 ml/min Estimated GFR () 11.3 Estimated GFR (Non- 9.8 BUN/Creatinine Ratio 11.0 10-20 Random Glucose 98 70-99 mg/dl Calcium Level 8.1 8.5-10.1 mg/dl Assessment and Plan 77 yo M presenting to us with severe renal failure possibly secondary to dehydration, viral process or bacterial infection, or an autoimmune process. GRISELDA - Baseline Cr is approx 1.4-1.5. IVF with NSS initially. Creatinine 5.29 today - Nephrology consulted, rec appreciated. s/p emergent permcath insertion for uremic symptoms. Renal U/S: No hydronephrosis. Bilateral renal cysts. FeNa 1.6% (ATN/intrinsic) - Multiple Myeloma and rheumatology labs ordered and pending - Went to [place] for biopsy today - I&O and daily weight (adequate urine output today, no recorded in chart due to travel to [place]) - Trend BMP Myalgias/ erythematous rash - ID consulted, recs appreciated. Flu neg, lyme neg. Echo: LV systolic function is normal. Grade I diastolic dysfunction. Borderline left atrial enlargement. Inferior vena cava is mildly dilated. No obvious valvular lesions suggestive of endocarditis - EBV IgG high, otherwise other immunoglobulins as well as CMV and parvovirus WNL. - Given Rocephin 2 G IV daily x2, blood and urine cultures negative Evidence of inflammation - ESR >90, CRP ~27 - Rheumatology labs ordered and pending (concern for ANCA disease) Thrombocytopenia - possibly secondary to uremia -platelets 178 this morning - ASA held because of low platelets HTN - Lisinopril held - Continue terazosin and amlodipine Gout - Allopurinol held because of Cr GERD - Omeprazole 20 mg - Order zantac Once Constipation - ordered miralax, colace, prune juice. Follow. DVT Prophylaxis - SCD Continued [facility] stay due to: multiple IV medications needed Discharge planning: home History Resident Physician Supervision Note: I was present with Dr. San during the history and exam. I discussed the case with the resident and agree with the findings and plan as documented in the note. Any exceptions or clarifications are listed here. Pt restin in bed after [place] [facility]. Presently reports mild aching epigastric pain which radiates locally, h/o similar episodes in the past c/w gastritis. General Appearance: WD/WN, no apparent distress Respiratory: chest non-tender, lungs clear, normal breath sounds, no respiratory distress Cardiovascular: normal peripheral pulses, regular rate, rhythm, no murmur Gastrointestinal: normal bowel sounds, soft, no organomegaly, tenderness ( epigastric, mild) Assessment/Plan 77 y/o male h/o HTN, gout p/w new onset ARF of unknown etiology ARF - s/p renal biopsy, nephrology consultation - monitor Cr. Guidance per nephrology based on improvement trend tomorrow re: dialysis Myalgias/erythematous rash - infectious disease consultation - as above Elevated inflammatory markers - f/u rheumatologic work up
[2017-12-29 06:51] LABS: CALCIUM 8.1 mg/dl (8.5-10.1); CREATININE 5.29 mg/dl (0.60-1.40); POTASSIUM 4.6 mmol/L (3.5-5.1)
[2017-12-29] MEDS: ONDANSETRON INJ 2 MG/ML 2 ML VIAL IV PRN ×2 (07:25→20:41)
[2017-12-29] MEDS: CALCIUM 600MG + VIT D 400 IU TAB PO SCH (07:45)
[2017-12-29] MEDS: PANTOprazole SOD 40 MG TAB PO SCH (07:45)
[2017-12-29] MEDS: CEROVITE ADV FORMULA TAB PO SCH (07:45)
[2017-12-29] MEDS: DOCUSATE SODIUM 100 MG CAP PO SCH ×2 (07:45→20:37)
[2017-12-29] MEDS: AMLODIPINE BESYLATE 5 MG TAB PO SCH (07:45)
[2017-12-29] MEDS ORDERED: RANITIDINE HCL 150 MG TAB PO ONE (17:00)
--- NOTE | 2017-12-29 18:19 | Nephrology Progress Note ---
Nephrology Progress Note Date of Service Dec 29, 2017. Chief Complaint GRISELDA Subjective No events overnight. Percutaneous [place] [facility] Frantz denies any acute complaints. He tolerated the procedure well. Urine is clear and without clot. He denies significant pain. No fevers or chills. Review of Systems A complete review of systems was performed. Pertinent positives are noted above. All other systems are negative. Vital Signs Last 8 Hrs Date Time Temp Pulse Resp B/P (MAP) Pulse Ox O2 Delivery O2 Flow Rate FiO2 12/29/17 17:01 36.6 71 20 148/82 (104) 95 Room Air 12/29/17 16:00 Room Air 12/29/17 16:00 36.6 78 20 149/79 (102) 95 Room Air 12/29/17 15:30 36.9 84 16 154/86 (108) 95 Room Air Last Recorded Weight Weight (Kilograms): 88.400 Physical Exam General Appearance: WD/WN, no apparent distress Head: normocephalic, atraumatic Eyes: normal inspection, sclerae normal ENT: normal ENT inspection, pharynx normal Neck: supple, no JVD Respiratory/Chest: lungs clear, no respiratory distress, no accessory muscle use Cardiovascular: regular rate, rhythm, no gallop Back: normal inspection Abdomen/GI: non tender, soft Extremities/Musculoskelatal: normal inspection, no pedal edema Neurologic/Psych: alert, normal mood/affect Family History Patient reports no known family medical history. Patient could not remember much detail but denied any family history of chronic kidney disease or end-stage renal disease. Social History Smokeless Tobacco Use: No Alcohol Use: none Drug Use: none Marital Status: Housing Status: lives with family Occupation: employed Laboratory Results Past 24 Hours 12/29/17 05:34 Red Blood Count 3.83, Mean Corpuscular Volume 87.7, Mean Corpuscular Hemoglobin 29.0, Mean Corpuscular Hemoglobin Concent 33.0, Mean Platelet Volume 10.0, Neutrophils (%) (Auto) 63.6, Lymphocytes (%) (Auto) 25.4, Monocytes (%) (Auto) 8.0, Eosinophils (%) (Auto) 1.8, Basophils (%) (Auto) 0.2, Neutrophils # (Auto) 3.25, Lymphocytes # (Auto) 1.30, Monocytes # (Auto) 0.41, Eosinophils # (Auto) 0.09, Basophils # (Auto) 0.01 12/29/17 05:34 Test 12/29/17 05:34 White Blood Count 5.11 K/uL (4.8-10.8) Red Blood Count 3.83 M/uL (4.7-6.1) Hemoglobin 11.1 g/dL (14.0-18.0) Hematocrit 33.6 % (42-52) Mean Corpuscular Volume 87.7 fL (80-100) Mean Corpuscular Hemoglobin 29.0 pg (25-34) Mean Corpuscular Hemoglobin Concent 33.0 g/dl (32-36) Platelet Count 178 K/uL (130-400) Mean Platelet Volume 10.0 fL (7.4-10.4) Neutrophils (%) (Auto) 63.6 % Lymphocytes (%) (Auto) 25.4 % Monocytes (%) (Auto) 8.0 % Eosinophils (%) (Auto) 1.8 % Basophils (%) (Auto) 0.2 % Neutrophils # (Auto) 3.25 K/uL (1.4-6.5) Lymphocytes # (Auto) 1.30 K/uL (1.2-3.4) Monocytes # (Auto) 0.41 K/uL (0.11-0.59) Eosinophils # (Auto) 0.09 K/uL (0-0.5) Basophils # (Auto) 0.01 K/uL (0-0.2) RDW Standard Deviation 44.4 fL (36.4-46.3) RDW Coefficient of Variation 13.8 % (11.5-14.5) Immature Granulocyte % (Auto) 1.0 % Immature Granulocyte # (Auto) 0.05 K/uL (0.00-0.02) Prothrombin Time 11.9 SECONDS (9.0-12.0) Prothromb Time International Ratio 1.1 (0.9-1.1) Anion Gap 8.0 mmol/L (3-11) Est Creatinine Clear Calc Drug Dose 13.5 ml/min Estimated GFR () 11.3 Estimated GFR (Non- 9.8 BUN/Creatinine Ratio 11.0 (10-20) Calcium Level 8.1 mg/dl (8.5-10.1) Allergies Coded Allergies: No Known Allergies (Verified , 11/30/15) Medications Current Inpatient Medications Medications (Trade) Dose Ordered Sig/Nahomy Route Start Time Stop Time Status Last Admin Dose Admin Acetaminophen (Tylenol Tab) 650 mg Q4H PRN PO 12/23/17 23:45 01/22/18 23:44 12/26/17 23:45 650 MG Clotrimazole (Mycelex 10MG Itzel) 1 itzel 5XDQ4H SUMAN 12/24/17 07:00 01/03/18 06:59 12/28/17 18:39 1 ITZEL Terazosin HCl (Hytrin Cap) 5 mg HS PO 12/24/17 21:00 01/23/18 20:59 12/28/17 19:49 5 MG Calcium/Vitamin D (Caltrate Plus Tab) 1 tab QAM PO 12/24/17 09:00 01/23/18 08:59 12/28/17 07:14 1 TAB Multivitamins/ Minerals (Multivitamin W/ Minerals Tab) 1 tab QAM PO 12/24/17 09:00 01/23/18 08:59 12/28/17 07:14 1 TAB Pantoprazole Sodium (Protonix Tab) 40 mg QAM PO 12/24/17 09:00 01/23/18 08:59 12/28/17 07:13 40 MG Fluconazole (Consult) 1 ea UD PRN N/A 12/24/17 05:00 01/23/18 04:59 Tamsulosin HCl (Flomax Cap) 0.4 mg HS PO 12/24/17 21:00 01/23/18 20:59 12/28/17 19:49 0.4 MG Ondansetron HCl (Zofran Inj) 4 mg Q4H PRN IV 12/25/17 10:00 01/24/18 09:59 12/29/17 07:25 4 MG Promethazine HCl (Phenergan Inj) 12.5 mg Q6 PRN IM 12/25/17 13:30 01/24/18 09:59 Fluconazole (Diflucan Tab) 100 mg DAILY@2100 PO 12/26/17 21:00 01/01/18 21:01 12/28/17 19:49 100 MG Docusate Sodium (coLACE CAP) 100 mg BID PO 12/27/17 20:00 01/26/18 19:59 12/28/17 07:14 100 MG Polyethylene (Miralax Powder Packet) 17 gm DAILY PRN PO 12/27/17 19:15 01/26/18 19:14 Amlodipine Besylate (Norvasc Tab) 5 mg QAM PO 12/28/17 10:00 01/27/18 09:59 12/28/17 10:47 5 MG Tramadol HCl (Ultram Tab) 50 mg Q4H PRN PO 12/28/17 10:45 01/27/18 10:44 Impression (1) GRISELDA (acute kidney injury) (2) Anemia (3) Thrombocytopenia (4) Hyperkalemia (5) Metabolic acidosis Frantz is a 77-year-old male the with hypertension, gout and chronic NSAID use who was admitted with fatigue, generalized malaise, anorexia and oliguria. He was admitted with acute kidney injury, creatinine 10.8. Creatinine was 1.5 mg/ dL in 2014. Hyperkalemia and metabolic acidosis also present on admission. GRISELDA attributed to NSAID and KHOA use in the setting of hypotension. There was no improvement with IVF. UA acellular with granular cast consistent with ATN. Renal US documented 12.3 cm right kidney and 10.9 cm left kidney. A 3 cm cyst was appreciated in the upper pole of the right kidney and a 1.2 cm left kidney lower pole cyst. Changes suggestive of chronic bladder outlet obstruction suggested. No renovascular studies. Presenting laboratory findings on admission also notable for thrombocytopenia. This is improving. Mild anemia is stable. Started on HD on 12/24/17. Kidney biopsy obtained today; results pending. Recommendations -- Biopsy results pending -- Assistance from SW/CC has been requested to arrange outpatient HD at [facility] under the care of Dr. Mckenna -- Repeat CBC and renal profile tomorrow AM -- Renal diet -- Line care per protocol -- Medications are currently appropriately dosed for renal function - Avoid NSAIDs, hold KHOA
[2017-12-29] MEDS: TAMSULOSIN HCL 0.4 MG CAP PO SCH (20:37)
[2017-12-29] MEDS: FLUCONAZOLE 100 MG TAB PO SCH (20:38)
[2017-12-30 03:36] VITALS: BP 150/75; PULSE 62; TEMP 36.7; O2SAT 93
[2017-12-30 05:57] LABS: HEMATOCRIT 32.1 % (42-52); HEMOGLOBIN 11.1 g/dL (14.0-18.0); MEAN CELL VOLUME 88.2 fL (80-100); MEAN CORPUSCULAR HEMOGLOBIN 30.5 pg (25-34); MEAN CORPUSCULAR HGB CONC 34.6 g/dl (32-36); MEAN PLATELET VOLUME 9.6 fL (7.4-10.4); PLATELET COUNT 201 K/uL (130-400); RED CELL DISTRIBUTION WIDTH CV 13.6 % (11.5-14.5); RED CELL DISTRIBUTION WIDTH SD 44.1 fL (36.4-46.3); WHITE BLOOD COUNT 4.98 K/uL (4.8-10.8)
[2017-12-30] MEDS: CLOTRIMAZOLE 10 MG TROCHE LOZ SCH ×5 (06:24→20:54)
[2017-12-30 06:52] LABS: ALBUMIN 2.4 gm/dl (3.4-5.0); CREATININE 4.88 mg/dl (0.60-1.40); POTASSIUM 5.1 mmol/L (3.5-5.1); TOTAL PROTEIN 6.4 gm/dl (6.4-8.2)
[2017-12-30 07:55] VITALS: BP 158/89; PULSE 79; TEMP 37.1; O2SAT 96
[2017-12-30 08:00] VITALS: O2SAT 96
--- NOTE | 2017-12-30 09:37 | Nephrology Progress Note ---
Nephrology Progress Note Date of Service Dec 30, 2017. Chief Complaint GRISELDA Subjective No acute events overnight. Frantz feels well this morning. He denies pain. Only mild discomfort around the biopsy site. Urine is clear. Frantz denies shortness of breath. Appetite is good. No nausea. No fevers or chills. He is ambulating in his hospital room to the bathroom. Review of Systems A complete review of systems was performed. Pertinent positives are noted above. All other systems are negative. Vital Signs Last 8 Hrs Date Time Temp Pulse Resp B/P (MAP) Pulse Ox O2 Delivery O2 Flow Rate FiO2 12/30/17 07:58 Room Air 12/30/17 07:55 37.1 79 20 158/89 (112) 96 Room Air 12/30/17 03:36 36.7 62 18 150/75 (100) 93 Room Air Last Recorded Weight Weight (Kilograms): 87.900 Physical Exam General Appearance: WD/WN, no apparent distress Head: normocephalic, atraumatic Eyes: normal inspection, sclerae normal ENT: normal ENT inspection, pharynx normal Neck: supple, no JVD, + pertinent finding (RIJ TDC intact) Respiratory/Chest: lungs clear, no respiratory distress, no accessory muscle use Cardiovascular: regular rate, rhythm, no gallop Back: no CVA tenderness Abdomen/GI: non tender, soft Extremities/Musculoskelatal: normal inspection, no pedal edema Neurologic/Psych: alert, normal mood/affect Family History Patient reports no known family medical history. Patient could not remember much detail but denied any family history of chronic kidney disease or end-stage renal disease. Social History Smokeless Tobacco Use: No Alcohol Use: none Drug Use: none Marital Status: Housing Status: lives with family Occupation: employed Laboratory Results Past 24 Hours 12/30/17 05:43 12/30/17 05:43 Test 12/30/17 05:43 Red Blood Count 3.64 M/uL (4.7-6.1) Mean Corpuscular Volume 88.2 fL (80-100) Mean Corpuscular Hemoglobin 30.5 pg (25-34) Mean Corpuscular Hemoglobin Concent 34.6 g/dl (32-36) RDW Standard Deviation 44.1 fL (36.4-46.3) RDW Coefficient of Variation 13.6 % (11.5-14.5) Mean Platelet Volume 9.6 fL (7.4-10.4) Erythrocyte Sedimentation Rate 43 mm/hr (0-14) Anion Gap 5.0 mmol/L (3-11) Est Creatinine Clear Calc Drug Dose 14.6 ml/min Estimated GFR () 12.5 Estimated GFR (Non- 10.8 BUN/Creatinine Ratio 12.8 (10-20) Calcium Level 8.0 mg/dl (8.5-10.1) Phosphorus Level 5.0 mg/dl (2.5-4.9) Total Bilirubin 0.7 mg/dl (0.2-1) Aspartate Amino Transf (AST/SGOT) 56 U/L (15-37) Alanine Aminotransferase (ALT/SGPT) 41 U/L (12-78) Alkaline Phosphatase 184 U/L (45-117) Total Protein 6.4 gm/dl (6.4-8.2) Albumin 2.4 gm/dl (3.4-5.0) Globulin 4.0 gm/dl (2.5-4.0) Albumin/Globulin Ratio 0.6 (0.9-2) Chemistry Specimen Hemolysis Allergies Coded Allergies: No Known Allergies (Verified , 11/30/15) Medications Current Inpatient Medications Medications (Trade) Dose Ordered Sig/Nahomy Route Start Time Stop Time Status Last Admin Dose Admin Acetaminophen (Tylenol Tab) 650 mg Q4H PRN PO 12/23/17 23:45 01/22/18 23:44 12/26/17 23:45 650 MG Clotrimazole (Mycelex 10MG Itzel) 1 itzel 5XDQ4H SUMAN 12/24/17 07:00 01/03/18 06:59 12/28/17 18:39 1 ITZEL Terazosin HCl (Hytrin Cap) 5 mg HS PO 12/24/17 21:00 01/23/18 20:59 12/29/17 20:38 5 MG Calcium/Vitamin D (Caltrate Plus Tab) 1 tab QAM PO 12/24/17 09:00 01/23/18 08:59 12/28/17 07:14 1 TAB Multivitamins/ Minerals (Multivitamin W/ Minerals Tab) 1 tab QAM PO 12/24/17 09:00 01/23/18 08:59 12/28/17 07:14 1 TAB Pantoprazole Sodium (Protonix Tab) 40 mg QAM PO 12/24/17 09:00 01/23/18 08:59 12/28/17 07:13 40 MG Fluconazole (Consult) 1 ea UD PRN N/A 12/24/17 05:00 01/23/18 04:59 Tamsulosin HCl (Flomax Cap) 0.4 mg HS PO 12/24/17 21:00 01/23/18 20:59 12/29/17 20:37 0.4 MG Ondansetron HCl (Zofran Inj) 4 mg Q4H PRN IV 12/25/17 10:00 01/24/18 09:59 12/29/17 20:41 4 MG Promethazine HCl (Phenergan Inj) 12.5 mg Q6 PRN IM 12/25/17 13:30 01/24/18 09:59 Fluconazole (Diflucan Tab) 100 mg DAILY@2100 PO 12/26/17 21:00 01/01/18 21:01 12/29/17 20:38 100 MG Docusate Sodium (coLACE CAP) 100 mg BID PO 12/27/17 20:00 01/26/18 19:59 12/29/17 20:37 100 MG Polyethylene (Miralax Powder Packet) 17 gm DAILY PRN PO 12/27/17 19:15 01/26/18 19:14 Amlodipine Besylate (Norvasc Tab) 5 mg QAM PO 12/28/17 10:00 01/27/18 09:59 12/28/17 10:47 5 MG Tramadol HCl (Ultram Tab) 50 mg Q4H PRN PO 12/28/17 10:45 01/27/18 10:44 Impression (1) GRISELDA (acute kidney injury) (2) Anemia (3) Thrombocytopenia (4) Hyperkalemia (5) Metabolic acidosis Frantz is a 77-year-old male the with hypertension, gout and chronic NSAID use who presented with fatigue, generalized malaise, anorexia and oliguria. He was admitted with acute kidney injury, creatinine 10.8. Creatinine was 1.5 mg/dL in 2014. Hyperkalemia and metabolic acidosis also present on admission. GRISELDA attributed to NSAID and KHOA use in the setting of hypotension. There was no improvement with IVF. UA acellular with granular cast consistent with ATN. Renal US documented 12.3 cm right kidney and 10.9 cm left kidney. no renovascular imaging. A 3 cm cyst was appreciated in the upper pole of the right kidney and a 1.2 cm left kidney lower pole cyst. Changes suggestive of chronic bladder outlet obstruction also suggested. Patient denies significant LUTs. Presenting laboratory findings on admission were also notable for thrombocytopenia. This is improving. Mild anemia is stable. Started on HD on 12/24/17. Kidney biopsy obtained 12/29/16; results pending. Recommendations -- Obtain prelim biopsy results today -- Creatinine showing early evidence of renal recovery -- Metabolic profile otherwise acceptable -- No need for HD today, will hold and continue to monitor for renal recovery -- Assistance from SW/CC has been requested to arrange outpatient HD at [facility] under the care of Dr. Mckenna -- If creatinine continues to improve, patient may be discharged with line care and close follow up with Dr. Mckenna in the CKD clinic -- Repeat CBC and renal profile tomorrow AM -- Renal diet -- Line care per protocol -- Medications are currently appropriately dosed for renal function - Avoid NSAIDs, hold KHOA
[2017-12-30] MEDS: AMLODIPINE BESYLATE 5 MG TAB PO SCH (10:15)
[2017-12-30] MEDS: DOCUSATE SODIUM 100 MG CAP PO SCH ×2 (10:15→20:52)
[2017-12-30] MEDS: CEROVITE ADV FORMULA TAB PO SCH (10:16)
[2017-12-30] MEDS: CALCIUM 600MG + VIT D 400 IU TAB PO SCH (10:16)
[2017-12-30] MEDS: PANTOprazole SOD 40 MG TAB PO SCH (10:17)
[2017-12-30] MEDS ORDERED: RANITIDINE HCL 150 MG TAB PO ONE (11:37)
--- NOTE | 2017-12-30 11:37 | Family Medicine Progress Note ---
Progress Note Date of Service Dec 30, 2017. Subjective Pt evaluation today including: conversation w/ patient, physical exam, chart review, review of studies, conversation w/ client consultant, review of inpatient medication list Pain: none PO Intake: adequate Voiding: no voiding problems Patient feeling well Still with mild abdominal discomfort Feeling fatigued and wants a solid plan set up before being discharged Awaiting plan per nephro Constitutional: No fever, No chills Respiratory: No cough, No sputum Cardiovascular: No chest pain, No edema Abdomen: + pain, + nausea, No vomiting, No diarrhea, No constipation Male : No dysuria, No urinary frequency, No hematuria Endo: + fatigue Skin: No rash, No itch Medications Current Inpatient Medications Medications (Trade) Dose Ordered Sig/Nahomy Route Start Time Stop Time Status Last Admin Dose Admin Acetaminophen (Tylenol Tab) 650 mg Q4H PRN PO 12/23/17 23:45 01/22/18 23:44 12/26/17 23:45 650 MG Clotrimazole (Mycelex 10MG Itzel) 1 itzel 5XDQ4H SUMAN 12/24/17 07:00 01/03/18 06:59 12/28/17 18:39 1 ITZEL Terazosin HCl (Hytrin Cap) 5 mg HS PO 12/24/17 21:00 01/23/18 20:59 12/29/17 20:38 5 MG Calcium/Vitamin D (Caltrate Plus Tab) 1 tab QAM PO 12/24/17 09:00 01/23/18 08:59 12/30/17 10:16 1 TAB Multivitamins/ Minerals (Multivitamin W/ Minerals Tab) 1 tab QAM PO 12/24/17 09:00 01/23/18 08:59 12/30/17 10:16 1 TAB Pantoprazole Sodium (Protonix Tab) 40 mg QAM PO 12/24/17 09:00 01/23/18 08:59 12/30/17 10:17 40 MG Fluconazole (Consult) 1 ea UD PRN N/A 12/24/17 05:00 01/23/18 04:59 Tamsulosin HCl (Flomax Cap) 0.4 mg HS PO 12/24/17 21:00 01/23/18 20:59 12/29/17 20:37 0.4 MG Ondansetron HCl (Zofran Inj) 4 mg Q4H PRN IV 12/25/17 10:00 01/24/18 09:59 12/29/17 20:41 4 MG Promethazine HCl (Phenergan Inj) 12.5 mg Q6 PRN IM 12/25/17 13:30 01/24/18 09:59 Fluconazole (Diflucan Tab) 100 mg DAILY@2100 PO 12/26/17 21:00 01/01/18 21:01 12/29/17 20:38 100 MG Docusate Sodium (coLACE CAP) 100 mg BID PO 12/27/17 20:00 01/26/18 19:59 12/30/17 10:15 100 MG Polyethylene (Miralax Powder Packet) 17 gm DAILY PRN PO 12/27/17 19:15 01/26/18 19:14 Amlodipine Besylate (Norvasc Tab) 5 mg QAM PO 12/28/17 10:00 01/27/18 09:59 12/30/17 10:15 5 MG Tramadol HCl (Ultram Tab) 50 mg Q4H PRN PO 12/28/17 10:45 01/27/18 10:44 Objective Vital Signs Date Time Temp Pulse Resp B/P (MAP) Pulse Ox O2 Delivery O2 Flow Rate FiO2 12/30/17 07:58 Room Air 12/30/17 07:55 37.1 79 20 158/89 (112) 96 Room Air 12/30/17 03:36 36.7 62 18 150/75 (100) 93 Room Air 12/30/17 00:15 Room Air 12/29/17 22:56 36.5 68 18 146/78 (100) 94 Room Air 12/29/17 22:12 36.8 71 16 148/73 (98) 95 Room Air 12/29/17 20:35 76 144/79 (100) 12/29/17 18:07 36.5 74 20 162/82 (108) 96 Room Air 12/29/17 17:01 36.6 71 20 148/82 (104) 95 Room Air 12/29/17 16:00 Room Air 12/29/17 16:00 36.6 78 20 149/79 (102) 95 Room Air 12/29/17 15:30 36.9 84 16 154/86 (108) 95 Room Air Physical Exam General Appearance: WD/WN, no apparent distress Neck: no adenopathy, no JVD, no carotid bruits, trachea midline Respiratory/Chest: lungs clear, no respiratory distress, no accessory muscle use, + pertinent finding (dialysis port under R clavicle, clean and without any surrounding erythema) Cardiovascular: regular rate, rhythm, no edema, no murmur Abdomen: normal bowel sounds, soft, + tenderness (umbilical and epigastric tenderness) Extremities: non-tender, no pedal edema, no calf tenderness Neurologic/Psychiatric: alert, normal mood/affect, oriented x 3 Laboratory Results Results Past 24 Hours Test 12/30/17 05:43 Range/Units White Blood Count 4.98 4.8-10.8 K/uL Red Blood Count 3.64 4.7-6.1 M/uL Hemoglobin 11.1 14.0-18.0 g/dL Hematocrit 32.1 42-52 % Mean Corpuscular Volume 88.2 80-100 fL Mean Corpuscular Hemoglobin 30.5 25-34 pg Mean Corpuscular Hemoglobin Concent 34.6 32-36 g/dl RDW Standard Deviation 44.1 36.4-46.3 fL RDW Coefficient of Variation 13.6 11.5-14.5 % Platelet Count 201 130-400 K/uL Mean Platelet Volume 9.6 7.4-10.4 fL Erythrocyte Sedimentation Rate 43 0-14 mm/hr Sodium Level 138 136-145 mmol/L Potassium Level 5.1 3.5-5.1 mmol/L Chloride Level 104 98-107 mmol/L Carbon Dioxide Level 29 21-32 mmol/L Anion Gap 5.0 3-11 mmol/L Blood Urea Nitrogen 62 7-18 mg/dl Creatinine 4.88 0.60-1.40 mg/dl Est Creatinine Clear Calc Drug Dose 14.6 ml/min Estimated GFR () 12.5 Estimated GFR (Non- 10.8 BUN/Creatinine Ratio 12.8 10-20 Random Glucose 92 70-99 mg/dl Calcium Level 8.0 8.5-10.1 mg/dl Phosphorus Level 5.0 2.5-4.9 mg/dl Total Bilirubin 0.7 0.2-1 mg/dl Aspartate Amino Transf (AST/SGOT) 56 15-37 U/L Alanine Aminotransferase (ALT/SGPT) 41 12-78 U/L Alkaline Phosphatase 184 45-117 U/L Total Protein 6.4 6.4-8.2 gm/dl Albumin 2.4 3.4-5.0 gm/dl Globulin 4.0 2.5-4.0 gm/dl Albumin/Globulin Ratio 0.6 0.9-2 Chemistry Specimen Hemolysis Assessment and Plan 77 yo M presenting to us with acute renal failure of unknown cause GRISELDA - Baseline Cr is approx 1.4-1.5. IVF with NSS initially. Creatinine improved to 4.88 today. UO of 750 so far today - Nephrology consulted, plan to watch renal function overnight and discharge in AM with follow up with Dr. Mckenna and [facility] [place] [facility]. May need Dialysis pending kidney function - Multiple Myeloma and rheumatology labs ordered and pending - Went to [place] for biopsy yesterday - I&O and daily weight (adequate urine output today, no recorded in chart due to travel to [place]) - Trend BMP in the AM Myalgias/ erythematous rash - ID consulted, recs appreciated. Flu neg, lyme neg. Echo: LV systolic function is normal. Grade I diastolic dysfunction. Borderline left atrial enlargement. Inferior vena cava is mildly dilated. No obvious valvular lesions suggestive of endocarditis - EBV IgG high, otherwise other immunoglobulins as well as CMV and parvovirus WNL. - Given Rocephin 2 G IV daily x2, blood and urine cultures negative Evidence of inflammation - ESR >90 ---> 43 today - Rheumatology labs ordered and pending (concern for ANCA disease) Thrombocytopenia - possibly secondary to uremia -platelets 201 this morning - ASA held because of low platelets HTN - Lisinopril held - Continue terazosin and amlodipine Gout - Allopurinol held because of Cr GERD - Omeprazole 20 mg - Order zantac bid Constipation - ordered miralax, colace, prune juice. Follow. DVT Prophylaxis - SCD Continued [facility] stay due to: monitor renal function History Resident Physician Supervision Note: I was present with Dr. San during the history and exam. I discussed the case with the resident and agree with the findings and plan as documented in the note. Any exceptions or clarifications are listed here. Pt reports epigastric pain is more mild and more diffuse but still improved with ranitidine. Urinating well without discomfort. General Appearance: WD/WN, no apparent distress Respiratory: chest non-tender, lungs clear, normal breath sounds, no respiratory distress Cardiovascular: normal peripheral pulses, regular rate, rhythm, no murmur Gastrointestinal: normal bowel sounds, soft, no organomegaly, tenderness ( predominant epigastric) Assessment/Plan 77 y/o male h/o HTN, gout p/w new onset ARF ARF - s/p renal biopsy, nephrology consultation - monitor Cr. Guidance per nephrology based on improvement trend tomorrow re: dialysis Epigastric pain in the setting of reported chronic gastritis - standing H2 estefania regimen and reassess for impact Myalgias/erythematous rash - infectious disease consultation - as above Elevated inflammatory markers - RF elevated, ROULA, ANCA unremarkable
[2017-12-30] MEDS ORDERED: NRV5 PO (11:40)
[2017-12-30] MEDS ORDERED: FLM4 PO (11:40)
[2017-12-30] MEDS ORDERED: CLC100 PO (11:40)
--- NOTE | 2017-12-30 11:45 | Discharge Instructions ---
Discharge Instructions Date of Service Dec 30, 2017. Admission Reason for Admission: Braden, Hyperkalemia Discharge Discharge Diagnosis / Problem: Acute Kidney Failure Discharge Goals Goal(s): Decrease discomfort, Improve function Activity Recommendations Activity Limitations: per Instructions/Follow-up section . Instructions / Follow-Up Instructions / Follow-Up Acute Kidney Injury- you were found to have acute renal failure. We set you up to get dialysis while you were in the hospital. and sent you for a biopsy to aid in our diagnosis. We will be setting up a nurse to come to your home to change the dressing on your port. Your kidneys have been recovering and as of right now you will not need dialysis as an outpatient. You will need to follow up with Dr. Mckenna as an outpatient in the next few days (friday) Please avoid any medications that may damage your kidneys. (naproxen, ibuprofen, allopurinol ) That includes stopping some of the medications you were on before coming to the hospital. Continue to drink plenty of fluids. If you experiences any worsening fatigue, abdominal pain or blood in your urine then please come back to the emergency department. For pain after working you can take tylenol 500mg ( 2 tablets). Current Hospital Diet Patient's current hospital diet: Renal Diet Discharge Diet Recommended Diet: Renal Diet Procedures Procedures Performed: Insertion of right internal jugular vein permcath Usn localization of right internal jugular vein Fluoro for postioning Pending Studies Studies pending at discharge: yes List of pending studies: Rheumatology lab work and infectious lab work - follow up results with Dr. Mckenna Laboratory Results Hemoglobin A1c Test 12/24/17 05:26 Range/Units Estimated Average Glucose 108 mg/dl Hemoglobin A1c 5.4 4.5-5.6 % Medical Emergencies . Who to Call and When: Medical Emergencies: If at any time you feel your situation is an emergency, please call 911 immediately. . Non-Emergent Contact Non-Emergency issues call your: Primary Care Provider, Territory Account Executive . . "Provider Documentation" section prepared by Abdirahman San. . VTE Core Measure Inpt VTE Proph given/why not?: SCD's
[2017-12-30] MEDS: ONDANSETRON INJ 2 MG/ML 2 ML VIAL IV PRN (14:06)
[2017-12-30 15:59] VITALS: BP 152/80; PULSE 68; TEMP 36.9; O2SAT 94
[2017-12-30 16:05] LABS: ANA SCREEN TC 249X NEGATIVE (NEGATIVE)
[2017-12-30] MEDS: FLUCONAZOLE 100 MG TAB PO SCH (20:52)
[2017-12-30] MEDS: TAMSULOSIN HCL 0.4 MG CAP PO SCH (20:53)
[2017-12-30 23:47] VITALS: BP 144/76; PULSE 66; TEMP 36.8; O2SAT 96
[2017-12-31] MEDS: CLOTRIMAZOLE 10 MG TROCHE LOZ SCH ×3 (06:06→14:40)
[2017-12-31 06:10] LABS: HEMATOCRIT 33.1 % (42-52); HEMOGLOBIN 11.1 g/dL (14.0-18.0); MEAN CELL VOLUME 88.5 fL (80-100); MEAN CORPUSCULAR HEMOGLOBIN 29.7 pg (25-34); MEAN CORPUSCULAR HGB CONC 33.5 g/dl (32-36); MEAN PLATELET VOLUME 9.7 fL (7.4-10.4); PLATELET COUNT 241 K/uL (130-400); RED CELL DISTRIBUTION WIDTH CV 13.7 % (11.5-14.5); RED CELL DISTRIBUTION WIDTH SD 44.4 fL (36.4-46.3); WHITE BLOOD COUNT 5.15 K/uL (4.8-10.8)
[2017-12-31 06:54] LABS: ALBUMIN 2.6 gm/dl (3.4-5.0); CALCIUM 8.2 mg/dl (8.5-10.1); CREATININE 4.29 mg/dl (0.60-1.40); POTASSIUM 4.6 mmol/L (3.5-5.1)
[2017-12-31 06:57] LABS: TOTAL PROTEIN 6.9 gm/dl (6.4-8.2)
[2017-12-31] MEDS ORDERED: RANITIDINE HCL 150 MG TAB PO SCH (08:00)
[2017-12-31 08:13] VITALS: BP 156/83; PULSE 75; TEMP 37; O2SAT 96
[2017-12-31] MEDS: CEROVITE ADV FORMULA TAB PO SCH (08:16)
[2017-12-31] MEDS: PANTOprazole SOD 40 MG TAB PO SCH (08:16)
[2017-12-31] MEDS: AMLODIPINE BESYLATE 5 MG TAB PO SCH (08:16)
[2017-12-31] MEDS: DOCUSATE SODIUM 100 MG CAP PO SCH (08:16)
[2017-12-31] MEDS: CALCIUM 600MG + VIT D 400 IU TAB PO SCH (08:17)
--- NOTE | 2017-12-31 10:33 | Nephrology Progress Note ---
Nephrology Progress Note Date of Service Dec 31, 2017. Chief Complaint GRISELDA Subjective No acute events overnight. No complaints this morning. Frantz feels well. He has been ambulating in the hospital room. He feels slightly weak. Mild chronic arthralgias. Appetite is good. No urinary complaints. No fevers or chills. Review of Systems A complete review of systems was performed. Pertinent positives are noted above. All other systems are negative. Vital Signs Last 8 Hrs Date Time Temp Pulse Resp B/P (MAP) Pulse Ox O2 Delivery O2 Flow Rate FiO2 12/31/17 08:13 37.0 75 16 156/83 (107) 96 Room Air Last Recorded Weight Weight (Kilograms): 87.200 Physical Exam General Appearance: WD/WN, no apparent distress Head: normocephalic, atraumatic Eyes: normal inspection, sclerae normal ENT: normal ENT inspection, pharynx normal Neck: supple, no JVD Respiratory/Chest: lungs clear, no respiratory distress, no accessory muscle use Cardiovascular: regular rate, rhythm, no gallop, no murmur Back: no CVA tenderness Abdomen/GI: non tender, soft Extremities/Musculoskelatal: normal inspection, no pedal edema Neurologic/Psych: alert, normal mood/affect Family History Patient reports no known family medical history. Patient could not remember much detail but denied any family history of chronic kidney disease or end-stage renal disease. Social History Smokeless Tobacco Use: No Alcohol Use: none Drug Use: none Marital Status: Housing Status: lives with family Occupation: employed Laboratory Results Past 24 Hours 12/31/17 05:50 12/31/17 05:50 Test 12/31/17 05:50 Red Blood Count 3.74 M/uL (4.7-6.1) Mean Corpuscular Volume 88.5 fL (80-100) Mean Corpuscular Hemoglobin 29.7 pg (25-34) Mean Corpuscular Hemoglobin Concent 33.5 g/dl (32-36) RDW Standard Deviation 44.4 fL (36.4-46.3) RDW Coefficient of Variation 13.7 % (11.5-14.5) Mean Platelet Volume 9.7 fL (7.4-10.4) Anion Gap 7.0 mmol/L (3-11) Est Creatinine Clear Calc Drug Dose 15.4 ml/min Estimated GFR () 14.6 Estimated GFR (Non- 12.6 BUN/Creatinine Ratio 15.0 (10-20) Calcium Level 8.2 mg/dl (8.5-10.1) Total Bilirubin 0.8 mg/dl (0.2-1) Aspartate Amino Transf (AST/SGOT) 41 U/L (15-37) Alanine Aminotransferase (ALT/SGPT) 41 U/L (12-78) Alkaline Phosphatase 181 U/L (45-117) Total Protein 6.9 gm/dl (6.4-8.2) Albumin 2.6 gm/dl (3.4-5.0) Globulin 4.3 gm/dl (2.5-4.0) Albumin/Globulin Ratio 0.6 (0.9-2) Allergies Coded Allergies: No Known Allergies (Verified , 11/30/15) Medications Current Inpatient Medications Medications (Trade) Dose Ordered Sig/Nahomy Route Start Time Stop Time Status Last Admin Dose Admin Acetaminophen (Tylenol Tab) 650 mg Q4H PRN PO 12/23/17 23:45 01/22/18 23:44 12/26/17 23:45 650 MG Clotrimazole (Mycelex 10MG Itzel) 1 itzel 5XDQ4H SUMAN 12/24/17 07:00 01/03/18 06:59 12/30/17 20:54 1 ITZEL Terazosin HCl (Hytrin Cap) 5 mg HS PO 12/24/17 21:00 01/23/18 20:59 12/30/17 20:54 5 MG Calcium/Vitamin D (Caltrate Plus Tab) 1 tab QAM PO 12/24/17 09:00 01/23/18 08:59 12/31/17 08:17 1 TAB Multivitamins/ Minerals (Multivitamin W/ Minerals Tab) 1 tab QAM PO 12/24/17 09:00 01/23/18 08:59 12/31/17 08:16 1 TAB Pantoprazole Sodium (Protonix Tab) 40 mg QAM PO 12/24/17 09:00 01/23/18 08:59 12/31/17 08:16 40 MG Fluconazole (Consult) 1 ea UD PRN N/A 12/24/17 05:00 01/23/18 04:59 Tamsulosin HCl (Flomax Cap) 0.4 mg HS PO 12/24/17 21:00 01/23/18 20:59 12/30/17 20:53 0.4 MG Ondansetron HCl (Zofran Inj) 4 mg Q4H PRN IV 12/25/17 10:00 01/24/18 09:59 12/30/17 14:06 4 MG Promethazine HCl (Phenergan Inj) 12.5 mg Q6 PRN IM 12/25/17 13:30 01/24/18 09:59 Fluconazole (Diflucan Tab) 100 mg DAILY@2100 PO 12/26/17 21:00 01/01/18 21:01 12/30/17 20:52 100 MG Docusate Sodium (coLACE CAP) 100 mg BID PO 12/27/17 20:00 01/26/18 19:59 12/31/17 08:16 100 MG Polyethylene (Miralax Powder Packet) 17 gm DAILY PRN PO 12/27/17 19:15 01/26/18 19:14 Amlodipine Besylate (Norvasc Tab) 5 mg QAM PO 12/28/17 10:00 01/27/18 09:59 12/31/17 08:16 5 MG Tramadol HCl (Ultram Tab) 50 mg Q4H PRN PO 12/28/17 10:45 01/27/18 10:44 Ranitidine HCl (zANTac TAB) 150 mg DAILY PO 12/31/17 08:00 01/30/18 07:59 12/31/17 08:16 150 MG Impression (1) GRISELDA (acute kidney injury) (2) Anemia (3) Thrombocytopenia (4) Hyperkalemia (5) Metabolic acidosis Frantz is a 77-year-old male the with hypertension, gout and chronic NSAID use who presented with fatigue, generalized malaise, anorexia and oliguria. He was admitted with acute kidney injury, creatinine 10.8. Creatinine was 1.5 mg/dL in 2015. Hyperkalemia and metabolic acidosis also present on admission. GRISELDA attributed to NSAID and KHOA use in the setting of hypotension. There was no improvement with IVF. UA acellular with granular cast consistent with ATN. Renal US documented 12.3 cm right kidney and 10.9 cm left kidney. no renovascular imaging. A 3 cm cyst was appreciated in the upper pole of the right kidney and a 1.2 cm left kidney lower pole cyst. Changes suggestive of chronic bladder outlet obstruction also suggested. Patient denies significant LUTs. Presenting laboratory findings on admission were also notable for thrombocytopenia. This is improving. Mild anemia is stable. Started on HD on 12/24/17. Kidney biopsy obtained 12/29/16; results pending. Recommendations -- Prelim biopsy results pending -- Creatinine continues to show evidence of renal recovery -- No need for additional CATALOG SPECIALIST/H at this time -- Metabolic profile otherwise acceptable -- Patient may be discharged with line care and close follow up with Dr. Mckenna in the CKD clinic (apt scheduled for Jan 05) -- Repeat metabolic profile has been requested for Friday (01/02): orders entered into outpatient EMR -- Renal diet and avoid NSAIDS -- Continue to hold KHOA
[2017-12-31 14:53] VITALS: BP 138/79; PULSE 65; TEMP 36.7; O2SAT 96
--- NOTE | 2017-12-31 18:31 | Discharge Summary ---
Discharge Summary Date of Service Dec 31, 2017. Discharge Summary Admission Date: Dec 23, 2017 at 23:43 Discharge Date: Dec 31, 2017 Discharge Disposition: Home Principal Diagnosis: Acute Renal Failure Immunizations: Have You Had Influenza Vaccine: Unknown History of Tetanus Vaccine?: Unknown History of Pneumococcal: Unknown History of Hepatitis B Vaccine: Unknown Consultations: Nephrology Medication Reconciliation New Medications: Amlodipine Besylate (Amlodipine Besylate) 5 Mg Tab 5 MG PO QAM for 14 Days, #14 TAB Docusate Sodium (Docusate Sodium) 100 Mg Cap 100 MG PO BID for 14 Days, #28 CAP Tamsulosin HCl (Tamsulosin HCl) 0.4 Mg Cap 0.4 MG PO HS for 14 Days, #14 CAP Continued Medications: Calcium Carbonate-Cholecalcife (Calcium 500-100 mg-Unit) 1 Chw Chw 1 TAB PO QAM Krill Oil (Krill Oil) 1 Cap Cap 1 CAP DAILY Multiple Vitamins W/ Minerals (Centrum Silver) 1 Chw Chw 1 TAB PO QAM Omeprazole (Prilosec) 20 Mg Capcr 20 MG PO QAM, CAP Terazosin Hcl (Hytrin) 5 Mg Cap 5 MG PO HS, CAP Discontinued Medications: Allopurinol (Allopurinol) 300 Mg Tab 300 MG PO QAM Aspirin (Aspirin Chewable) 81 Mg Chew 81 MG PO QAM Lisinopril (Zestril) 20 Mg Tab 20 MG PO DAILY, TAB Naproxen (Aleve) 220 Mg Tab 440 MG PO prn ud, TAB Discharge Exam Patient feeling well Still with mild abdominal discomfort Otherwise able to tolerate diet and urinating regularly Has questions with regards to which medications he can and cannot take Review of Systems: Constitutional: No fever, No chills Respiratory: No cough, No sputum, No shortness of breath Cardiovascular: No chest pain, No edema, No palpitations Abdomen: + pain, No nausea, No vomiting Genitourinary - Male: No hematuria, No dysuria Endocrine: No fatigue Integumentary: No rash, No itch Physical Exam: General Appearance: WD/WN, no apparent distress Neck: supple, no JVD, no carotid bruits, trachea midline Respiratory/Chest: lungs clear, no respiratory distress, no accessory muscle use, + pertinent finding (Clean dialysis port underneath R clavicle) Cardiovascular: regular rate, rhythm, no edema, normal peripheral pulses Abdomen / GI: normal bowel sounds, soft, + tenderness (mild epigastric tenderness) Extremities: no calf tenderness, no pedal edema, normal range of motion, non -tender Neurologic/Psychiatric: alert, normal mood/affect, oriented x 3 Skin: normal color, warm/dry, no rash Hospital Course Frantz is a 77-year-old male the with hypertension, gout and chronic NSAID use who presented with fatigue, generalized malaise, anorexia and oliguria. He was found to have GRISELDA with a creatinine of 10.8 that was not responsive to IVF and received dialysis while in the hospital. He had spontaneous renal recovery before being discharged home with follow up with nephrology. GRISELDA - Baseline creatinine 1.5 and was 10.8 on admission. Presumed to be due to KHOA and NSAID use w/ associated hypotension. - Received IVF with no improvement in renal function - Patient went for dialysis while an inpatient - His UA showed granular casts consistent with ATN - Renal RUBI showed R kidney 12.3cm and left Kidney 10.9cm - Went to [facility] for biopsy-->pending at discharge - creatinine improving upon discharge - patient with f/u with Dr. Mckenna on Jan 05 with repeat labs on Jan 02 - will have home nurse change port dressing - Patient advised to avoid NSAID's, KHOA and Allopurinol - Can take tylenol for pain if needed Myalgias/ erythematous rash - ID consulted, recs appreciated. Echo: LV systolic function is normal. Grade I diastolic dysfunction. Borderline left atrial enlargement. Inferior vena cava is mildly dilated. No obvious valvular lesions suggestive of endocarditis - EBV IgG high, flu and lyme both negative otherwise other immunoglobulins as well as CMV and parvovirus WNL. - Given Rocephin 2 G IV daily x2, blood and urine cultures negative HTN - Lisinopril held - Continue terazosin and amlodipine - discharged with amlodipine Gout - Allopurinol held because of Cr - advised to let PCP or nephro aware if patient has flare, consider steroids? GERD - Omeprazole 20 mg - Continue zantac bid as outpatient BPH - prescribed tamsulosin to take as outpatient Constipation - discharged on colace Total Time Spent: Less than 30 minutes This includes examination of the patient, discharge planning, medication reconciliation, and communication with other providers. Discharge Instructions Please refer to the electronic Patient Visit Report (Discharge Instructions) for additional information. Additional Copies To Stefano Powers M.D.; Beatris Mckenna MD; She Gallardo C.R.NLeonardoP. Assessment/Plan Pt seen and examined with Dr. San and agree w/ history, physical and plan as documented with supplementation noted here. Pt reports gradual improvement in acute on chronic epigastric pain on H2/PPI dual therapy. Urinating well. Tolerating diet. Family support for renal diet. S1 S2 nl RRR no MCG Mild epigastric TTP w/ nl BS and nondistended CTAB 77 y/o male h/o HTN, gout p/w new onset ARF ARF - s/p renal biopsy, nephrology consultation - repeat BMP as outpatient with close nephrology f/u. Encourage renal diet and good hydration Epigastric pain in the setting of reported chronic gastritis - 2 wks of dual therapy and then resume PPI monotherapy Myalgias/erythematous rash - infectious disease consultation Elevated inflammatory markers - RF elevated, ROULA, ANCA unremarkable
== END 2017-12-31 16:46 | disposition home health service (06) | DRG 683 ==
LOC: C.EDB 20:48 → C.2E 23:43 → ENRESERV 12-24 00:30 → C.4E 12-25 21:20
PROVIDERS: ADMIT Student in an Organized Health Care Education/Training Program; ATTEND Family Medicine
PROC: 02HV33Z Insertion of Infusion Device into Superior Vena Cava, Percutaneous Approach (ICD-10-PCS; principal; 2017-12-24 12:00)
DX: N17.9 Acute kidney failure, unspecified (principal); E87.1 Hypo-osmolality and hyponatremia; E87.2 Acidosis; N40.0 Benign prostatic hyperplasia without lower urinary tract symptoms; R70.0 Elevated erythrocyte sedimentation rate; E87.5 Hyperkalemia; D69.6 Thrombocytopenia, unspecified; D64.9 Anemia, unspecified; M79.1 Myalgia; R21 Rash and other nonspecific skin eruption; I12.9 Hypertensive chronic kidney disease with stage 1 through stage 4 chronic kidney disease, or unspecified chronic kidney disease; N18.3 Chronic kidney disease, stage 3 (moderate); M10.9 Gout, unspecified; K21.9 Gastro-esophageal reflux disease without esophagitis; K29.50 Unspecified chronic gastritis without bleeding; K59.00 Constipation, unspecified; Z79.1 Long term (current) use of non-steroidal anti-inflammatories (NSAID); Z79.82 Long term (current) use of aspirin; Z79.899 Other long term (current) drug therapy

== ENCOUNTER → 2018-01-05 | Outpatient (CLI) | payer OTHER, MEDICARE ==
[~2018-01-05] MED LIST changes: -ALL300 PO; -ASPCH81X PO; +CLC100 PO; +FLM4 PO; +KRIL1000; -LISI-461 PO; +NRV5 PO; -OMEGCAP2 PO; -TRAM-10 PO
[2018-01-05 15:27] LABS: ALBUMIN 3.2 gm/dl (3.4-5.0); BLOOD UREA NITROGEN 42 mg/dl (7-18); CALCIUM 8.7 mg/dl (8.5-10.1); CARBON DIOXIDE 26 mmol/L (21-32); CREATININE 2.88 mg/dl (0.60-1.40); GLUCOSE 101 mg/dl (70-99); PHOSPHORUS 3.2 mg/dl (2.5-4.9); POTASSIUM 5.2 mmol/L (3.5-5.1); SODIUM 138 mmol/L (136-145)
[2018-01-07 08:13] LABS: COMPLEMENT C3 TC 44859W 153 MG/DL (90-180); COMPLEMENT C4 TC 44982E 22 MG/DL (16-47)
== END | disposition home or self-care (01) ==
LOC: C.LAB1850 13:58
PROVIDERS: ATTEND Internal Medicine Nephrology
DX: N28.9 Disorder of kidney and ureter, unspecified (principal)

== ENCOUNTER 2018-01-14 11:13 | Emergency (ER) | payer OTHER, MEDICARE ==
[~2018-01-14] VITALS: Ht 177.8 cm; Wt 86.0 kg
[2018-01-14 11:14] VITALS: TEMP 36.8
[2018-01-14 12:21] VITALS: O2SAT 100; Ht 177.8 cm; Wt 86.0 kg
[2018-01-14] MEDS ORDERED: ONDA4TAB46 PO (12:34)
[2018-01-14] MEDS ORDERED: ALLO100T PO (12:34)
[2018-01-14 12:38] LABS: BASO % 0.3 %; BASO ABS # 0.01 K/uL (0-0.2); EOS % 1.9 %; EOS ABS # 0.07 K/uL (0-0.5); HEMATOCRIT 31.5 % (42-52); HEMOGLOBIN 10.9 g/dL (14.0-18.0); IG# 0.01 K/uL (0.00-0.02); LYMPH % 26.8 %; LYMPH ABS # 0.99 K/uL (1.2-3.4); MEAN CELL VOLUME 84.9 fL (80-100); MEAN CORPUSCULAR HEMOGLOBIN 29.4 pg (25-34); MEAN CORPUSCULAR HGB CONC 34.6 g/dl (32-36); MEAN PLATELET VOLUME 9.7 fL (7.4-10.4); MONO % 13.3 %; MONO ABS # 0.49 K/uL (0.11-0.59); NEUT % 57.4 %; NEUT ABS # 2.12 K/uL (1.4-6.5); PLATELET COUNT 135 K/uL (130-400); RED CELL DISTRIBUTION WIDTH CV 12.7 % (11.5-14.5); RED CELL DISTRIBUTION WIDTH SD 39.2 fL (36.4-46.3); WHITE BLOOD COUNT 3.69 K/uL (4.8-10.8)
[2018-01-14 12:53] LABS: ALBUMIN 3.6 gm/dl (3.4-5.0); CREATININE 2.26 mg/dl (0.60-1.40); PTT PATIENT 27.2 SECONDS (21.0-31.0)
--- NOTE | 2018-01-14 12:56 | EMERGENCY ROOM VISIT NOTE ---
History Report prepared by Kalpana: Jaydon Contreras Under the Supervision of: Dr. Santos Juarez M.D. First contact with patient: 11:19 Chief Complaint: DIZZY Stated Complaint: DIZZINESS Nursing Triage Summary: c/o dizziness for 45 min to a hr no other sx or complaints has never had this before and took a new BP med this am and he thinks it was too much no c/o pain History of Present Illness The patient is a 77 year old male who presents to the Emergency Room with complaints of dizziness that is described as lightheadedness that began about 1 hour ago. He has a past medical history of GRISELDA and hypertension. On December 23 , the patient was treated as an inpatient for an elevated creatinine level of 10.7. He was discharged on the with a level of 4.2. His last creatinine level on January 05 was 2.8. His baseline is 1.4. This morning, the patient started a new blood pressure medication, Amlodipine, and took it about 6 hours ago. He then went about his day and received new dentures. However, 1 hour ago, the patient stood up from a seated position and suddenly felt moderately lightheaded and thought he was going to pass out. He sat down and placed his head between his legs and his symptoms completely resolved about 30 minutes later. He states that he is mildly nauseated. Pt denies LOC, headache, fevers, chills, diaphoresis, visual changes, neck pain, chest pain, breathing difficulties, vomiting, abdominal pain, back pain, melena, hematochezia, urinary symptoms, numbness, weakness, lymphadenopathy, rash, or other complaints. He is currently feeling well. He notes that he has chronic constipation and needs to take Miralax every night. Source of History: patient Onset: 1 hour ago Position: other (Global) Symptom Intensity: moderate Quality: other (Dizziness) Timing: resolved Associated Symptoms: + nausea Note: He also felt very lightheaded. Review of Systems See HPI for pertinent positives and negatives. A total of ten systems were reviewed and were otherwise negative. Past Medical & Surgical Medical Problems: (1) GRISELDA (acute kidney injury) (2) Anemia (3) Elevated erythrocyte sedimentation rate (4) Hyperkalemia (5) Metabolic acidosis (6) No Known Active Medical Problems Family History Patient reports no known family medical history. Social History Smoking Status: Never Smoker Drug Use: none Marital Status: Housing Status: lives with significant other Occupation Status: employed Current/Historical Medications Scheduled Allopurinol (Zyloprim), 100 MG PO DAILY Amlodipine Besylate (Amlodipine Besylate), 5 MG PO QAM Calcium Carbonate-Cholecalcife (Calcium 500-100 mg-Unit), 1 TAB PO QAM Docusate Sodium (Docusate Sodium), 100 MG PO BID Krill Oil (Krill Oil), 1 CAP DAILY Multiple Vitamins W/ Minerals (Centrum Silver), 1 TAB PO QAM Tamsulosin HCl (Tamsulosin HCl), 0.4 MG PO HS Terazosin Hcl (Hytrin), 5 MG PO HS Scheduled PRN Ondansetron Hcl (Zofran), 4 MG PO TID PRN for Nausea Allergies Coded Allergies: No Known Allergies (Verified , 01/14/18) Physical Exam Vital Signs Date Time Temp Pulse Resp B/P (MAP) Pulse Ox O2 Delivery O2 Flow Rate FiO2 01/14/18 15:43 83 18 155/92 97 Room Air 01/14/18 14:34 76 20 149/81 96 Room Air 01/14/18 13:15 84 20 153/82 95 Room Air 01/14/18 12:24 80 01/14/18 12:21 72 20 141/83 100 Room Air 78 150/90 85 133/70 01/14/18 12:21 100 Room Air 01/14/18 11:14 36.8 93 16 142/89 99 Physical Exam GENERAL: Awake, alert, well-appearing, in no distress HENT: Normocephalic, atraumatic. Oropharynx unremarkable. EYES: Normal conjunctiva. Sclera non-icteric. NECK: Supple. No nuchal rigidity. FROM. No masses. RESPIRATORY: Clear to auscultation. No wheezes. CARDIAC: Normal rate. Normal rhythm. No murmurs. No rubs. Extremities warm and well perfused. Pulses equal. No JVD. GI: Soft, non-distended. No tenderness to palpation. No rebound or guarding. No masses. RECTAL: Deferred. MUSCULOSKELETAL: Atraumatic. Chest examination reveals no tenderness. There is a dialysis port to the right upper chest that appears normal. The back is symmetrical on inspection without obvious abnormality. There is no CVA tenderness to palpation. No joint edema. LOWER EXTREMITIES: Calves are equal size bilaterally and non-tender. No edema. No discoloration. NEURO: Normal sensorium. No sensory or motor deficits noted. SKIN: No rash or jaundice noted. Medical Decision & Procedures Laboratory Results 01/14/18 12:00 Red Blood Count 3.71, Mean Corpuscular Volume 84.9, Mean Corpuscular Hemoglobin 29.4, Mean Corpuscular Hemoglobin Concent 34.6, Mean Platelet Volume 9.7, Neutrophils (%) (Auto) 57.4, Lymphocytes (%) (Auto) 26.8, Monocytes (%) (Auto) 13.3, Eosinophils (%) (Auto) 1.9, Basophils (%) (Auto) 0.3, Neutrophils # (Auto ) 2.12, Lymphocytes # (Auto) 0.99, Monocytes # (Auto) 0.49, Eosinophils # (Auto ) 0.07, Basophils # (Auto) 0.01 01/14/18 12:00 Test 01/14/18 12:00 01/14/18 13:15 White Blood Count 3.69 K/uL (4.8-10.8) Red Blood Count 3.71 M/uL (4.7-6.1) Hemoglobin 10.9 g/dL (14.0-18.0) Hematocrit 31.5 % (42-52) Mean Corpuscular Volume 84.9 fL (80-100) Mean Corpuscular Hemoglobin 29.4 pg (25-34) Mean Corpuscular Hemoglobin Concent 34.6 g/dl (32-36) Platelet Count 135 K/uL (130-400) Mean Platelet Volume 9.7 fL (7.4-10.4) Neutrophils (%) (Auto) 57.4 % Lymphocytes (%) (Auto) 26.8 % Monocytes (%) (Auto) 13.3 % Eosinophils (%) (Auto) 1.9 % Basophils (%) (Auto) 0.3 % Neutrophils # (Auto) 2.12 K/uL (1.4-6.5) Lymphocytes # (Auto) 0.99 K/uL (1.2-3.4) Monocytes # (Auto) 0.49 K/uL (0.11-0.59) Eosinophils # (Auto) 0.07 K/uL (0-0.5) Basophils # (Auto) 0.01 K/uL (0-0.2) RDW Standard Deviation 39.2 fL (36.4-46.3) RDW Coefficient of Variation 12.7 % (11.5-14.5) Immature Granulocyte % (Auto) 0.3 % Immature Granulocyte # (Auto) 0.01 K/uL (0.00-0.02) Prothrombin Time 10.7 SECONDS (9.0-12.0) Prothromb Time International Ratio 1.0 (0.9-1.1) Activated Partial Thromboplast Time 27.2 SECONDS (21.0-31.0) Partial Thromboplastin Ratio 1.0 Anion Gap 10.0 mmol/L (3-11) Est Creatinine Clear Calc Drug Dose 29.2 ml/min Estimated GFR () 31.7 Estimated GFR (Non- 27.4 BUN/Creatinine Ratio 11.5 (10-20) Calcium Level 9.0 mg/dl (8.5-10.1) Magnesium Level 1.9 mg/dl (1.8-2.4) Total Bilirubin 0.4 mg/dl (0.2-1) Direct Bilirubin 0.2 mg/dl (0-0.2) Aspartate Amino Transf (AST/SGOT) 25 U/L (15-37) Alanine Aminotransferase (ALT/SGPT) 31 U/L (12-78) Alkaline Phosphatase 149 U/L (45-117) Total Protein 7.8 gm/dl (6.4-8.2) Albumin 3.6 gm/dl (3.4-5.0) Lipase 376 U/L (73-393) Thyroid Stimulating Hormone (TSH) 1.390 uIu/ml (0.300-4.500) Urine Color YELLOW Urine Appearance CLEAR (CLEAR) Urine pH 5.0 (4.5-7.5) Urine Specific [place] 1.013 (1.000-1.030) Urine Protein NEG (NEG) Urine Glucose (UA) NEG (NEG) Urine Ketones NEG (NEG) Urine Occult Blood NEG (NEG) Urine Nitrite NEG (NEG) Urine Bilirubin NEG (NEG) Urine Urobilinogen NEG (NEG) Urine Leukocyte Esterase NEG (NEG) Laboratory results reviewed by me ECG Indication: other (Dizziness) Rate (beats per minute): 74 Rhythm: sinus rhythm Findings: no acute ischemic change, other (Premature supraventricular complexes ) Change: Patient's electrocardiogram was interpreted by me. ED Course 1119: The patient was evaluated in room B2. A complete history and physical exam was performed. 1525: I reevaluated the patient. He is asymptomatic and is doing well. Discussed results and discharge instructions: He verbalized understanding and agreement. The patient is ready for discharge. Medical Decision Prior records/ancillary studies reviewed. Triage Nursing notes reviewed and agree them. The patient's history was concerning for dizziness with position change. Differential diagnosis: Etiologies such as benign positional vertigo, tumor, infection, hypoglycemia, electrolyte abnormalities, cardiac sources, intracerebral event, toxicologic, neurologic, as well as others were entertained. Physical examination: As above. No pathologic nystagmus. ER treatment provided: Orthostatic testing did show change but no significant drop. On reassessment the patient felt well. Diagnostics interpretation by me: ECG: Normal sinus rhythm without ischemic change or evidence of dysrhythmia. The labs revealed a normal CBC and chemistry panel except for an elevated creatinine and mild anemia. Creatinine improved from prior. The patient notes that he just restarted blood pressure medication for the first time today in over 1 month. He readily admits to overdoing it. He was very active. He believes that he had the symptoms because of his rapid change in position. He did have some changes with orthostatic testing but was not symptomatic. He remained asymptomatic during his time in the emergency department. He never had any chest pain or shortness of breath. He has no Leg swelling. He had stable vital signs. I discussed conservative management with him. The patient felt very comfortable. He will take it easy and follow-up closely in the office. If he develops any symptoms otherwise he will come back to the emergency department for reevaluation.I gave my usual and customary discussion regarding this issue. By the evaluation outlined above other emergent etiologies such as those listed in the differential, as well as others, were deemed relatively unlikely. The patient was educated about the findings as listed above. All questions were answered and the patient was pleased with the treatment. Return instructions were outlined and the patient was discharged in stable condition. The patient was referred to his PCP for follow-up for a recheck of the current condition. Medication Reconcilliation Current Medication List: was personally reviewed by me Blood Pressure Screening Patient's blood pressure: Elevated blood pressure Blood pressure disposition: Referred to PCP Impression Primary Impression: Dizziness Scribe Attestation The scribe's documentation has been prepared under my direction and personally reviewed by me in its entirety. I confirm that the note above accurately reflects all work, treatment, procedures, and medical decision making performed by me. Departure Information Dispostion Home / Self-Care Referrals Stefano Powers M.D. (PCP) Forms HOME CARE DOCUMENTATION FORM, IMPORTANT VISIT INFORMATION Patient Instructions My [facility] Additional Instructions Continue current medication. Follow-up with the primary office and cross tie maker as scheduled. Take it easy over the next few days. No heavy exertion. Take your time when changing positions, especially when going from lying down to standing or if you are seated for an extended period. Return to the ER for continued dizziness, chest pain, headache, passing out, difficulty breathing, fevers, numbness, tingling, worsening of your condition, or as needed.
[2018-01-14 13:04] LABS: TOTAL PROTEIN 7.8 gm/dl (6.4-8.2)
[2018-01-14 15:43] VITALS: BP 155/92; PULSE 83; O2SAT 97
== END 2018-01-14 15:54 | disposition home or self-care (01) ==
LOC: C.EDB 11:14
DX: R42 Dizziness and giddiness (principal); N18.9 Chronic kidney disease, unspecified

== ENCOUNTER → 2018-01-16 | Outpatient (CLI) | payer OTHER, MEDICARE ==
[~2018-01-16] MED LIST changes: +ALLO100T PO; +ONDA4TAB46 PO; -PRLSR20 PO
[2018-01-16 16:04] LABS: ALBUMIN 3.3 gm/dl (3.4-5.0); BLOOD UREA NITROGEN 28 mg/dl (7-18); CALCIUM 8.7 mg/dl (8.5-10.1); CARBON DIOXIDE 29 mmol/L (21-32); CREATININE 2.35 mg/dl (0.60-1.40); GLUCOSE 107 mg/dl (70-99); PHOSPHORUS 3.6 mg/dl (2.5-4.9); SODIUM 137 mmol/L (136-145)
== END | disposition home or self-care (01) ==
LOC: C.LAB1850 14:51
PROVIDERS: ATTEND Internal Medicine Nephrology
DX: N28.9 Disorder of kidney and ureter, unspecified (principal)

== ENCOUNTER → 2018-01-19 | Day surgery (SDC) | payer OTHER, MEDICARE ==
[~2018-01-19] VITALS: Ht 177.8 cm; Wt 86.5 kg
[~2018-01-19] MED LIST changes: +LIDOCAINE HCL 1% 20 ML VIAL INJ ONE; +LIDOCAINE HCL 1% 20 ML VIAL ONE
[2018-01-19 07:08] VITALS: BP 179/91; PULSE 76; TEMP 37.2; O2SAT 99; Ht 177.8 cm; Wt 86.5 kg
--- NOTE | 2018-01-19 07:36 | History and Physical ---
History & Physical Date of Service Jan 19, 2018. History & Physical Chief Complaint Post permcath insertion History of Present Illness The patient is a 77 year old male with PMH of gout and HTN, admitted d/t severe generalized illness and GRISELDA noted on labs on prior admission. He had a permcath placed for dialysis. He is now off dialysis. Denies fever, chills, chest pain, SOB, abd pain, N/V, rest pain,claudication, other complaints. Allergies Coded Allergies: No Known Allergies (Verified , 11/30/15) Home Medications Scheduled Allopurinol (Allopurinol), 300 MG PO QAM Aspirin (Aspirin Chewable), 81 MG PO QAM Calcium Carbonate-Cholecalcife (Calcium 500-100 mg-Unit), 1 TAB PO QAM Krill Oil (Krill Oil), 1 CAP DAILY Lisinopril (Zestril), 20 MG PO DAILY Multiple Vitamins W/ Minerals (Centrum Silver), 1 TAB PO QAM Naproxen (Aleve), 440 MG PO prn ud Omeprazole (Prilosec), 20 MG PO QAM Terazosin Hcl (Hytrin), 5 MG PO HS Problem List Medical Problems: (1) GRISELDA (acute kidney injury) (2) Anemia (3) Hyperkalemia (4) Metabolic acidosis (5) No Known Active Medical Problems Surgical / Medical History Hx Cardiac Surgery: No Hx Abdominal Surgery: Yes (UMBILICAL HERNIA REPAIR) Hx Cancer Surgery: No Hx Thoracic Surgery: No Hx Orthopedic: Yes (LEFT LEG RECONSTRUCTION FROM FALL, LEFT ANKLE FUSION, LEFT ARM ORIF) Hx Urinary Tract Surgery: No Past Medical/Surgical History: Hypertension Family History Patient reports no known family medical history. Social History Smoking Status: Never Smoker Hx Tobacco Use In Past Year?: No Hx Alcohol Use - Type & Amnt: No Hx Substance Use -Type & Amnt: No Review of Systems Constitutional: + malaise, No chills, No fever Skin: No change in color Eyes: No visual changes ENMT: + sore throat Respiratory: No cough, No MILLER, No hemoptysis, No short of breath Cardiovascular: No chest pain, No palpitations, No syncope, No edema, No intermittent claudication Gastrointestinal: + appetite changes, No abdominal pain, No nausea, No vomiting Musculoskeletal: + joint pain, + muscle pain Neurologic: + weakness, + headache, + lethargy, No dizziness, No numbness, No tingling Physical Exam Constitutional: General Apperance: well-nourished, well-developed Level of Distress: NAD, acutely ill Psychiatric: Mental Status: active & alert, normal mood, normal affect Orientation: oriented except where noted, to time, to place, to person Memory: recent memory normal, remote memory normal Head: normocephalic, atraumatic Eyes: EOM: EOMI ENMT: hearing grossly normal Neck: trachea midline Lungs: Respiratory effort: no dyspnea Auscultation: no wheezing, no rales/crackles, no rhonchi, normal breath sounds Cardiovascular: Apical Impulse: not displaced Heart Auscultation: RRR, no murmurs, no rubs, no gallops Peripheral Pulses: Pulses: full and equal, in all extremities except if noted Bruits: none appreciated Carotid Pulse: normal on the left, normal on the right Brachial Pulses: normal on the left, normal on the right Radial Pulse: normal on the left, normal on the right Femoral Pulse: normal on the left, normal on the right Posterior Tibialis Pulse: decreased on the left, decreased on the right Dorsalis Pedis Pulse: decreased on the left, decreased on the right Abdomen: Bowel Sounds: normal Inspection & Palpation: soft, non-distended, no tenderness, guarding & rebound Musculoskeletal: normal strength (5/5 throughout), normal tone Extremities: Upper Right: no cyanosis, no edema, no varicosities Upper Left: no cyanosis, no edema, no varicosities Lower Right: no cyanosis, no edema, no varicosities Lower Left: no cyanosis, no edema, no varicosities Neurologic: Cranial Nerves: grossly intact Assessment and Plan ASSESSMENT and PLAN: No need for dialysis, renal function recovery Plan: Patient admitted for removal of permcath. I have discussed the risks options and benefits of the procedure with the patient. The patient understands the risks options and benefits and agrees to the procedure.
--- NOTE | 2018-01-19 08:20 | [facility] Operative Report ---
Operative Report Operative Date Jan 19, 2018. Pre-Operative Diagnosis functioning kidneys Post-Operative Diagnosis functioning kidneys Procedure(s) Performed Removal Of Perm Catheter Surgeon Dr. Cobian Stereotyper Helper Surgeon(s) Dr. Cobian Estimated Blood Loss 0 Findings cuff and catheter removed Specimens A. explanted perm catheter Drains None Anesthesia Type Local Complication(s) none Disposition no Indications This patient's a 77-year-old gentleman who had a right internal jugular PermCath placed in the past for dialysis. He now has functioning kidneys and is no longer on dialysis. He is here for his PermCath removal. I have discussed the risks options and benefits of the procedure with the patient. The patient understands the risks options and benefits and agrees to the procedure. Description of Procedure The patient was taken to the angio suite and placed in the supine position. The right side of the neck, chest wall and catheter were prepped and draped in a sterile manner. Local anesthesia was then accomplished. Using sharp and blunt dissection, the cuff of the permcath was freed up from the surrounding fibrous tissue. The permcath and cuff were completely removed. Pressure was then applied and adequate hemostasis was obtained. A sterile dressing was then applied. The patient left the angio suite in good condition and tolerated the procedure well. I attest to the content of the Intraoperative Record and any orders documented therein. Any exceptions are noted below.
--- NOTE | 2018-01-19 08:23 | Discharge Instructions ---
Discharge Instructions Date of Service Jan 19, 2018. Visit Reason for Visit: Acute Kidney Injury Discharge Discharge Diagnosis / Problem: Post permcath insertion, now off dialysis Discharge Goals Goal(s): Therapeutic intervention Activity Recommendations Activity Limitations: resume your previous activity Lifting Limitations: none Exercise/Sports Limitations: as tolerated Shower/Bathe: tomorrow Driving or Machine Use: no limitations Anesthesia . Post Anesthesia Instructions: If you have had General Anesthesia or IV Sedation: * Do not drive today. * Resume driving when surgeon permits. * Do not make important decisions or sign legal documents today. * Call surgeon for: 1. Temperature elevations greater than 101 degrees F. 2. Uncontrollable pain. 3. Excessive bleeding. 4. Persistent nausea and vomiting. 5. Medication intolerance (nausea, vomiting or rash). * For nausea and vomiting use only clear liquids such as: tea, soda, bouillon until nausea subsides, then gradually increase diet as tolerated. * If you have any concerns or questions, call your surgeon's office. If physician is unavailable and it is an emergency, call 911 or go to the nearest emergency room. . Instructions / Follow-Up Instructions / Follow-Up Call [phone] to schedule a follow up appointment if one not already scheduled. Remove dressing tomorrow, replace if needed ACTIVITY RECOMMENDATIONS: See Above SPECIAL CARE INSTRUCTIONS: Call your doctor if: * Temperature above 101 degrees * Pain not relieved by pain medicine ordered * There is increased drainage or redness from any incision * You have any unanswered questions or concerns. SPECIAL CARE INSTRUCTIONS: Medications: * Continue to take your medications as directed. If you have been given a prescription for Plavix, please fill it immediately and take as directed. Incision Care: * Your puncture site may have some bruising and minor swelling for about one week. * You will have a small dressing covering your puncture site. You may remove the dressing after 24 hours and shower. You may let the warm soapy water run over it, but be sure to dry the puncture site well and keep it dry. * DO NOT IMMERSE THE INCISION IN A TUB/POOL/etc. UNTIL HEALED. * Puncture sites should be kept covered with a band-aid until it begins to heal. Restrictions: * Depending on whether you leg or arm was punctured to access the arteries, you will be required to lay flat, hold your arm still, or both, for about 4 hours after the procedure to prevent bleeding. * Limit your activity for the first 48 hours. You may walk and go up and down steps. Avoid excessive bending or movement at the puncture site. Possible Complications: * Excessive Swelling - after blood flow is improved you may notice increased swelling in the lower legs. This is a normal response. This usually depends on the amount of blockages in the leg, how long they have been there prior to your procedure and how much blood flow was restored. Elevating your legs will help to improve this. Please notify our office ([phone] ) if the swelling does not go away after lying in bed overnight. * Infection/Drainage/Bleeding - Drainage or bleeding from the puncture site should be minimal. If you have excessive bleeding or drainage, call our office ([phone]) right away. * Pain - You may experience some mild pain or soreness at your puncture site. If your pain does not improve, please contact our office ([phone]). Call your doctor and seek emergent treatment if you develop: * Temperature above 101 degrees * Any fever or chills * Any redness or purulent drainage from the puncture site * Any new dusky/blue colored toes or feet with coolness or sharp or aching pain. SKIN IRRITATION: * You may experience some redness and/or swelling in the area where radiation was administered. If any skin irritation occurs, please contact your family physician. FOLLOW UP VISIT: Keep any scheduled doctor appointments. Diet Recommendations Recommended Home Diet: resume previous diet Procedures Procedures Performed: Removal Of Perm Catheter Pending Studies Studies pending at discharge: no Medical Emergencies . Who to Call and When: Medical Emergencies: If at any time you feel your situation is an emergency, please call 911 immediately. . Non-Emergent Contact Non-Emergency issues call your: Surgeon . . "Provider Documentation" section prepared by Harshad Cobian. .
[2018-01-19 08:30] VITALS: BP 189/85; PULSE 67; TEMP 36.8; O2SAT 99
[2018-01-19 09:00] VITALS: BP 145/68; PULSE 76; TEMP 36.7; O2SAT 97
== END | disposition home or self-care (01) ==
LOC: C.ACU 06:34
PROVIDERS: ATTEND Surgery Vascular Surgery
DX: Z45.2 Encounter for adjustment and management of vascular access device (principal); M10.9 Gout, unspecified; I10 Essential (primary) hypertension; Z79.82 Long term (current) use of aspirin; Z79.899 Other long term (current) drug therapy; Z98.890 Other specified postprocedural states

== ENCOUNTER → 2018-02-13 | Outpatient (CLI) | payer OTHER, MEDICARE ==
[~2018-02-13] MED LIST changes: -LIDOCAINE HCL 1% 20 ML VIAL INJ ONE; -LIDOCAINE HCL 1% 20 ML VIAL ONE; -TERA5CAP PO
[2018-02-13 12:27] LABS: ALBUMIN 3.7 gm/dl (3.4-5.0); BLOOD UREA NITROGEN 26 mg/dl (7-18); CALCIUM 9.4 mg/dl (8.5-10.1); CARBON DIOXIDE 27 mmol/L (21-32); CREATININE 1.99 mg/dl (0.60-1.40); GLUCOSE 106 mg/dl (70-99); POTASSIUM 4.1 mmol/L (3.5-5.1); SODIUM 140 mmol/L (136-145)
[2018-02-13 12:28] LABS: PHOSPHORUS 3.4 mg/dl (2.5-4.9)
== END | disposition home or self-care (01) ==
LOC: C.LAB1850 09:41
PROVIDERS: ATTEND Internal Medicine Nephrology
DX: N28.9 Disorder of kidney and ureter, unspecified (principal)

== ENCOUNTER → 2018-03-13 | Outpatient (CLI) | payer OTHER, MEDICARE ==
--- NOTE | 2018-03-13 09:06 | DIAGNOSTIC IMAGING REPORT ---
ABDOMINAL ULTRASOUND, RIGHT UPPER QUADRANT HISTORY: LIVER LESION. COMPARISON: CT of the abdomen and pelvis May 16, 2011 and December 23, 2017. FINDINGS: Liver morphology is normal. Note is made of a 9 mm segment 5 hepatic cyst. Multiple calcified granulomas within the liver are noted. There is no biliary ductal dilatation. The gallbladder is normal. Pancreas is unremarkable by sonography. Note is made of a 3.5 cm right renal cyst. There is no right hydronephrosis. IMPRESSION: 1. 9 mm right hepatic lobe cyst. 2. No gallstones or biliary ductal dilatation. 3. 3.5 cm right renal cyst. Electronically signed by: Joe Thompson M.D. 03/13/2018 9:05 AM Dictated Date/Time: 03/13/2018 9:03 AM
== END | disposition home or self-care (01) ==
LOC: C.ULTRBC 08:27
PROVIDERS: ATTEND Neuromusculoskeletal Medicine & OMM
DX: K76.89 Other specified diseases of liver (principal); N28.1 Cyst of kidney, acquired

== ENCOUNTER → 2018-03-18 | Outpatient (CLI) | payer OTHER, MEDICARE ==
[2018-03-18 09:46] LABS: ALBUMIN 3.7 gm/dl (3.4-5.0); BLOOD UREA NITROGEN 32 mg/dl (7-18); CALCIUM 8.9 mg/dl (8.5-10.1); CARBON DIOXIDE 28 mmol/L (21-32); CREATININE 1.96 mg/dl (0.60-1.40); GLUCOSE 93 mg/dl (70-99); POTASSIUM 4.1 mmol/L (3.5-5.1); SODIUM 138 mmol/L (136-145)
[2018-03-18 09:49] LABS: ALKALINE PHOSPHATASE 111 U/L (45-117); ALT/SGPT 32 U/L (12-78); AST/SGOT 18 U/L (15-37); TOTAL PROTEIN 7.4 gm/dl (6.4-8.2)
== END | disposition home or self-care (01) ==
LOC: C.LAB1850 07:05
PROVIDERS: ATTEND Neuromusculoskeletal Medicine & OMM
DX: K76.9 Liver disease, unspecified (principal)

== ENCOUNTER 2020-10-30 10:38 | Observation (INO) ==
[2020-10-30] MEDS ORDERED: SODIUM CHLORIDE 0.9% 1000ML 1,000 ML IV ONE (11:07)
--- NOTE | 2020-10-30 11:13 | Emergency Department Note ---
Impression & Plan Chest pain, Syncope, Breath, shortness ED Provider Note NAME: CLEVELAND GONZALEZ AGE: 80 SEX: M : 1940 ARRIVES VIA: Walk-In INFORMANT: Patient ED PROVIDER(S): Robin Russell DO CHIEF COMPLAINT: Exertional chest pain and syncope HPI: Patient is a 80-year-old male with a past medical history of exertional chest pain, chronic kidney disease previously on dialysis that presents to the ER for syncope. He was working out for about 30 minutes. He had done the bike and some squats. He started to have midsternal chest pain followed by shortness of breath. He became very diaphoretic and pale. He remembers becoming lightheaded and laid himself down on the floor. He passed out. He has been having exertional chest pain for over a year. He is followed up with cardiology. They discussed catheterization but for the time being he has declined secondary to the chronic kidney disease. He has no symptoms at this time. Everything has completely resolved. ROS: See above HPI for pertinent positives & negatives. A total of 10 systems reviewed and were otherwise negative. PAST MEDICAL HISTORY:See Below PAST SURGICAL HISTORY:See Below FAMILY HISTORY:See Below SOCIAL HISTORY:See Below HOME MEDICATIONS:See Below ALLERGIES:See Below VITALS:See Below PHYSICAL EXAMINATION: GENERAL: Sitting up in bed, alert, well appearing, well nourished, no distress, non-toxic EYE EXAM: normal conjunctiva. OROPHARYNX: no exudate, no erythema, lips, buccal mucosa, and tongue normal and mucous membranes are moist NECK: supple, no nuchal rigidity, no adenopathy, non-tender LUNGS: Clear to auscultation. Normal chest wall mechanics HEART: no murmurs, S1 normal and S2 normal ABDOMEN: abdomen soft, non-tender, normo-active bowel sounds, no masses, no rebound or guarding. BACK: Back is symmetrical on inspection and there is no deformity, no midline tenderness, no CVA tenderness. SKIN: no rashes and no bruising UPPER EXTREMITIES: upper extremities are grossly normal. LOWER EXTREMITIES: No pitting edema. Left calf larger than right NEURO EXAM: Normal sensorium, cranial nerves II-XII grossly intact, normal speech, no gross weakness of arms, no gross weakness of legs. MEDICAL DECISION MAKING: Patient is a 80-year-old male who is been having exertional chest pain over the past year. He presents to the as he was having exertional chest pain shortness of breath and syncopized. He was able to lay himself down. He did not hit his head. IV was established blood work was obtained. Labs show mild anemia at 10,000. INR unremarkable. BMP with a creatinine of 2.35 consistent with previous. Chloride slightly elevated at 112. LFTs bilirubin troponin was negative. Lipase unremarkable. Chest x-ray was unremarkable. EKG was not significantly changed. With his history and presentation concerned that this could be cardiac in origin, discussed with hospitalist for further evaluation. Per cardiology notes in the past I discussed catheterization as they do believe that this is likely CAD but they decided at that time to hold due to chronic kidney disease. Triage Nursing notes reviewed. Prior medical records reviewed Vital Signs: reviewed and remarkable for no significant abnormalities Differential diagnosis: Differential diagnosis includes etiologies such as vasovagal event, infection, hypoglycemia, electrolyte abnormalities, cardiac sources, intracerebral event, toxicologic, neurologic, as well as others were entertained. ER treatment provided: See below Diagnostics interpreted by me: ECG: Sinus rhythm rate 86 Normal axis No PVCs Normal QTC at 445 Cardiac Monitoring: An order was placed for continuous cardiac monitoring. The monitor shows a rate of 90 with sinus rhythm. Laboratory studies: As stated above and show below. Imaging studies: Portable AP upright 1 view the chest was unremarkable Consultation(s): Discussed with Dr. Jose Manuel Pan for further evaluation ED COURSE: Procedures: none Critical Care: None Past Med/Surg History Medical History (Updated 10/30/20 @ 16:24 by Robin Russell DO) GRISELDA (acute kidney injury) BPH (benign prostatic hyperplasia) Cancer of skin, face Enlarged prostate Fracture of left upper extremity Fracture of lower extremity Hemodialysis patient dialyzed for short period of time in 2018 History of renal failure Hypertension Sepsis Stage III chronic kidney disease Surgical History (Updated 10/30/20 @ 14:02 by Jose Manuel Pan) H/O ankle fusion "Left" H/O hemorrhoidectomy History of ankle surgery History of hip surgery History of Mohs surgery for squamous cell carcinoma of skin History of orthopedic surgery History of removal of cyst History of repair of left rotator cuff History of umbilical hernia repair (~05/23/15) S/P arteriovenous (AV) graft placement left S/P ORIF (open reduction internal fixation) fracture "Left forearm" Family History Father Myocardial infarction Stroke Congestive heart failure Uncle Myocardial infarction Grandfather (Maternal) Congestive heart failure Mother Congestive heart failure Grandfather (Paternal) Congestive heart failure Denies family history of Ovarian cancer Prostate cancer Breast cancer Colorectal cancer Social History (Updated 10/30/20 @ 14:00 by Jose Manuel Pan) Smoking Status: Never smoker Second Hand Exposure: No; Hx Alcohol Use: No Hx Substance Use: Yes (cbd oil) Preferred Language: Bel[place]ian Communication Ability: Effective Visual Impairment: No Limitations Hearing Ability: Normal Strike Plate Attacher Required: No Beliefs That Will Affect Care: None marital status: Current Living Situation: Spouse current occupational status: employed 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[employer] Feels Safe at Home: Yes Safety Concerns: Feels Safe At This Time Seatbelt Use: always Assistive Devices: None Allergies Allergies Allergy/AdvReac Type Severity Reaction Status Date / Time No Known Drug Allergies Allergy Verified 10/30/20 12:24 Home Meds Home Medications Medication Instructions Recorded Confirmed fyspsnoeiad-lwaxt-rby-vit C-Mn 1 tab PO DAILY 08/04/18 10/30/20 omeprazole 20 mg PO DAILY 08/04/18 10/30/20 calcium carbonate 600 mg calcium 600 mg PO DAILY tab 08/10/19 10/30/20 (1,500 mg) tablet multivitamin 1 tab PO DAILY 08/10/19 10/30/20 aspirin 81 mg tablet,delayed 81 mg PO DAILY 05/15/20 10/30/20 release docusate sodium 100 mg capsule 100 mg PO BID 05/15/20 10/30/20 krill oil 500 mg capsule 500 mg PO DAILY cap 05/15/20 10/30/20 Previous Rx's Medication Instructions Recorded allopurinol 100 mg tablet 100 mg PO BID #60 tab 04/14/20 lisinopril 10 mg tablet 10 mg PO DAILY #90 tab 08/08/20 terazosin 5 mg capsule 5 mg PO DAILY #90 cap 09/22/20 atorvastatin 40 mg tablet 40 mg PO HS #90 tab 10/06/20 isosorbide mononitrate 30 mg 30 mg PO DAILY #30 tab 10/06/20 tablet,extended release 24 hr nitroglycerin 0.4 mg sublingual 0.4 mg SUBLINGUAL Q5M PRN #25 tab 10/06/20 tablet Results & Data (ED) Vital Signs Vital Signs - 24 hr 10/30/20 10:43 10/30/20 11:00 10/30/20 11:10 Temperature 37.0 C Temperature Source Oral Pulse Rate 86 73 Respiratory Rate 20 13 Blood Pressure 130/82 145/68 H Blood Pressure Mean 98 83 Pulse Oximetry 98 97 97 Oxygen Delivery Method Room Air Room Air Room Air Sepsis Recent Fever Within 48 Hours No Sepsis New/Unexplained Change in Mental Status N/A Sepsis Action Taken by Nursing No Action Required 10/30/20 11:30 10/30/20 12:00 10/30/20 13:00 Temperature Temperature Source Pulse Rate 74 72 69 Respiratory Rate 16 13 14 Blood Pressure 142/78 H 151/81 H 140/79 Blood Pressure Mean 100 109 88 Pulse Oximetry 96 98 97 Oxygen Delivery Method Sepsis Recent Fever Within 48 Hours Sepsis New/Unexplained Change in Mental Status Sepsis Action Taken by Nursing 10/30/20 13:30 Temperature Temperature Source Pulse Rate 69 Respiratory Rate 12 Blood Pressure 149/82 H Blood Pressure Mean 90 Pulse Oximetry 97 Oxygen Delivery Method Sepsis Recent Fever Within 48 Hours Sepsis New/Unexplained Change in Mental Status Sepsis Action Taken by Nursing Laboratory Data Result diagrams: 10/30/20 11:20 10/30/20 11:20 Lab Results 10/30/20 10/30/20 10/30/20 Range/Units 11:20 11:20 11:20 WBC 7.12 (4.8-10.8) K/uL RBC 3.58 L (4.7-6.1) M/uL Hgb 10.7 L (14.0-18.0) g/dL Hct 32.6 L (42-52) % MCV 91.1 (80-100) fL MCH 29.9 (25-34) pg MCHC 32.8 (32-36) g/dL RDW Std Deviation 45.9 (36.4-46.3) fL RDW Coeff of Catrina 13.9 (11.5-14.5) % Plt Count 124 L (130-400) K/uL MPV 10.3 (7.4-10.4) fL Immature Gran % (Auto) 0.0 % Neut % (Auto) 80.6 % Lymph % (Auto) 13.2 % [place] % (Auto) 5.3 % Eos % (Auto) 0.8 % Baso % (Auto) 0.1 % Neut # (Auto) 5.73 (1.4-6.5) K/uL Lymph # (Auto) 0.94 L (1.2-3.4) K/uL [place] # (Auto) 0.38 (0.11-0.59) K/uL Eos # (Auto) 0.06 (0-0.5) K/uL Baso # (Auto) 0.01 (0-0.2) K/uL Immature Gran # (Auto) 0.00 (0.00-0.02) K/uL PT 11.4 (9.0-12.0) Seconds INR 1.1 (0.9-1.1) APTT 26.6 (21.0-31.0) Seconds PTT Ratio 1.0 Sodium 139 (136-145) mmol/L Potassium 4.9 (3.5-5.1) mmol/L Chloride 112 H (98-107) mmol/L Carbon Dioxide 24 (21-32) mmol/L Anion Gap 3.0 (3-11) BUN 39 H (7-18) mg/dl Creatinine 2.35 H (0.6-1.4) mg/dl Est Cr Clr Drug Dosing Not Reportable Est GFR ( Amer) 29.6 Est GFR (Non-Af Amer) 25.5 BUN/Creatinine Ratio 16.5 (10-20) Glucose 97 (70-99) mg/dl Calcium 8.9 (8.5-10.1) mg/dl Total Bilirubin 0.4 (0.2-1) mg/dl AST 16 (15-37) U/L ALT 23 (12-78) U/L Alkaline Phosphatase 105 (45-117) U/L Total Creatine Kinase 66 (39-308) U/L Troponin I < 0.015 (0-0.045) ng/ml Total Protein 7.3 (6.4-8.2) gm/dl Albumin 3.9 (3.4-5.0) gm/dl Globulin 3.4 (2.5-4.0) gm/dl Albumin/Globulin Ratio 1.1 (0.9-2) Lipase 220 (73-393) U/L Administered Medications Discontinued Medications Sodium Chloride (Nss 1000ml) 1,000 mls @ 999 mls/hr IV .Q1H1M ONE Stop: 10/30/20 12:07 Last Infusion: 10/30/20 12:26 Dose: 0 mls/hr Documented by: [id number] Admin: 10/30/20 11:25 Dose: 999 mls/hr Documented by: [id number] Discharge Plan Visit Data Chief Complaint: Syncope (Near Syncope) Stated Complaint: PASSED OUT ED Provider: Robin Russell Discharge Problem: Chest pain, Syncope, Breath, shortness Patient Disposition: Admitted As Inpatient Discharge Instructions Interventions: ED Discharge Assessment Last Done: 10/30/20 14:44 Discharge Problem: Chest pain Qualifiers: Chest pain type: unspecified Qualified Code(s): R07.9 - Chest pain, unspecified Syncope Qualifiers: Syncope type: unspecified Qualified Code(s): R55 - Syncope and collapse
[2020-10-30 11:30] LABS: Basophils # (auto) 0.01 K/uL (0-0.2); Basophils % (auto) 0.1 %; Eosinophils # (auto) 0.06 K/uL (0-0.5); Eosinophils % (auto) 0.8 %; Hematocrit (blood only) 32.6 % (42-52); Hemoglobin 10.7 g/dL (14.0-18.0); Lymphocytes # (auto) 0.94 K/uL (1.2-3.4); Lymphocytes % (auto) 13.2 %; Mean Corpuscular Hemoglobin 29.9 pg (25-34); Mean Corpuscular Hgb Conc 32.8 g/dL (32-36); Mean Corpuscular Volume 91.1 fL (80-100); Mean Platelet Volume 10.3 fL (7.4-10.4); Monocytes # (auto) 0.38 K/uL (0.11-0.59); Monocytes % (auto) 5.3 %; Neutrophils # (auto) 5.73 K/uL (1.4-6.5); Neutrophils % (auto) 80.6 %; Platelet Count 124 K/uL (130-400); RDW Coefficient of Variation 13.9 % (11.5-14.5); RDW Standard Deviation 45.9 fL (36.4-46.3); Red Blood Count 3.58 M/uL (4.7-6.1); White Blood Count 7.12 K/uL (4.8-10.8)
[2020-10-30 11:43] LABS: INR 1.1 (0.9-1.1); Partial Thromboplastin Time 26.6 Seconds (21.0-31.0); Prothrombin Time 11.4 Seconds (9.0-12.0)
[2020-10-30 11:47] LABS: Alanine Aminotransferase 23 U/L (12-78); Albumin Level 3.9 gm/dl (3.4-5.0); Aspartate Aminotransferase 16 U/L (15-37); BUN Creatinine Ratio 16.5 (10-20); Blood Urea Nitrogen 39 mg/dl (7-18); Calcium 8.9 mg/dl (8.5-10.1); Carbon Dioxide 24 mmol/L (21-32); Chloride 112 mmol/L (98-107); Est GFR (African American) 29.6; Est GFR (Non-African American) 25.5; Glucose 97 mg/dl (70-99); Lipase 220 U/L (73-393); Potassium 4.9 mmol/L (3.5-5.1); Sodium 139 mmol/L (136-145)
[2020-10-30 11:52] LABS: Albumin Globulin Ratio 1.1 (0.9-2); Alkaline Phosphatase 105 U/L (45-117); Bilirubin,Total 0.4 mg/dl (0.2-1); Creatine Kinase 66 U/L (39-308); Globulin 3.4 gm/dl (2.5-4.0); Total Protein 7.3 gm/dl (6.4-8.2); Troponin I < 0.015 ng/ml (0-0.045)
--- NOTE | 2020-10-30 12:01 | XRay Report ---
XR chest 1V portable HISTORY: 80 years-old Male Chest Pain acute atypical chest pain COMPARISON: Chest radiograph 08/06/2018 TECHNIQUE: Portable AP view of the chest FINDINGS: Cardiomediastinal and hilar silhouettes are within normal limits. Calcified plaque of the thoracic ao rta. Linear subsegmental atelectasis/scarring of the left greater than right lung bases. No pneumotho rax, pleural effusion, overt pulmonary edema or airspace consolidation typical for pneumonia. Degener ative changes of the shoulders and spine. Surgical clips of the left axilla. IMPRESSION: No acute process. ACT 112: Negative or not required by law. The above report was generated using voice recognition software. It may contain grammatical, syntax o r spelling errors. Electronically signed by: Brandon eWn M.D. 10/30/2020 12:00 PM
--- NOTE | 2020-10-30 14:01 | History & Physical Report ---
Date of Service October 30, 2020 Assessment & Plan (1) Syncope: Occurred in the setting of fairly intense exercise at the gym. Concerning for arrhythmia vs ischemic vs another low-flow state (carotid disease, for example) vs other. Will ask [facility] cardiology to see. Trend troponins. 2D echo to look at valve function, LVOT, EF, wall motion, etc. Carotid duplex, r/o ICA stenosis. Telemetry. (2) Exertional angina: Has had long-standing, progressive exertional chest pain. Multiple CAD risk factors. Nuclear stress test earlier this month was positive. [facility] cardiology to see in consult. Multiple episodes of chest pain at the gym this am. Trend troponins. Continue asa. Continue statin. Echo in am. Heart cath ?? But at high risk of contrast injury given his advanced CKD stage 4. Cardiology to speak with patient regarding this. Defer on heparin unless troponin rises, etc. Continue imdur. Hold KHOA in setting of CKD stage 4. (3) Positive cardiac stress test: 10/11/20 lexiscan stress test. Cardiology aware and will consult. see above. (4) Chronic kidney disease, stage IV (severe): baseline Cr about 2.3. repeat BMP am for stability. 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 follows with [facility] nephrology. (6) Hypertension: Continue home meds except lisinopril given CKD. (7) BPH (benign prostatic hyperplasia): Continue alpha estefania. (8) Anemia: likely 2nd to CKD. stable H/H. (9) Hyperlipidemia: LDL 77 in March 2019. Consider repeat lipid profile while here. Continue statin in meantime. (10) DVT prophylaxis: heparin [address] on observation status obtain rapid COVID ag test for screening purposes History of Present Illness Chief Complaint: chest pain, passing out spell Primary Care Provider: Sanket Burns, 80yo male with CKD 3/4 and HTN who presents with an episode of passing out this am while working out at a local gym about 0815. He initially was riding an exercise bike. He noted that his HR got up to about 115. He started to have dyspnea with mid-sternal chest pain. Got off the bike, rested a little, then decided to do squats. He got chest pain again along with dyspnea while doing the squats. Rested once further. Symptoms improved. Was about to get on another exercise machine but he developed sweatiness, felt dizzy, then proceeded to pass out. Loss of consciousness for about 1 minute. When he regained consciousness he somehow managed to drive himself home. At home he called the [facility] cardiology office -- he was advised to come to ER. In the ER he reports no ongoing cardiopulmonary symptoms. During my admission assessment he said "I feel fine now." Denied recurrent chest pain since arriving in ER. Over the weekend he felt fatigued and stated "I just didn't feel well." No cp or dyspnea but felt unwell. Had good appetite over weekend. Just had positive lexiscan stress test earlier this month. Allergies Allergy/AdvReac Type Severity Reaction Status Date / Time No Known Drug Allergies Allergy Verified 10/30/20 12:24 Home Medications Medication Instructions Recorded Confirmed Type wfzuthcbiok-qhusy-dzu-vit C-Mn 1 tab PO DAILY 08/04/18 10/30/20 History omeprazole 20 mg PO DAILY 08/04/18 10/30/20 History calcium carbonate 600 mg calcium 600 mg PO DAILY tab 08/10/19 10/30/20 History (1,500 mg) tablet multivitamin 1 tab PO DAILY 08/10/19 10/30/20 History allopurinol 100 mg tablet 100 mg PO BID #60 tab 04/14/20 10/30/20 Rx aspirin 81 mg tablet,delayed 81 mg PO DAILY 05/15/20 10/30/20 History release docusate sodium 100 mg capsule 100 mg PO BID 05/15/20 10/30/20 History krill oil 500 mg capsule 500 mg PO DAILY cap 05/15/20 10/30/20 History lisinopril 10 mg tablet 10 mg PO DAILY #90 tab 08/08/20 10/30/20 Rx terazosin 5 mg capsule 5 mg PO DAILY #90 cap 09/22/20 10/30/20 Rx atorvastatin 40 mg tablet 40 mg PO HS #90 tab 10/06/20 10/30/20 Rx isosorbide mononitrate 30 mg 30 mg PO DAILY #30 tab 10/06/20 10/30/20 Rx tablet,extended release 24 hr nitroglycerin 0.4 mg sublingual 0.4 mg SUBLINGUAL Q5M PRN #25 tab 10/06/20 10/30/20 Rx tablet Past Med/Surg History Medical History GRISELDA (acute kidney injury) BPH (benign prostatic hyperplasia) Cancer of skin, face Enlarged prostate Fracture of left upper extremity Fracture of lower extremity Hemodialysis patient dialyzed for short period of time in 2018 History of renal failure Hypertension Sepsis Stage III chronic kidney disease Surgical History H/O ankle fusion "Left" H/O hemorrhoidectomy History of ankle surgery History of hip surgery History of Mohs surgery for squamous cell carcinoma of skin History of orthopedic surgery History of removal of cyst History of repair of left rotator cuff History of umbilical hernia repair (~05/23/15) S/P arteriovenous (AV) graft placement left S/P ORIF (open reduction internal fixation) fracture "Left forearm" Family History Father Myocardial infarction Stroke Congestive heart failure Uncle Myocardial infarction Grandfather (Maternal) Congestive heart failure Mother Congestive heart failure Grandfather (Paternal) Congestive heart failure Denies family history of Ovarian cancer Prostate cancer Breast cancer Colorectal cancer Social History Smoking Status: Never smoker Second Hand Exposure: No; Hx Alcohol Use: No Hx Substance Use: Yes (cbd oil) Preferred Language: Swedish Communication Ability: Effective Visual Impairment: No Limitations Hearing Ability: Normal Cone Operator Required: No Beliefs That Will Affect Care: None marital status: Current Living Situation: Spouse current occupational status: employed 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[employer] Feels Safe at Home: Yes Safety Concerns: Feels Safe At This Time Seatbelt Use: always Assistive Devices: None Review of Systems Constitutional: + fatigue; no fever, no chills, no anorexia, no weight loss and no weight gain Eyes: + worsening vision "tunnel vision" when he passed out today Ear, Nose, Mouth, Throat: no nasal congestion and no sore throat Respiratory: as per Subjective / HPI and + dyspnea on exertion; no cough Cardiovascular: + chest pain with activity, + dyspnea on exertion and + syncope; no chest pain at rest and no edema Gastrointestinal: no abdominal pain, no diarrhea/loose stools and no blood in stools Genitourinary: no dysuria Musculoskeletal: no myalgia Integumentary: no rash Neurologic: no localized weakness Psychiatric: no anxiety Endocrine: denies diabetes Hematologic / Lymphatic: no easy bleeding and no easy bruising Physical Exam Constitutional: well developed and well nourished; no acute distress and no altered mental status Eyes: PERRL ENMT: external ear and nose normal, oropharynx normal Neck: trachea midline, no thyromegaly no carotid bruits Respiratory: normal respiratory effort, lungs clear to auscultation Cardiovascular: Rate/Rhythm: regular rate and regular rhythm Heart Sounds: normal S1 and normal S2; no murmur Vessels: posterior tibial pulses present and dorsalis pedis pulses present; no JVD Extremities: no edema Gastrointestinal (Abdomen): normal bowel sounds, soft, nontender, no hepatosplenomegaly Musculoskeletal: no cyanosis or clubbing, extremities motor strength 5/5 Skin: no rashes, warm and dry scars from AV graft site, left upper arm - no bruit, no thrill Neurologic: deep tendon reflexes 2+ bilaterally and moves all extremities; no focal motor deficits muscle bulk left leg is less than right leg -- chronic per patient Psychiatric: A+Ox3, euthymic affect Lymphatic: no cervical lymphadenopathy Results & Data Results & Data ([facility]) Vital Signs (Past 12 Hours) Vital Signs Temp Pulse Resp BP Pulse Ox 10/30/20 13:30 69 12 149/82 H 97 10/30/20 13:00 69 14 140/79 97 10/30/20 12:00 72 13 151/81 H 98 10/30/20 11:30 74 16 142/78 H 96 10/30/20 11:10 97 10/30/20 11:00 73 13 145/68 H 97 10/30/20 10:43 37.0 C 86 20 130/82 98 Laboratory Results Laboratory Results - last 24 hr 10/30/20 10/30/20 10/30/20 11:20 11:20 11:20 WBC 7.12 RBC 3.58 L Hgb 10.7 L Hct 32.6 L MCV 91.1 MCH 29.9 MCHC 32.8 RDW Std Deviation 45.9 RDW Coeff of Catrina 13.9 Plt Count 124 L MPV 10.3 Immature Gran % (Auto) 0.0 Neut % (Auto) 80.6 Lymph % (Auto) 13.2 [place] % (Auto) 5.3 Eos % (Auto) 0.8 Baso % (Auto) 0.1 Neut # (Auto) 5.73 Lymph # (Auto) 0.94 L [place] # (Auto) 0.38 Eos # (Auto) 0.06 Baso # (Auto) 0.01 Immature Gran # (Auto) 0.00 PT 11.4 INR 1.1 APTT 26.6 PTT Ratio 1.0 Sodium 139 Potassium 4.9 Chloride 112 H Carbon Dioxide 24 Anion Gap 3.0 BUN 39 H Creatinine 2.35 H Est Cr Clr Drug Dosing Not Reportable Est GFR ( Amer) 29.6 Est GFR (Non-Af Amer) 25.5 BUN/Creatinine Ratio 16.5 Glucose 97 Calcium 8.9 Total Bilirubin 0.4 AST 16 ALT 23 Alkaline Phosphatase 105 Total Creatine Kinase 66 Troponin I < 0.015 Total Protein 7.3 Albumin 3.9 Globulin 3.4 Albumin/Globulin Ratio 1.1 Lipase 220 SARS-CoV-2, RNA, NAAT SARS-CoV-2 Ag (Rapid) 10/30/20 10/31/20 10/31/20 17:12 01:49 Unknown WBC RBC Hgb Hct MCV MCH MCHC RDW Std Deviation RDW Coeff of Cartina Plt Count MPV Immature Gran % (Auto) Neut % (Auto) Lymph % (Auto) [place] % (Auto) Eos % (Auto) Baso % (Auto) Neut # (Auto) Lymph # (Auto) [place] # (Auto) Eos # (Auto) Baso # (Auto) Immature Gran # (Auto) PT INR APTT PTT Ratio Sodium Potassium Chloride Carbon Dioxide Anion Gap BUN Creatinine Est Cr Clr Drug Dosing Est GFR ( Amer) Est GFR (Non-Af Amer) BUN/Creatinine Ratio Glucose Calcium Total Bilirubin AST ALT Alkaline Phosphatase Total Creatine Kinase Troponin I < 0.015 Total Protein Albumin Globulin Albumin/Globulin Ratio Lipase SARS-CoV-2, RNA, NAAT NEGATIVE SARS-CoV-2 Ag (Rapid) Pending Diagnostic Findings 1. cxr - no infiltrates 2. ekg - NSR, no ST changes Code Status & VTE Plan Code Status DNR/DNI VTE Prophylaxis Plan VTE Prophylaxis will be ordered: Yes PG Care Time/CCT Total # of Minutes Spent Total Time Spent with Patient: Total time spent is greater than 50% in coordination of care (as documented) at patient's floor/unit and/or counseling patient: Coding Level of Care Code 89416 OBS Care - Level 3 Diagnoses Syncope R55 Syncope type: unspecified Exertional angina I20.8 Positive cardiac stress test R94.39 Chronic kidney disease, stage IV (severe) N18.4 S/P arteriovenous (AV) graft placement Z98.890 Hypertension I10 Hypertension type: essential hypertension BPH (benign prostatic hyperplasia) N40.0 Lower urinary tract symptom presence: symptoms absent Anemia D64.9 Anemia type: unspecified type Hyperlipidemia E78.2 Hyperlipidemia type: mixed hyperlipidemia DVT prophylaxis Z29.9 (1) Syncope Syncope type: unspecified Qualified Code(s): R55 - Syncope and collapse (2) Hypertension Hypertension type: essential hypertension Qualified Code(s): I10 - Essential (primary) hypertension (3) BPH (benign prostatic hyperplasia) Lower urinary tract symptom presence: symptoms absent Qualified Code(s): N40.0 - Benign prostatic hyperplasia without lower urinary tract symptoms (4) Anemia Anemia type: unspecified type Qualified Code(s): D64.9 - Anemia, unspecified (5) Hyperlipidemia Hyperlipidemia type: mixed hyperlipidemia Qualified Code(s): E78.2 - Mixed hyperlipidemia
[2020-10-30] MEDS ORDERED: NITROGLYCERIN SL 0.4 MG/TAB TAB SL PRN ×2 (16:21)
[2020-10-30] MEDS ORDERED: ONDANSETRON INJ 2 MG/ML 2 ML VIAL IV PRN (16:21)
[2020-10-30] MEDS ORDERED: ACETAMINOPHEN 325 MG TAB PO PRN (16:21)
--- NOTE | 2020-10-30 16:29 | Electrocardiogram Report ---
Test Reason : Blood Pressure : / mmHG Vent. Rate : 086 BPM Atrial Rate : 086 BPM P-R Int : 142 ms QRS Dur : 092 ms QT Int : 372 ms P-R-T Axes : 058 001 038 degrees QTc Int : 445 ms Normal sinus rhythm Normal ECG When compared with ECG of 12-AUG-2018 08:52, Vent. rate has increased BY 32 BPM Confirmed by Dereje Lees ([id number]) on 10/30/2020 4:29:13 PM Referred By: REFERRED SELF Confirmed By:Shreyas Lees
--- NOTE | 2020-10-30 17:36 | Cardiology Consultation ---
Date of Consultation October 30, 2020 Assessment & Plan (1) Syncope: His symptoms of syncope are concerning given his presumed coronary disease. This appeared to occur in the setting of some exertion and after 2 episodes of presumed angina. It is possible that this was related to some cy tricular arrhythmia in the setting of ischemia. However, he did have some prodrome and was able to lie down before losing consciousness briefly. He was described as being very pale afterwards which suggests an alternate etiology. Perhaps this was vagally mediated. I will need to review his echocardiogram in order to determine if further evaluation is needed. In the setting of reduced LV systolic function a concern for malignant ventricular arrhythmias would be higher. (2) Exertional angina: His symptoms and perfusion imaging all suggest coronary disease as the etiology. It seems likely that he has right coronary stenosis. Generally speaking this is easily approachable by percutaneous intervention. However, his impaired renal function and history of dialysis place him at considerable risk for contrast nephropathy. Certain precautions could be taking, but at this point he seems hesitant to take the risk of returning to dialysis. We discussed alternatives which would be intensification of his antianginal therapy. Think this is a reasonable option. I do not believe he suffered an acute coronary event. His symptoms always seem to be exertional. Even the episode of syncope while possibly related to ischemia, occurred in the setting of exertion with angina. By limiting his activity and intensifying his medical therapy we may be able to improve his symptoms, which is the only goal provided his overall LV function is preserved. He did not seem to tolerate beta-blockers. We will continue his nitrates and possibly increase the dose. We could consider discontinuation of his lisinopril in favor of amlodipine. He does have an element of anemia as well. I do not believe his degree of anemia likely precipitated his symptoms. Another element of antianginal therapy is simply avoiding activity which causes the angina. Despite his enthusiasm for vigorous exercise, he may need to reduce his exercise in order to avoid recurrent symptoms. History of Present Illness Reason for Consultation: angina, syncope Requesting Physician: Viviane Attending Physician: Jose Manuel Pan History of Present Illness The patient is a 72-year-old gentleman without a known history of cardiac disease who has been experiencing symptoms of exertional chest and body discomfort for approximately 1 year. He was seen in our office approximately 3 weeks ago for the symptoms. He states that over course of a year this symptoms have become more severe and occur with slightly less exertion. He is very active individual who is accustomed to both routine labor and exercise. He states that when he works to a certain workload he will developed discomfort. This begins in the chest but generalize is to involve the arms and his head as well. Discontinuation of activity generally resolves symptoms within several minutes. He was referred for a nuclear perfusion study as well as an echocardiogram. He was started on beta-blockade and a daily nitrate. He states that the medicine made him feel poorly and he discontinued the beta-estefania. It seems that he has continued the daily nitrate. However, does not appear to have attenuated his symptoms. Today he was exercising on a stationary bike. He developed his usual chest pain symptoms. He discontinued his activity in this resolved. He then began performing some weightlifting and his symptoms again returned. He discontinued his activity. He was doing some pushups against the wall when he began to feel poorly. He began to feel somewhat lightheaded and dizzy and took the opportunity to lay down on the floor. However, he believes he lost consciousness for a couple of minutes. He was told by a superintendent automotive that he looked somewhat pale. He continued to be dizzy but decided to drive home and call the cardiology clinic. He was instructed to go to the emergency room. Upon arrival he was actually feeling well. He has not had any recurrence of these symptoms since admission. He states that he rarely has some symptoms of orthostasis. This tends to occur after sitting for a while and getting up quickly. However, he describes that is distinct from what he experienced today. He cannot recall another episode of syncope. He generally does not have symptoms of palpitations. He has not had breathing difficulty at rest. No orthopnea or paroxysmal nocturnal dyspnea. Allergies Allergy/AdvReac Type Severity Reaction Status Date / Time No Known Drug Allergies Allergy Verified 10/30/20 12:24 Home Medications Medication Instructions Recorded Confirmed Type wuyhtwsyhyu-zilem-mql-vit C-Mn 1 tab PO DAILY 08/04/18 10/30/20 History omeprazole 20 mg PO DAILY 08/04/18 10/30/20 History calcium carbonate 600 mg calcium 600 mg PO DAILY tab 08/10/19 10/30/20 History (1,500 mg) tablet multivitamin 1 tab PO DAILY 08/10/19 10/30/20 History allopurinol 100 mg tablet 100 mg PO BID #60 tab 04/14/20 10/30/20 Rx aspirin 81 mg tablet,delayed 81 mg PO DAILY 05/15/20 10/30/20 History release docusate sodium 100 mg capsule 100 mg PO BID 05/15/20 10/30/20 History krill oil 500 mg capsule 500 mg PO DAILY cap 05/15/20 10/30/20 History lisinopril 10 mg tablet 10 mg PO DAILY #90 tab 08/08/20 10/30/20 Rx terazosin 5 mg capsule 5 mg PO DAILY #90 cap 09/22/20 10/30/20 Rx atorvastatin 40 mg tablet 40 mg PO HS #90 tab 10/06/20 10/30/20 Rx isosorbide mononitrate 30 mg 30 mg PO DAILY #30 tab 10/06/20 10/30/20 Rx tablet,extended release 24 hr nitroglycerin 0.4 mg sublingual 0.4 mg SUBLINGUAL Q5M PRN #25 tab 10/06/20 10/30/20 Rx tablet Patient History Medical History GRISELDA (acute kidney injury) BPH (benign prostatic hyperplasia) Cancer of skin, face Enlarged prostate Fracture of left upper extremity Fracture of lower extremity Hemodialysis patient dialyzed for short period of time in 2018 History of renal failure Hypertension Sepsis Stage III chronic kidney disease Surgical History H/O ankle fusion "Left" H/O hemorrhoidectomy History of ankle surgery History of hip surgery History of Mohs surgery for squamous cell carcinoma of skin History of orthopedic surgery History of removal of cyst History of repair of left rotator cuff History of umbilical hernia repair (~05/23/15) S/P arteriovenous (AV) graft placement left S/P ORIF (open reduction internal fixation) fracture "Left forearm" Family History Father Myocardial infarction Stroke Congestive heart failure Uncle Myocardial infarction Grandfather (Maternal) Congestive heart failure Mother Congestive heart failure Grandfather (Paternal) Congestive heart failure Denies family history of Ovarian cancer Prostate cancer Breast cancer Colorectal cancer Social History Smoking Status: Never smoker Second Hand Exposure: No; Hx Alcohol Use: No Hx Substance Use: Yes (cbd oil) Preferred Language: Puerto Rican Communication Ability: Effective Visual Impairment: No Limitations Hearing Ability: Normal Diabetes Nurse Required: No Beliefs That Will Affect Care: None marital status: Current Living Situation: Spouse current occupational status: employed 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 Mood and affect appeared normal. He answered all questions appropriately. HEENT: Pupils are equal and reactive to light and accommodation. Extraocular movements are intact. The sclerae are anicteric. Neuro: Cranial nerves intact (wearing mask) Neck: Patient's neck is supple. He has palpable carotid pulses bilaterally without bruits on auscultation. There is no evidence of jugular venous distention. The thyroid is not enlarged. Lungs: Clear to auscultation bilaterally. He has good air movement without use of accessory muscles. No rales wheezes or rhonchi. Cardiac: Heart demonstrates a regular rate and rhythm. Normal S1 and S2. No murmurs on examination. Pulses: The patient has palpable radial pulses bilaterally that are equal in intensity. He has a previously formed AV fistula in the left brachial area. He has a palpable pulse but no palpable thrill or bruit. Extremities: There was no evidence of hypoperfusion. There is no cyanosis or clubbing. There is no edema. Skin: I did not appreciate any rashes on examination today. Results & Data ([facility]) Vital Signs (Past 12 Hours) Vital Signs Temp Pulse Resp BP Pulse Ox 10/30/20 13:30 69 12 149/82 H 97 10/30/20 13:00 69 14 140/79 97 10/30/20 12:00 72 13 151/81 H 98 10/30/20 11:30 74 16 142/78 H 96 10/30/20 11:10 97 10/30/20 11:00 73 13 145/68 H 97 10/30/20 10:43 37.0 C 86 20 130/82 98 Laboratory Results Abnormal Lab Results 10/30/20 10/30/20 10/30/20 11:20 11:20 11:20 WBC 7.12 RBC 3.58 L Hgb 10.7 L Hct 32.6 L MCV 91.1 MCH 29.9 MCHC 32.8 RDW Std Deviation 45.9 RDW Coeff of Catrina 13.9 Plt Count 124 L MPV 10.3 Immature Gran % (Auto) 0.0 Neut % (Auto) 80.6 Lymph % (Auto) 13.2 [place] % (Auto) 5.3 Eos % (Auto) 0.8 Baso % (Auto) 0.1 Neut # (Auto) 5.73 Lymph # (Auto) 0.94 L [place] # (Auto) 0.38 Eos # (Auto) 0.06 Baso # (Auto) 0.01 Immature Gran # (Auto) 0.00 PT 11.4 INR 1.1 APTT 26.6 PTT Ratio 1.0 Sodium 139 Potassium 4.9 Chloride 112 H Carbon Dioxide 24 Anion Gap 3.0 BUN 39 H Creatinine 2.35 H Est Cr Clr Drug Dosing Not Reportable Est GFR ( Amer) 29.6 Est GFR (Non-Af Amer) 25.5 BUN/Creatinine Ratio 16.5 Glucose 97 Calcium 8.9 Total Bilirubin 0.4 AST 16 ALT 23 Alkaline Phosphatase 105 Total Creatine Kinase 66 Troponin I < 0.015 Total Protein 7.3 Albumin 3.9 Globulin 3.4 Albumin/Globulin Ratio 1.1 Lipase 220 Diagnostic Findings Admission. No acute cardiopulmonary process. Cardiac perfusion study suggested mild ischemia in a moderate-sized territory involving the infero septum and inferior wall. Some anteroseptal reduced perfusion as well ECG Additional Comments: EKG obtained at the time of admission revealed normal sinus rhythm. No acute ST or T-wave changes PG Care Time/CCT Total # of Minutes Spent Total Time Spent with Patient: Total time spent is greater than 50% in coordination of care (as documented) at patient's floor/unit and/or counseling patient: Coding Level of Care Code 49837 Initial Inpt Care Lvl 3 Diagnoses Syncope R55 Syncope type: unspecified Exertional angina I20.8 (1) Syncope Syncope type: unspecified Qualified Code(s): R55 - Syncope and collapse
[2020-10-30] MEDS: HEPARIN SOD 5,000 UNIT/0.5 ML VIAL SQ SCH (20:50)
[2020-10-30] MEDS: DOCUSATE SODIUM 100 MG CAP PO SCH (20:51)
[2020-10-30] MEDS: allopurinoL 100 MG TAB PO SCH (20:51)
[2020-10-30] MEDS ORDERED: ATORVASTATIN 40 MG TAB PO SCH (21:00)
--- NOTE | 2020-10-30 21:13 | Ultrasound Report ---
BILATERAL CAROTID DOPPLER STUDY HISTORY: syncope COMPARISON: None. TECHNIQUE: Real-time, grayscale, and color Doppler sonography of the carotid arteries was performed. Imaging reviewed in the transverse and longitudinal planes. All measurements were calculated based on NASCET criteria. FINDINGS: Antegrade flow is seen in the bilateral vertebral arteries. Mild calcified plaque within the bilateral carotid bifurcations. The peak systolic velocity within the right ICA is 82 cm/s. The right systolic ratio is 0.7. The peak systolic velocity within the left ICA is 124 cm/s. The left systolic ratio is 1.3. IMPRESSION: No hemodynamically significant stenosis seen within the carotid arteries. ACT 112: Negative or not required by law. Electronically signed by: Nathen Judge M.D. 10/30/2020 9:11 PM
[2020-10-31 07:15] LABS: Hematocrit (blood only) 31.7 % (42-52); Hemoglobin 10.5 g/dL (14.0-18.0); Mean Corpuscular Hemoglobin 30.2 pg (25-34); Mean Corpuscular Hgb Conc 33.1 g/dL (32-36); Mean Corpuscular Volume 91.1 fL (80-100); Mean Platelet Volume 10.2 fL (7.4-10.4); Platelet Count 116 K/uL (130-400); RDW Coefficient of Variation 14.1 % (11.5-14.5); RDW Standard Deviation 46.4 fL (36.4-46.3); Red Blood Count 3.48 M/uL (4.7-6.1); White Blood Count 5.03 K/uL (4.8-10.8)
[2020-10-31 07:41] LABS: Blood Urea Nitrogen 34 mg/dl (7-18); Calcium 9.1 mg/dl (8.5-10.1); Carbon Dioxide 23 mmol/L (21-32); Chloride 113 mmol/L (98-107); Creatinine Clr Calc Pharmacy 31.6 ml/min; Est GFR (Non-African American) 28.4; Glucose 87 mg/dl (70-99); Potassium 4.4 mmol/L (3.5-5.1); Sodium 142 mmol/L (136-145)
[2020-10-31 07:46] LABS: Troponin I < 0.015 ng/ml (0-0.045)
[2020-10-31] MEDS: allopurinoL 100 MG TAB PO SCH (08:06)
[2020-10-31] MEDS: DOCUSATE SODIUM 100 MG CAP PO SCH (08:06)
[2020-10-31] MEDS: HEPARIN SOD 5,000 UNIT/0.5 ML VIAL SQ SCH (08:08)
[2020-10-31] MEDS ORDERED: NON-FORMULARY MEDICATION (Krill Oil 500 mg capsule) PO SCH (09:00)
[2020-10-31] MEDS ORDERED: ISOSORBIDE MONO EXTENDED REL 60 MG TABCR PO SCH (09:00)
[2020-10-31] MEDS ORDERED: MULTIVITAMIN TAB PO SCH (09:00)
[2020-10-31] MEDS ORDERED: [UNRECOGNIZED DRUG - OTHER] PO SCH (09:00)
[2020-10-31] MEDS ORDERED: CALCIUM 600MG + VIT D 400 IU TAB PO SCH (09:00)
[2020-10-31] MEDS ORDERED: ISOSORBIDE MONO EXTENDED REL 30 MG TABCR PO SCH (09:00)
[2020-10-31] MEDS ORDERED: ASPIRIN 81 MG ECTAB PO SCH (09:00)
[2020-10-31] MEDS ORDERED: PANTOprazole 40 MG TAB PO SCH (09:00)
--- NOTE | 2020-10-31 10:13 | XCELERA ---
[id number]
--- NOTE | 2020-10-31 10:27 | Cardiology Progress Note ---
Date of Service October 31, 2020 Assessment & Plan (1) Syncope: No recurrent symptoms. No arrhythmias identified. Remote chance that this related to ischemia, but more likely this was related either to orthostasis or vagally mediated episode. With preserved LV systolic function I think his likelihood of malignant ventricular arrhythmias in the absence of symptoms is low. (2) Exertional angina: Will try him on higher dose of isosorbide mononitrate. His lisinopril could also be discontinued and amlodipine substituted if he continues to have some symptoms. Number next would also be an option. He wants to avoid invasive procedures primarily to limit his risk of contrast nephropathy and returning to dialysis. I think would be reasonable to exhaust medical therapy prior to proceeding in that direction. I had an extensive discussion with the patient this morning about limiting his activity. We discussed doing less activity and avoiding symptoms of angina by not exercising vigorously. He has agreed to give up some of the more strenuous work that he does at his job to his 4 minutes. He will avoid going to the gym and performing strenuous exercise until we have an opportunity to intensify his antianginal regimen. Admission and Anticipated Discharge Date Admission Date: October 30, 2020 Subjective This morning patient claims to be feeling well. He denies any recurrence of chest discomfort. He has been ambulatory around his room without symptoms. No dizziness or lightheadedness. Review of Systems Review of Systems: Per HPI Physical Exam Physical Exam: The patient is alert and oriented. Mood and affect appeared normal. He answered all questions appropriately. HEENT: Pupils are equal and reactive to light and accommodation. Extraocular movements are intact. The sclerae are anicteric. Neuro: Cranial nerves intact (wearing mask) Lungs: Clear to auscultation bilaterally. He has good air movement without use of accessory muscles. No rales wheezes or rhonchi. Cardiac: Heart demonstrates a regular rate and rhythm. Normal S1 and S2. No murmurs on examination. Pulses: The patient has palpable radial pulses bilaterally that are equal in intensity. Extremities: There was no evidence of hypoperfusion. There is no cyanosis or clubbing. There is no edema. Skin: I did not appreciate any rashes on examination today. Results & Data ([place]) Vital Signs (Past 12 Hours) Vital Signs Temp Pulse Pulse Resp BP BP Pulse Ox 10/31/20 08:03 76 25 H 10/31/20 08:01 73 25 H 166/82 H 96 10/31/20 08:00 36.5 C 10/31/20 07:00 60 20 10/31/20 04:38 36.6 C 72 20 145/45 H 96 10/31/20 01:00 36.8 C 68 18 164/81 H 97 Laboratory Results Abnormal Lab Results 10/30/20 10/30/20 10/30/20 11:20 11:20 11:20 WBC 7.12 RBC 3.58 L Hgb 10.7 L Hct 32.6 L MCV 91.1 MCH 29.9 MCHC 32.8 RDW Std Deviation 45.9 RDW Coeff of Catrina 13.9 Plt Count 124 L MPV 10.3 Immature Gran % (Auto) 0.0 Neut % (Auto) 80.6 Lymph % (Auto) 13.2 [place] % (Auto) 5.3 Eos % (Auto) 0.8 Baso % (Auto) 0.1 Neut # (Auto) 5.73 Lymph # (Auto) 0.94 L [place] # (Auto) 0.38 Eos # (Auto) 0.06 Baso # (Auto) 0.01 Immature Gran # (Auto) 0.00 PT 11.4 INR 1.1 APTT 26.6 PTT Ratio 1.0 Sodium 139 Potassium 4.9 Chloride 112 H Carbon Dioxide 24 Anion Gap 3.0 BUN 39 H Creatinine 2.35 H Est Cr Clr Drug Dosing Not Reportable Est GFR ( Amer) 29.6 Est GFR (Non-Af Amer) 25.5 BUN/Creatinine Ratio 16.5 Glucose 97 Calcium 8.9 Total Bilirubin 0.4 AST 16 ALT 23 Alkaline Phosphatase 105 Total Creatine Kinase 66 Troponin I < 0.015 Total Protein 7.3 Albumin 3.9 Globulin 3.4 Albumin/Globulin Ratio 1.1 Lipase 220 SARS-CoV-2, RNA, NAAT 10/30/20 10/31/20 10/31/20 17:12 06:21 06:21 WBC 5.03 RBC 3.48 L Hgb 10.5 L Hct 31.7 L MCV 91.1 MCH 30.2 MCHC 33.1 RDW Std Deviation 46.4 H RDW Coeff of Catrina 14.1 Plt Count 116 L MPV 10.2 Immature Gran % (Auto) Neut % (Auto) Lymph % (Auto) [place] % (Auto) Eos % (Auto) Baso % (Auto) Neut # (Auto) Lymph # (Auto) [place] # (Auto) Eos # (Auto) Baso # (Auto) Immature Gran # (Auto) PT INR APTT PTT Ratio Sodium 142 Potassium 4.4 Chloride 113 H Carbon Dioxide 23 Anion Gap 5.0 BUN 34 H Creatinine 2.15 H Est Cr Clr Drug Dosing 31.6 Est GFR ( Amer) 33.0 Est GFR (Non-Af Amer) 28.4 BUN/Creatinine Ratio 16.0 Glucose 87 Calcium 9.1 Total Bilirubin AST ALT Alkaline Phosphatase Total Creatine Kinase Troponin I < 0.015 < 0.015 Total Protein Albumin Globulin Albumin/Globulin Ratio Lipase SARS-CoV-2, RNA, NAAT 10/31/20 Unknown WBC RBC Hgb Hct MCV MCH MCHC RDW Std Deviation RDW Coeff of Catrina Plt Count MPV Immature Gran % (Auto) Neut % (Auto) Lymph % (Auto) [place] % (Auto) Eos % (Auto) Baso % (Auto) Neut # (Auto) Lymph # (Auto) [place] # (Auto) Eos # (Auto) Baso # (Auto) Immature Gran # (Auto) PT INR APTT PTT Ratio Sodium Potassium Chloride Carbon Dioxide Anion Gap BUN Creatinine Est Cr Clr Drug Dosing Est GFR ( Amer) Est GFR (Non-Af Amer) BUN/Creatinine Ratio Glucose Calcium Total Bilirubin AST ALT Alkaline Phosphatase Total Creatine Kinase Troponin I Total Protein Albumin Globulin Albumin/Globulin Ratio Lipase SARS-CoV-2, RNA, NAAT NEGATIVE Diagnostic Findings I reviewed his echocardiogram performed in the outpatient setting as well as his images obtained this morning. Preserved LV systolic function. No significant valvular heart disease. No regional wall motion abnormalities. ECG Additional Comments: Telemetry did not reveal any arrhythmia. PG Care Time/CCT Total # of Minutes Spent Total Time Spent with Patient: Total time spent is greater than 50% in coordination of care (as documented) at patient's floor/unit and/or counseling patient: Coding Level of Care Code 48660 Subseq Hosp Care Lvl 2 Diagnoses Syncope R55 Syncope type: unspecified Exertional angina I20.8 (1) Syncope Syncope type: unspecified Qualified Code(s): R55 - Syncope and collapse
--- NOTE | 2020-10-31 15:30 | Electrocardiogram Report ---
Test Reason : Blood Pressure : / mmHG Vent. Rate : 063 BPM Atrial Rate : 063 BPM P-R Int : 148 ms QRS Dur : 090 ms QT Int : 436 ms P-R-T Axes : 066 030 038 degrees QTc Int : 446 ms Normal sinus rhythm Normal ECG When compared with ECG of 30-OCT-2020 10:53, No significant change was found Confirmed by Dereje Lees ([id number]) on 10/31/2020 3:29:32 PM Referred By: REFERRED SELF Confirmed By:Shreyas Lees
[2020-10-31] MEDS ORDERED: TERAZOSIN HCL 5 MG CAP PO SCH (21:00)
--- NOTE | 2020-11-06 21:49 | Discharge Summary ---
Date of Service October 31, 2020 Admission HPI Per Admitting Provider 80yo male with CKD 3/4 and HTN who presents with an episode of passing out this am while working out at a local gym about 0815. He initially was riding an exercise bike. He noted that his HR got up to about 115. He started to have dyspnea with mid-sternal chest pain. Got off the bike, rested a little, then decided to do squats. He got chest pain again along with dyspnea while doing the squats. Rested once further. Symptoms improved. Was about to get on another exercise machine but he developed sweatiness, felt dizzy, then proceeded to pass out. Loss of consciousness for about 1 minute. When he regained consciousness he somehow managed to drive himself home. At home he called the [facility] cardiology office -- he was advised to come to ER. In the ER he reports no ongoing cardiopulmonary symptoms. During my admission assessment he said "I feel fine now." Denied recurrent chest pain since arriving in ER. Over the weekend he felt fatigued and stated "I just didn't feel well." No cp or dyspnea but felt unwell. Had good appetite over weekend. Just had positive lexiscan stress test earlier this month. Principal Diagnosis Syncope Discharge Exam Constitutional: well developed and well nourished; no acute distress and no altered mental status Eyes: PERRL ENMT: external ear and nose normal, oropharynx normal Neck: trachea midline, no thyromegaly no carotid bruits Respiratory: normal respiratory effort, lungs clear to auscultation Cardiovascular: Rate/Rhythm: regular rate and regular rhythm Heart Sounds: normal S1 and normal S2; no murmur Vessels: posterior tibial pulses present and dorsalis pedis pulses present; no JVD Extremities: no edema Gastrointestinal (Abdomen): normal bowel sounds, soft, nontender, no hepatosplenomegaly Musculoskeletal: no cyanosis or clubbing, extremities motor strength 5/5 Skin: no rashes, warm and dry scars from AV graft site, left upper arm - no bruit, no thrill Neurologic: deep tendon reflexes 2+ bilaterally and moves all extremities; no focal motor deficits muscle bulk left leg is less than right leg -- chronic per patient Psychiatric: A+Ox3, euthymic affect Lymphatic: no cervical lymphadenopathy Discharge Data Allergies Allergy/AdvReac Type Severity Reaction Status Date / Time No Known Drug Allergies Allergy Verified 11/06/20 13:29 Consultations 10/30/20 12:40 ED Decision to Admit Stat 10/30/20 14:26 Consult Cardiology Routine Ordered Studies 10/30/20 16:21 US carotid doppler BI Routine Hospital Course (1) Syncope: Appreciate input from cardio. No recurrent symptoms. No arrhythmias identified. Remote chance that this related to ischemia, but more likely this was related either to orthostasis or vagally mediated episode. With preserved LV systolic function I think his likelihood of malignant ventricular arrhythmias in the absence of symptoms is low. (2) Exertional angina: (appreciate cardio input: Will try him on higher dose of isosorbide mononitrate. His lisinopril could also be discontinued and amlodipine substituted if he continues to have some symptoms. Number next would also be an option. He wants to avoid invasive procedures primarily to limit his risk of contrast nephropathy and returning to dialysis. I think would be reasonable to exhaust medical therapy prior to proceeding in that direction. I had an extensive discussion with the patient this morning about limiting his activity. We discussed doing less activity and avoiding symptoms of angina by not exercising vigorously. He has agreed to give up some of the more strenuous work that he does at his job to his 4 minutes. He will avoid going to the gym and performing strenuous exercise until we have an opportunity to intensify his antianginal regimen. (3) Positive cardiac stress test: 10/11/20 lexiscan stress test. (4) Chronic kidney disease, stage IV (severe): baseline Cr about 2.3. 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 follows with [facility] nephrology. (6) Hypertension: Continue home meds except lisinopril given CKD. (7) BPH (benign prostatic hyperplasia): Continue alpha estefania. (8) Anemia: likely 2nd to CKD. stable H/H. (9) Hyperlipidemia: LDL 77 in March 2019. Consider repeat lipid profile while here. Continue statin in meantime. (10) DVT prophylaxis: heparin [address] on observation status obtain rapid COVID ag test for screening purposes Total Time Total Time Spent Total Time Spent (In Minutes): 32 Total Time Includes: Examination of the Patient, Discharge Planning and Medication Reconciliation Discharge Plan Discharge Items Patient Disposition: Home - Self-Care Reason For Visit: EXERTIONAL CHEST PAIN,SYNCOPE Discharge Diagnosis: exertional chest pain Activity: Resume your previous activity Non-emergency contact: Primary Care Provider Call non-emergency contact if: you have any medication questions Follow-up/Referrals: Sanket Burns DO [Primary Care Provider] - 11/06/20 9:20 am Diet: Dialysis Renal and Heart Healthy Addtl Attending Provider Instructions: limit YOUR activity. discussed doing less activity and avoiding symptoms of angina by not exercising vigorously. Please avoid going to the gym and performing strenuous exercise until we have an opportunity to intensify his antianginal regimen. Pending Studies at Discharge: No Stand-Alone Forms: My [facility] [employer], Smoking Cessation Medications and DC Order Prescriptions: New isosorbide mononitrate 60 mg Tablet Extended Release 24 Hr 60 mg PO QAM Qty: 30 RF: 0 Continued allopurinol 100 mg tablet 100 mg PO BID Qty: 60 RF: 6 terazosin 5 mg capsule 5 mg PO DAILY Qty: 90 RF: 1 atorvastatin 40 mg tablet 40 mg PO HS Qty: 90 RF: 3 nitroglycerin 0.4 mg tablet, sublingual 0.4 mg sublingual Q5M PRN (Reason: chest pain) Qty: 25 RF: 4 calcium carbonate 600 mg calcium (1,500 mg) tablet 600 mg PO DAILY RF: 0 multivitamin [Daily Multiple] tablet 1 tab PO DAILY RF: 0 aspirin 81 mg tablet,delayed release (DR/EC) 81 mg PO DAILY RF: 0 krill oil 500 mg capsule 500 mg PO DAILY RF: 0 docusate sodium [Colace] 100 mg capsule 100 mg PO BID RF: 0 jptzvbecsoq-[id number]-vit C-Mn 500-400-166.6 mg Tablet 1 tab PO DAILY RF: 0 omeprazole 20 mg Capsule,Delayed Release(Dr/Ec) 20 mg PO DAILY RF: 0 Discontinued lisinopril 10 mg tablet 10 mg PO DAILY Qty: 90 RF: 1 isosorbide mononitrate 30 mg tablet extended release 24 hr 30 mg PO DAILY Qty: 30 RF: 5 No Action amlodipine 5 mg tablet 5 mg PO DAILY Qty: 90 RF: 3 Discharge Orders: Discharge Order (Routine); Ordered 10/31/20 Ordered By: Estrada Peña Admission Data Admit Date/Time: 10/30/20 14:26 Attending Provider: Estrada Peña Admit Provider: Jose Manuel Pan Primary Care Provider: Sanket Burns Other Providers: Guanakito Lees ; Jose Manuel Pan Other Interventions: Discharge Summary Assessment (RN) Last Done: 10/31/20 14:22 Coding Level of Care Code D/C Day Management >30 mins Diagnoses Syncope R55 Syncope type: unspecified Exertional angina I20.8 Positive cardiac stress test R94.39 Chronic kidney disease, stage IV (severe) N18.4 S/P arteriovenous (AV) graft placement Z98.890 Hypertension I10 Hypertension type: essential hypertension BPH (benign prostatic hyperplasia) N40.0 Lower urinary tract symptom presence: symptoms absent Anemia D64.9 Anemia type: unspecified type Hyperlipidemia E78.2 Hyperlipidemia type: mixed hyperlipidemia DVT prophylaxis Z29.9 Time Spent (min) 32
== END 2020-10-31 14:44 | disposition home or self-care (01) ==
LOC: 1E 10:38 → ED 10:38 → SUATTDRO 14:26 → 1E 14:44